=== PATIENT | male | born 1960 | race African-American/Black ===

== ENCOUNTER 2016-12-15 18:01 | Inpatient (IN) | payer BC, MEDICAID ==
--- NOTE | 2016-12-15 19:48 | ER Document Report ---
ED Medical Screen (RME) - General Chief Complaint: Leg Swelling Stated Complaint: LEG PAIN, SHORTNESS OF BREATH Time Seen by Provider: 12/15/16 19:38 Notes: Patient is a 56 year old male presenting to the ED for shortness of breath and lower extremity edema. Patient state he has some chronic lower edema but his current edema is way worse than his baseline. Patient also has shortness of breath which is exacerbated with movement, activity, and laying in suspine position. Patient is not on any medications. Patient's PCP is in [place] and he does not have one here locally. I have greeted and performed a rapid initial assessment of this patient. A comprehensive ED assessment and evaluation of the patient, analysis of test results and completion of the medical decision making process will be conducted by additional ED providers. TRAVEL OUTSIDE OF THE [place] IN LAST 30 DAYS: No - Related Data Allergies/Adverse Reactions: hydrochlorothiazide [Hydrochlorothiazide] Allergy (Verified 12/15/16 19:36) lisinopril [Lisinopril] Allergy (Verified 12/15/16 19:36) Past Medical History - Past Medical History Cardiac Medical History: Reports: Hx Hypertension Pulmonary Medical History: Reports: Hx Asthma, Hx COPD Renal/ Medical History: Reports: Hx Renal Insufficiency. Denies: Hx Peritoneal Dialysis Psychiatric Medical History: Denies: Hx Depression Physical Exam - Vital signs Vitals: Temp Pulse Resp BP Pulse Ox 98.4 F 84 20 210/108 H 98 12/15/16 18:32 12/15/16 18:32 12/15/16 18:32 12/15/16 18:32 12/15/16 18:32 - Notes Notes: GENERAL: Alert, interacts well. No acute distress. LUNGS: Decreased breath sounds bilaterally right greater than left, inspiratory and expiratory wheezes. HEART: Regular rate and rhythm. No murmurs, gallops, or rubs. EXTREMITIES: 3+ pitting edema bilaterally extending to the knee. Course - Vital Signs Vital signs: Temp Pulse Resp BP Pulse Ox 98.4 F 84 20 210/108 H 98 12/15/16 18:32 12/15/16 18:32 12/15/16 18:32 12/15/16 18:32 12/15/16 18:32 - Laboratory Result Diagrams: 12/15/16 19:50 12/15/16 19:50 Laboratory results interpreted by me: 12/15/16 19:50 RBC 2.11 L Hgb 5.7 L Hct 18.6 L MCH 26.8 L MCHC 30.5 L RDW 19.4 H Scribe Documentation - Scribe Written by Eloy:: Eloy Smith 12/15/16 19:45 acting as scribe for :: Petr
[2016-12-15 20:07] LABS: ABSOLUTE EOSINOPHILS # (AUTO) 0.1 10^3/uL (0.0-0.6); ABSOLUTE LYMPHOCYTES (AUTO) 1.1 10^3/uL (0.5-4.7); ABSOLUTE MONOCYTES (AUTO) 0.6 10^3/uL (0.1-1.4); ABSOLUTE NEUT (AUTO) 3.6 10^3/uL (1.7-8.2); BASOPHILS % (AUTO) 0.7 % (0-2); EOSINOPHILS % (AUTO) 1.5 % (0-6); HEMATOCRIT 18.6 % (37.9-51.0); HGB HCT DIFFERENCE -1.5; LYMPHOCYTES % (AUTO) 21.2 % (13-45); MEAN CORPUSCULAR HEMOGLOBIN 26.8 pg (27.0-33.4); MEAN CORPUSCULAR HGB CONC 30.5 g/dL (32.0-36.0); MEAN CORPUSCULAR VOLUME 88 fl (80-97); MONOCYTES % (AUTO) 10.3 % (3-13); RED BLOOD COUNT 2.11 10^6/uL (4.35-5.55); RED CELL DISTRIBUTION WIDTH 19.4 % (11.5-14.0); SEGMENTED NEUTROPHILS % (AUTO) 66.3 % (42-78); WHITE BLOOD COUNT 5.4 10^3/uL (4.0-10.5)
[2016-12-15 20:10] LABS: HEMOGLOBIN 5.7 g/dL (13.5-17.0)
[2016-12-15 20:11] LABS: PROTHROMBIN TIME 14.7 SEC (11.4-15.4)
[2016-12-15 20:30] LABS: ALANINE AMINOTRANSFERASE 39 U/L (21-72); ALBUMIN 3.3 g/dL (3.5-5.0); ALKALINE PHOSPHATASE 119 U/L (38-126); ANION GAP 13 (5-19); ASPARTATE AMINO TRANSFERASE 18 U/L (17-59); BILIRUBIN,DIRECT 0.3 mg/dL (0.0-0.4); BILIRUBIN,TOTAL 0.3 mg/dL (0.2-1.3); CALCIUM 7.8 mg/dL (8.4-10.2); CARBON DIOXIDE 17 mmol/L (22-30); CHLORIDE 113 mmol/L (98-107); GLUCOSE 93 mg/dL (75-110); SODIUM 143.3 mmol/L (137-145); TOTAL PROTEIN 6.2 g/dL (6.3-8.2)
--- NOTE | 2016-12-15 20:30 | ER Document Report ---
ED Extremity Problem, Lower - General Chief Complaint: Leg Swelling Stated Complaint: LEG PAIN, SHORTNESS OF BREATH Time Seen by Provider: 12/15/16 19:38 TRAVEL OUTSIDE OF THE [place] IN LAST 30 DAYS: No - Related Data Allergies/Adverse Reactions: hydrochlorothiazide [Hydrochlorothiazide] Allergy (Verified 12/15/16 19:36) lisinopril [Lisinopril] Allergy (Verified 12/15/16 19:36) Past Medical History - Social History Family History: None Patient has suicidal ideation: No Patient has homicidal ideation: No - Past Medical History Cardiac Medical History: Reports: Hx Hypertension Pulmonary Medical History: Reports: Hx Asthma, Hx COPD Renal/ Medical History: Reports: Hx Renal Insufficiency. Denies: Hx Peritoneal Dialysis Psychiatric Medical History: Denies: Hx Depression Physical Exam - Vital signs Vitals: Temp Pulse Resp BP Pulse Ox 98.4 F 84 20 210/108 H 98 12/15/16 18:32 12/15/16 18:32 12/15/16 18:32 12/15/16 18:32 12/15/16 18:32 Course - Vital Signs Vital signs: Temp Pulse Resp BP Pulse Ox 98.4 F 84 20 210/108 H 98 12/15/16 18:32 12/15/16 18:32 12/15/16 18:32 12/15/16 18:32 12/15/16 18:32 - Laboratory Result Diagrams: 12/15/16 19:50 12/15/16 19:50 Laboratory results interpreted by me: 12/15/16 19:50 RBC 2.11 L Hgb 5.7 L Hct 18.6 L MCH 26.8 L MCHC 30.5 L RDW 19.4 H
--- NOTE | 2016-12-15 20:31 | ER Document Report ---
ED General - General Chief Complaint: Leg Swelling Stated Complaint: LEG PAIN, SHORTNESS OF BREATH Time Seen by Provider: 12/15/16 19:38 Mode of Arrival: Ambulatory Information source: Patient Notes: 56-year-old CRF HTN male who lives in [place] came into the emergency room tonight because of swelling to both of his legs that started Wednesday. pcp doctor is in [place] He states he has never had a blood transfusion or hemodialysis and his hemoglobin here is 5.7. Prior hemoglobin in our system show 7 - 8. Denies vomiting blood, hematuria, or anal bleeding. 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 TRAVEL OUTSIDE OF THE [place] IN LAST 30 DAYS: No - Related Data Allergies/Adverse Reactions: hydrochlorothiazide [Hydrochlorothiazide] Allergy (Verified 12/15/16 19:36) lisinopril [Lisinopril] Allergy (Verified 12/16/16 15:58) Angioneurotic Edema Home Medications: Current Home Medications No Home Medications 12/16/16 [History] Past Medical History - General Information source: Patient - Social History Smoking Status: Unknown if Ever Smoked Frequency of alcohol use: None Drug Abuse: None Lives with: Alone Family History: None Patient has suicidal ideation: No Patient has homicidal ideation: No - Past Medical History Cardiac Medical History: Reports: Hx Hypertension Pulmonary Medical History: Reports: Hx Asthma, Hx COPD Renal/ Medical History: Reports: Hx End Stage Renal Disease, Hx Renal Insufficiency. Denies: Hx Peritoneal Dialysis Psychiatric Medical History: Denies: Hx Depression Review of Systems - Review of Systems Constitutional: No symptoms reported EENT: No symptoms reported Cardiovascular: No symptoms reported Respiratory: No symptoms reported Gastrointestinal: No symptoms reported Genitourinary: No symptoms reported Male Genitourinary: No symptoms reported Musculoskeletal: See HPI Skin: No symptoms reported Hematologic/Lymphatic: No symptoms reported Neurological/Psychological: No symptoms reported Physical Exam - Vital signs Vitals: Temp Pulse Resp BP Pulse Ox 98.4 F 84 20 210/108 H 98 12/15/16 18:32 12/15/16 18:32 12/15/16 18:32 12/15/16 18:32 12/15/16 18:32 Interpretation: Normal - General General appearance: Appears well, Alert In distress: None - HEENT Head: Normocephalic, Atraumatic Eyes: Normal Conjunctiva: Normal Pupils: PERRL - Respiratory Respiratory status: No respiratory distress Chest status: Nontender Breath sounds: Wheezing - bilaterally Chest palpation: Normal - Cardiovascular Rhythm: Regular Heart sounds: Normal auscultation Murmur: No - Abdominal Inspection: Normal Distension: No distension Bowel sounds: Normal Tenderness: Nontender Organomegaly: No organomegaly - Genitourinary Scrotum: Normal - no edema - Back Back: Normal, Nontender. No: CVA tenderness - Extremities General upper extremity: Normal inspection, Nontender, Normal color, Normal ROM , Normal temperature General lower extremity: Nontender, Edema - bilateral pitting below the knees, Normal color, Normal ROM, Normal temperature, Normal weight bearing. No: Jair' s sign - Neurological Neuro grossly intact: Yes Cognition: Normal Orientation: AAOx4 [place] Coma Scale Eye Opening: Spontaneous [place] Coma Scale Verbal: Oriented [place] Coma Scale Motor: Obeys Commands [place] Coma Scale Total: 15 Speech: Normal Motor strength normal: LUE, RUE, LLE, RLE Sensory: Normal - Psychological Associated symptoms: Normal mood, Flat affect - Skin Skin Temperature: Warm Skin Moisture: Dry Skin Color: Normal Course - Re-evaluation Re-evalutation: 12/15/16 21:34 creatinine 15, potassium 6.6. bun 115, called dr. urbina , she will put in for dialysis in the morning and was OK with the orders except she wanted kaexolate 60gms given po and to Call dr. turk for Tialysis catheter put in. Orders per dr. banegas OK. No EKG changes. 12/15/16 21:40 dr. turk will put tialysis catheter in the pt. 12/15/16 21:45 dr. lowe admit to ICU 12/15/16 23:14 pt wanted more time before trialysis catheter is inseted so dr. turk left. I had spent 20 minutes. I have spent another 15 minutes reading the consent and the pt signed them. 12/15/16 23:25 was called again and the patient has signed the consent forms. Dilaudid 1 mg has been ordered per Dr. Bee's request. The patient is being transferred to room 606 in ICU 12/15/16 23:31 spoke to his brother who states he is of right mind to make his own decisions, works every day as a cook. I have asked his brother to call him and he said he would call him on his cell phone. 12/17/16 02:01 12/17/16 02:05 - Vital Signs Vital signs: Temp Pulse Resp BP Pulse Ox 97.6 F 75 15 190/109 H 97 12/17/16 00:00 12/16/16 19:00 12/16/16 22:06 12/16/16 22:06 12/16/16 22:06 - Laboratory Result Diagrams: 12/16/16 14:30 12/16/16 05:45 Laboratory results interpreted by me: 12/15/16 12/15/16 12/15/16 19:50 19:50 19:50 RBC 2.11 L Hgb 5.7 L Hct 18.6 L MCH 26.8 L MCHC 30.5 L RDW 19.4 H Potassium 6.6 H* Chloride 113 H Carbon Dioxide 17 L BUN 119 H Creatinine 15.25 H Est GFR ( Amer) 4 L Est GFR (Non-Af Amer) 3 L Calcium 7.8 L NT-Pro-B Natriuret Pep 93720 H Total Protein 6.2 L Albumin 3.3 L Urine Protein Urine Glucose (UA) Urine Blood Crossmatch 12/15/16 12/15/16 12/15/16 21:00 21:00 21:30 RBC 2.03 L Hgb 5.5 L Hct 17.7 L MCH MCHC 31.0 L RDW 19.1 H Potassium Chloride Carbon Dioxide BUN Creatinine Est GFR ( Amer) Est GFR (Non-Af Amer) Calcium NT-Pro-B Natriuret Pep Total Protein Albumin Urine Protein 100 H Urine Glucose (UA) 50 H Urine Blood SMALL H Crossmatch See Detail Discharge - Discharge Clinical Impression: Acute on chronic renal failure, Hypertension, Peripheral edema, hyperkalemia, COPD Disposition: ADMITTED INPATIENT Admitting Provider: Hospitalist Unit Admitted: ICU
[2016-12-15 20:37] LABS: BLOOD UREA NITROGEN 119 mg/dL (7-20)
--- NOTE | 2016-12-15 20:40 | RADIOLOGY REPORT (SQ) ---
EXAM DESCRIPTION: CHEST PA/LAT COMPLETED DATE/TIME: 12/15/2016 8:30 pm REASON FOR STUDY: Dyspnea COMPARISON: 11/19/2015 EXAM PARAMETERS: NUMBER OF VIEWS: two views TECHNIQUE: Digital Frontal and Lateral radiographic views of the chest acquired. RADIATION DOSE: NA LIMITATIONS: none FINDINGS: LUNGS AND PLEURA: Lung huff remain slightly hyperexpanded. No consolidation or effusion s. MEDIASTINUM AND HILAR STRUCTURES: No masses or contour abnormalities. HEART AND VASCULAR STRUCTURES: Heart is at the evidence of normal on today's study. No failure. BONES: No acute findings. HARDWARE: None in the chest. OTHER: No other significant finding. IMPRESSION: 1. Mild cardiac enlargement since prior study. No failure. Stable COPD. TECHNICAL DOCUMENTATION: JOB ID: [id number] [employer]- All Rights Reserved
[2016-12-15 20:51] LABS: CREATININE RESULT 15.25 mg/dL (0.52-1.25)
[2016-12-15 20:52] LABS: POTASSIUM 6.6 mmol/L (3.6-5.0)
[2016-12-15 21:21] LABS: HEMATOCRIT 17.7 % (37.9-51.0); HGB HCT DIFFERENCE -1.2; MEAN CORPUSCULAR HEMOGLOBIN 27.1 pg (27.0-33.4); MEAN CORPUSCULAR VOLUME 87 fl (80-97); RED BLOOD COUNT 2.03 10^6/uL (4.35-5.55); RED CELL DISTRIBUTION WIDTH 19.1 % (11.5-14.0); WHITE BLOOD COUNT 5.3 10^3/uL (4.0-10.5)
[2016-12-15 21:22] LABS: HEMOGLOBIN 5.5 g/dL (13.5-17.0)
[2016-12-15] MEDS ORDERED: INSULIN REG, HUMAN 100 UNIT/ML 3 ML VIAL (PYX) IV ONE (21:25)
[2016-12-15] MEDS ORDERED: DEXTROSE 50%-WATER 25 GM/50 ML DISP.SYRIN IV ONE (21:26)
[2016-12-15] MEDS ORDERED: ALBUTEROL SULFATE 0.083% NEB 2.5 MG/3 ML AMPUL NEB ONE (21:26)
[2016-12-15] MEDS ORDERED: CALCIUM GLUCONATE 1000 MG/10 ML INJ IV ONE (21:27)
[2016-12-15] MEDS ORDERED: NORMAL SALINE 250 ML IV PRN ×2 (21:27)
[2016-12-15] MEDS ORDERED: FUROSEMIDE INJ/PF 40 MG/4 ML SDV IV ONE ×2 (21:37→21:47)
[2016-12-15] MEDS ORDERED: ACETAMINOPHEN 325 MG TABLET PO PRN (21:48)
[2016-12-15] MEDS ORDERED: SODIUM BICARBONATE 650 MG TABLET PO SCH (22:00)
[2016-12-15] MEDS ORDERED: SODIUM POLYSTYRENE SULFONATE 15 GM/60 ML PO ONE (22:30)
[2016-12-15] MEDS: CLONIDINE HCL 0.2 MG TABLET PO SCH (22:37)
[2016-12-15] MEDS: HEPARIN SOD (PORCINE) 5,000 UNIT/ML 1 ML SYRINGE SUBCUT SCH (22:39)
[2016-12-15] MEDS: HYDRALAZINE HCL INJ/PF 20 MG/1 ML SDV IV PRN (22:42)
[2016-12-15 22:56] LABS: APPEARANCE,URINE CLEAR; BILIRUBIN,URINE NEGATIVE (NEGATIVE); GLUCOSE, URINE 50 mg/dL (NEGATIVE); KETONES,URINE NEGATIVE (NEGATIVE); LEUKOCYTE ESTERASE,URINE NEGATIVE (NEGATIVE); NITRITE,URINE NEGATIVE (NEGATIVE); PROTEIN,URINE 100 mg/dL (NEGATIVE); URINE SPECIFIC GRAVITY 1.008; UROBILINOGEN,URINE NEGATIVE mg/dL (<2.0)
[2016-12-15 23:09] LABS: FERRITIN 7.44 ng/mL (17.9-464.0)
[2016-12-15 23:15] LABS: URINE BARBITURATES SCREEN NEGATIVE; URINE METHADONE SCREEN NEGATIVE; URINE OPIATES LOW NEGATIVE; URINE PHENCYCLIDINE SCREEN NEGATIVE
[2016-12-15] MEDS ORDERED: HYDROMORPHONE HCL INJ/PF 2 MG/ML AMPULE IV ONE (23:25)
[2016-12-15 23:53] LABS: ADD HIVPANEL? NO; HIV (1 AND 2) ANTIBODY NEGATIVE (NEGATIVE)
[2016-12-15] MEDS ORDERED: HYDROMORPHONE HCL INJ/PF 2 MG/ML AMPULE ONE (23:54)
[2016-12-15] MEDS ORDERED: MAGNESIUM SULFATE 100 ML IV ONE (23:59)
[2016-12-16] MEDS ORDERED: LORAZEPAM INJ 2 MG/1 ML VIAL ONE (00:06)
[2016-12-16] MEDS ORDERED: LIDOCAINE 1% INJ-PF (10 MG/ML) 30 ML SDV ONE (00:18)
[2016-12-16] MEDS ORDERED: MAGNESIUM SULFATE/D5W 1 GM/100 ML RTUPB IV ONE (00:32)
[2016-12-16] MEDS ORDERED: DIAZEPAM INJ 10 MG/2 ML DISP.SYRIN IV PRN (00:58)
[2016-12-16] MEDS ORDERED: NITROGLYCERIN/D5W 50 MG/250 ML RTUINJ IV ONE ×2 (00:58→10:01)
[2016-12-16] MEDS ORDERED: LORAZEPAM INJ 2 MG/1 ML VIAL IV ONE (01:00)
[2016-12-16] MEDS: MAGNESIUM SULFATE/D5W 1 GM/100 ML RTUPB IV SCH ×3 (01:41→03:53)
[2016-12-16] MEDS ORDERED: DEXTROSE 5%-1/2 NORMAL SALINE 1,000 ML IV ONE (02:11)
[2016-12-16 02:14] LABS: ANION GAP 13 (5-19); BLOOD UREA NITROGEN 118 mg/dL (7-20); CALCIUM 7.9 mg/dL (8.4-10.2); CARBON DIOXIDE 16 mmol/L (22-30); CHLORIDE 115 mmol/L (98-107); GLUCOSE 67 mg/dL (75-110); SODIUM 143.6 mmol/L (137-145)
--- NOTE | 2016-12-16 02:19 | OPERATIVE REPORT E ---
Operative Report NAME: YUDITH DRAKE : 1960 AGE: 56Y DATE OF SURGERY: 12/15/2016 ROOM: 606 SURGEON: AMBER GOMEZ M.D. INDICATION FOR PROCEDURE: This 56-year-old male presented to the emergency room because of shortness of breath. Patient has history of chronic venous insufficiency and has been noncompliant. Patient's creatinine is 15; a year ago, it was 8. The patient has chronic renal failure and potassium was 6.6. Because of the renal failure and impending congestive heart failure from fluid overload, the patient is in need of dialysis first thing in the morning with a *------* hyperkalemia. Trialysis catheter has been requested for placement into the internal jugular vein. PROCEDURE: After consent was obtained, the patient's right neck was prepped and draped in the usual sterile manner. A time-out was achieved and then the right internal jugular vein was accessed percutaneously. Once there was a flash of venous blood in the syringe, the syringe was removed and a guidewire was advanced through the needle into the superior vena cava, which was confirmed by small amount of ectopy that was relieved when the guidewire was pulled back. The vein dilators were then placed over the guidewire and then using the Seldinger technique, the Trialysis catheter was advanced over the guidewire and the guidewire was removed. There was good flow through all lumen and each was flushed with saline. The catheter was secured in usual manner using 3-0 nylon and chest x-ray has been requested. Patient tolerated the procedure well. There were good breath sounds in the right hemithorax and patient will be dialyzed with this catheter first thing in the morning. DICTATING PHYSICIAN: AMBER GOMEZ M.D. [id number] PHY#: [id number] ID: [id number] JOB#: [id number] ACCT: [id number] cc:AMBER GOMEZ M.D. >
--- NOTE | 2016-12-16 02:23 | RADIOLOGY REPORT (SQ) ---
EXAM DESCRIPTION: CHEST SINGLE VIEW COMPLETED DATE/TIME: 12/16/2016 1:39 am REASON FOR STUDY: Trialysis catheter placement COMPARISON: 12/15/2016. EXAM PARAMETERS: NUMBER OF VIEWS: One view. TECHNIQUE: Single frontal radiographic view of the chest acquired. RADIATION DOSE: NA LIMITATIONS: Rotation. FINDINGS: LUNGS AND PLEURA: Mild mixed interstitial and airspace opacity. MEDIASTINUM AND HILAR STRUCTURES: No masses. Contour normal. HEART AND VASCULAR STRUCTURES: Heart normal in size. Normal vasculature. BONES: No acute findings. HARDWARE: Right internal jugular Trialysis catheter tip near the cavoatrial junction, partially obscu red. OTHER: No other significant finding. IMPRESSION: Adequate appearing right IJ line. Otherwise, stable. TECHNICAL DOCUMENTATION: JOB ID: [id number]
[2016-12-16 02:27] LABS: CREATININE RESULT 15.06 mg/dL (0.52-1.25)
[2016-12-16] MEDS ORDERED: CALCIUM GLUCONATE 1000 MG/10 ML INJ IV ONE (03:00)
[2016-12-16] MEDS ORDERED: NORMAL SALINE 250 ML IV PRN ×2 (04:30)
[2016-12-16] MEDS: DIAZEPAM 2 MG TABLET PO PRN ×2 (04:37→13:47)
[2016-12-16] MEDS ORDERED: CALCIUM GLUCONATE 1,000 MG in DEXTROSE 5%-WATER 50 ML IV ONE (04:45)
[2016-12-16] MEDS: CLONIDINE HCL 0.2 MG TABLET PO SCH ×3 (05:28→21:44)
[2016-12-16] MEDS: HEPARIN SOD (PORCINE) 5,000 UNIT/ML 1 ML SYRINGE SUBCUT SCH ×3 (05:29→21:45)
--- NOTE | 2016-12-16 06:09 | PDOC H&P ---
History of Present Illness Admission Date/PCP: 12/15/16 21:48 Patient complains of: Shortness of breath History of Present Illness: YUDITH DRAKE JR is a 56 year old male with history of hypertension, stage IV chronic kidney disease, anemia and cocaine abuse. He been in his usual state of health until approximately 24 hours prior to presentation developing shortness of breath and lower extremity edema which aeration and emergency room. In the emergency room he was found to have hypertensive emergency at 240/ 115, creatinine of 15, hemoglobin of 5.5, potassium of 6.6 without peak T waves , volume overload, and cocaine positive toxicology. He admits medication and lifestyle noncompliance, started on IV Lasix, calcium gluconate and insulin. He is referred to the hospitalist for admission. Surgery is consulted for trialysis catheter placement. Past Medical History Cardiac Medical History: Reports: Hypertension Pulmonary Medical History: Reports: Asthma, Chronic Obstructive Pulmonary Disease (COPD) Renal/ Medical History: Reports: Chronic Kidney Disease Psychiatric Medical History: Reports: Substance Abuse Denies: Depression Social History Information Source: Patient, Emergency Med Personnel, [facility] Records Lives with: Alone Smoking Status: Former Smoker Frequency of Alcohol Use: None Hx Recreational Drug Use: Yes Drugs: Cocaine Hx Prescription Drug Abuse: Yes - Advance Directive Resuscitation Status: Full Code Family History Family History: Hypertension Parental Family History Reviewed: Yes Children Family History Reviewed: Yes Sibling(s) Family History Reviewed.: Yes Medication/Allergy Home Medications: Albuterol Sulfate [Ventolin Hfa] 1 - 2 puff IH Q4 PRN 03/19/15 Fluticasone/Salmeterol [Advair 250-50 Diskus 14 Dose/Diskus] 1 inh IH Q12H 03/19 Tiotropium [place] [Spiriva Handihaler 18 mcg/dose (30 Dose)] 1 cap IH DAILY 02/23 Amlodipine Besylate [Norvasc 10 mg Tablet] 10 mg PO DAILY #30 tablet 03/21/15 Clonidine HCl [Catapres 0.2 mg Tablet] 0.2 mg PO Q8 #90 tablet 03/21/15 Ferrous Sulfate [Feosol 325 mg Tablet] 325 mg PO BIDPCBS #60 tablet 03/21/15 Furosemide [Lasix 80 mg Tablet] 80 mg PO DAILY #30 tablet 03/21/15 Sodium Bicarbonate [Sodium Bicarbonate 650 mg Tablet] 650 mg PO Q12 #60 tablet 03/21/15 Allergies/Adverse Reactions: hydrochlorothiazide [Hydrochlorothiazide] Allergy (Verified 12/15/16 19:36) lisinopril [Lisinopril] Allergy (Verified 12/15/16 19:36) Review of Systems Constitutional: ABSENT: chills, fever(s), headache(s), weight gain, weight loss Eyes: ABSENT: visual disturbances Ears: ABSENT: hearing changes Cardiovascular: ABSENT: chest pain, dyspnea on exertion, edema, orthropnea, palpitations Respiratory: ABSENT: cough, hemoptysis Gastrointestinal: ABSENT: abdominal pain, constipation, diarrhea, hematemesis, hematochezia, nausea, vomiting Genitourinary: ABSENT: dysuria, hematuria Musculoskeletal: ABSENT: joint swelling Integumentary: ABSENT: rash, wounds Neurological: ABSENT: abnormal gait, abnormal speech, confusion, dizziness, focal weakness, syncope Psychiatric: ABSENT: anxiety, depression, homidical ideation, suicidal ideation Endocrine: ABSENT: cold intolerance, heat intolerance, polydipsia, polyuria Hematologic/Lymphatic: ABSENT: easy bleeding, easy bruising Physical Exam Vital Signs: Temp Pulse Resp BP Pulse Ox 96.0 F L 84 13 190/114 H 98 12/16/16 04:00 12/16/16 02:58 12/16/16 04:25 12/16/16 04:25 12/16/16 04:25 Intake & Output 12/14/16 12/15/16 12/16/16 11:59 11:59 11:59 Intake Total 720 Output Total 600 Balance 120 Weight 90.7 kg General appearance: PRESENT: cooperative, mild distress, well-developed, well- nourished Head exam: PRESENT: atraumatic, normocephalic Eye exam: PRESENT: conjunctiva pink, EOMI, PERRLA. ABSENT: scleral icterus Ear exam: PRESENT: normal external ear exam Mouth exam: PRESENT: moist, tongue midline Neck exam: ABSENT: carotid bruit, JVD, lymphadenopathy, thyromegaly Respiratory exam: PRESENT: accessory muscle use, prolonged expiratory phas, retraction, symmetrical, tachypnea, wheezes. ABSENT: rhonchi, stridor Cardiovascular exam: PRESENT: gallop, RRR, +S1, +S2, systolic murmur, tachycardia. ABSENT: diastolic murmur Pulses: PRESENT: normal dorsalis pedis pul Vascular exam: PRESENT: normal capillary refill GI/Abdominal exam: PRESENT: normal bowel sounds, soft. ABSENT: distended, guarding, mass, organolmegaly, rebound, tenderness Rectal exam: PRESENT: deferred Extremities exam: PRESENT: full ROM, +1 edema. ABSENT: clubbing, joint swelling , tenderness Neurological exam: PRESENT: alert, awake, oriented to person, oriented to place , oriented to time, oriented to situation, CN II-XII grossly intact. ABSENT: motor sensory deficit Psychiatric exam: PRESENT: anxious Skin exam: PRESENT: dry, intact, warm. ABSENT: cyanosis, rash Results Laboratory Results: 12/16/16 01:45 12/15/16 12/15/16 12/15/16 21:53 21:53 21:53 Retic Count (auto) 2.64 Absolute Retic 0.054 Sodium Potassium Chloride Carbon Dioxide Anion Gap BUN Creatinine Est GFR ( Amer) Est GFR (Non-Af Amer) Glucose Calcium Magnesium 1.1 L* Iron 20.8 L TIBC 336 % Saturation 6 Ferritin 7.44 L Vitamin B12 535.0 Folate 11.00 12/16/16 01:45 Retic Count (auto) Absolute Retic Sodium 143.6 Potassium 6.0 H* Chloride 115 H Carbon Dioxide 16 L Anion Gap 13 BUN 118 H Creatinine 15.06 H Est GFR ( Amer) 4 L Est GFR (Non-Af Amer) 3 L Glucose 67 L Calcium 7.9 L Magnesium Iron TIBC % Saturation Ferritin Vitamin B12 Folate Impressions: Chest X-Ray 12/16/16 00:28 IMPRESSION: Adequate appearing right IJ line. Otherwise, stable. Assessment & Plan - Diagnosis (1) Acute on chronic renal failure Is this a current diagnosis for this admission?: YesPlan: Non-oliguric secondary to chronic uncontrolled hypertension, noncompliance and cocaine abuse. Trialysis catheter placed for hemodialysis, IV Lasix initiated, nephrology consultation pending avoiding nephrotoxic meds and doses. (2) Hypertensive emergency Is this a current diagnosis for this admission?: YesPlan: IV nitroglycerin, clonidine, Norvasc, hydralazine and Valium initiated (3) Cocaine abuse Is this a current diagnosis for this admission?: YesPlan: IV Valium initiated and supportive care consider outpatient rehab referral (4) Hyperkalemia Is this a current diagnosis for this admission?: YesPlan: IV calcium gluconate insulin, albuterol ordered, Kayexalate follow up chemistry and EKG (5) Anemia Is this a current diagnosis for this admission?: YesPlan: Likely multifactorial secondary to iron deficiency and chronic kidney disease 4 units of packed red blood cells ordered, anemia studies pending - Time Time Spent: 50 to 70 Minutes
[2016-12-16 06:14] LABS: ALANINE AMINOTRANSFERASE 40 U/L (21-72); ALBUMIN 2.9 g/dL (3.5-5.0); ALKALINE PHOSPHATASE 105 U/L (38-126); ANION GAP 16 (5-19); ASPARTATE AMINO TRANSFERASE 17 U/L (17-59); BILIRUBIN,DIRECT 0.3 mg/dL (0.0-0.4); BILIRUBIN,TOTAL 0.5 mg/dL (0.2-1.3); BLOOD UREA NITROGEN 118 mg/dL (7-20); CALCIUM 8.1 mg/dL (8.4-10.2); CARBON DIOXIDE 16 mmol/L (22-30); CHLORIDE 112 mmol/L (98-107); CREATINE KINASE 823 U/L (55-170); GLUCOSE 111 mg/dL (75-110); SODIUM 143.7 mmol/L (137-145); TOTAL PROTEIN 5.6 g/dL (6.3-8.2)
[2016-12-16 06:24] LABS: CREATININE RESULT 14.66 mg/dL (0.52-1.25)
[2016-12-16 06:26] LABS: CREATINE KINASE MB 10.6 ng/mL (<4.55)
[2016-12-16 06:34] LABS: TROPONIN I 0.341 ng/mL
[2016-12-16] MEDS: HYDRALAZINE HCL INJ/PF 20 MG/1 ML SDV IV PRN (06:58)
[2016-12-16] MEDS ORDERED: ASPIRIN 81 MG TABLET, CHEWABLE PO ONE ×2 (08:15→09:58)
--- NOTE | 2016-12-16 09:11 | EKG REPORT ---
SEVERITY:- ABNORMAL ECG - SINUS RHYTHM LEFT VENTRICULAR HYPERTROPHY : Confirmed by: Verito Strong MD 16-Dec-2016 09:10:13
--- NOTE | 2016-12-16 09:11 | EKG REPORT ---
SEVERITY:- ABNORMAL ECG - SINUS RHYTHM PROBABLE LEFT VENTRICULAR HYPERTROPHY : Confirmed by: Verito Strong MD 16-Dec-2016 09:10:09
[2016-12-16] MEDS ORDERED: AMLODIPINE BESYLATE 10 MG TABLET PO SCH (10:00)
[2016-12-16 10:05] LABS: CREATINE KINASE MB 10.9 ng/mL (<4.55); TROPONIN I 0.305 ng/mL
[2016-12-16] MEDS: FERROUS SULFATE 325 MG TABLET PO SCH ×2 (10:07→17:08)
[2016-12-16] MEDS: DOCUSATE SODIUM 100 MG CAPSULE PO SCH ×2 (10:08→17:08)
[2016-12-16] MEDS: NITROGLYCERIN/D5W 250 ML IV PRN ×2 (10:09→18:16)
[2016-12-16] MEDS ORDERED: HEPARIN SOD (PORCINE) 1,000 UNIT/ML 10 ML VIAL IV PRN (10:14)
--- NOTE | 2016-12-16 10:25 | PDOC PROGRESS REPORT ---
Subjective Progress Note for:: 12/16/16 Physical Exam Vital Signs: Temp Pulse Resp BP Pulse Ox 97.4 F 77 12 172/102 H 98 12/16/16 08:00 12/16/16 08:00 12/16/16 08:00 12/16/16 08:00 12/16/16 08:00 Intake & Output 12/15/16 12/16/16 12/17/16 06:59 06:59 06:59 Intake Total 1401 300 Output Total 1000 450 Balance 401 -150 Weight 90.7 kg Exam: GENERAL: lethargic, on dialysis, acutely ill-appearing HEENT: Conjunctiva clear, nonicteric, moist mucous membranes, + JVD, midline trachea, right-sided dialysis catheter RESPIRATORY: rales laterally to mid lung CARDIAC: Regular rate and rhythm; +s4, +sm lsb ABDOMEN: Soft, distended, nontender, positive bowel sounds, no rebound, no guarding EXTREMETIES: No cyanosis, clubbing; 4+ pitting edema NEUROLOGIC: Lethargic, unable to assess SKIN: No rash, wounds Results Laboratory Results: 12/16/16 05:45 12/15/16 12/15/16 12/15/16 21:53 21:53 21:53 Retic Count (auto) 2.64 Absolute Retic 0.054 Sodium Potassium Chloride Carbon Dioxide Anion Gap BUN Creatinine Est GFR ( Amer) Est GFR (Non-Af Amer) Glucose Calcium Magnesium 1.1 L* Iron 20.8 L TIBC 336 % Saturation 6 Ferritin 7.44 L Total Bilirubin AST ALT Alkaline Phosphatase Total Protein Albumin Vitamin B12 535.0 Folate 11.00 12/16/16 12/16/16 12/16/16 01:45 05:45 08:40 Retic Count (auto) Absolute Retic Sodium 143.6 143.7 Potassium 6.0 H* 6.0 H* Chloride 115 H 112 H Carbon Dioxide 16 L 16 L Anion Gap 13 16 BUN 118 H 118 H Creatinine 15.06 H 14.66 H Est GFR ( Amer) 4 L 4 L Est GFR (Non-Af Amer) 3 L 3 L Glucose 67 L 111 H Calcium 7.9 L 8.1 L Magnesium 1.9 Iron TIBC % Saturation Ferritin Total Bilirubin 0.5 AST 17 ALT 40 Alkaline Phosphatase 105 Total Protein 5.6 L Albumin 2.9 L Vitamin B12 Folate 12/16/16 12/16/16 12/16/16 05:45 05:45 08:40 Creatine Kinase 823 H 809 H CK-MB (CK-2) 10.60 H Troponin I 0.341 12/16/16 08:40 Creatine Kinase CK-MB (CK-2) 10.90 H Troponin I 0.305 Impressions: Chest X-Ray 12/16/16 00:28 IMPRESSION: Adequate appearing right IJ line. Otherwise, stable. Assessment & Plan - Diagnosis (1) Acute on chronic renal failure Qualifiers: Chronic kidney disease stage: stage 5, not on chronic dialysis Is this a current diagnosis for this admission?: YesPlan: Patient with stage IV CKD who approximately 2 years ago was instructed that he likely would need dialysis, but refused at that time. Patient was lost to follow-up. Patient represented last night with acute congestive heart failure and concurrent worsening renal failure with a creatinine of 15 and hyperkalemia and metabolic acidosis. Patient is currently receiving emergent hemodialysis and we appreciate nephrology's input into this case. Due to patient's current uremia, unable to assess if patient would want dialysis normally. Unable to reach family at this time. Continue with current plan. (2) Hypertensive emergency Is this a current diagnosis for this admission?: YesPlan: Patient currently on nitroglycerin drip. Blood pressure of 240/115 noted in the emergency department. Goal blood pressure today of systolic of 180. (3) Metabolic acidosis Is this a current diagnosis for this admission?: Yes (4) Acute congestive heart failure Qualifiers: Congestive heart failure type: unspecified congestive heart failure type Qualified Code(s): I50.9 - Heart failure, unspecified Is this a current diagnosis for this admission?: YesPlan: We will obtain echo. No beta-blockers secondary to cocaine use. No LIBERTY secondary to angioedema. Patient will likely be placed on ARB prior to discharge. (5) Elevated troponin Is this a current diagnosis for this admission?: YesPlan: Will likely secondary to hypertensive emergency, cocaine abuse, and symptomatic anemia. Continue to follow troponin. Repeat serial EKG. Cannot rule out coronary vasospasm. Continue nitroglycerin drip, aspirin. No beta blockers at this time secondary to cocaine abuse. (6) Acute metabolic encephalopathy Is this a current diagnosis for this admission?: YesPlan: Secondary to uremia will continue to follow after dialysis (7) Iron deficiency anemia Qualifiers: Iron deficiency anemia type: unspecified iron deficiency Qualified Code(s): D50.9 - Iron deficiency anemia, unspecified Is this a current diagnosis for this admission?: YesPlan: Patient is occult blood negative. This is a multifactorial anemia due to iron deficiency and anemia of chronic disease. Will give patient 4 units of packed red blood cells with a goal hemoglobin of 8 and no more than 11. (8) Anemia in chronic kidney disease Qualifiers: Chronic kidney disease stage: stage 5, not on chronic dialysis Qualified Code(s): N18.5 - Chronic kidney disease, stage 5; D63.1 - Anemia in chronic kidney disease Is this a current diagnosis for this admission?: Yes (9) Cocaine abuse Is this a current diagnosis for this admission?: Yes (10) Hyperkalemia Is this a current diagnosis for this admission?: YesPlan: Continue telemetry monitoring - Time Critical Time spent with patient: 35 or more minutes Medications reviewed and adjusted accordingly: Yes
[2016-12-16 10:38] LABS: ABSOLUTE LYMPHOCYTES (AUTO) 0.9 10^3/uL (0.5-4.7); ABSOLUTE MONOCYTES (AUTO) 0.6 10^3/uL (0.1-1.4); ABSOLUTE NEUT (AUTO) 4.7 10^3/uL (1.7-8.2); BASOPHILS % (AUTO) 0.3 % (0-2); EOSINOPHILS % (AUTO) 0.3 % (0-6); HEMATOCRIT 23.1 % (37.9-51.0); HGB HCT DIFFERENCE -0.6; LYMPHOCYTES % (AUTO) 14.8 % (13-45); MEAN CORPUSCULAR HEMOGLOBIN 28.1 pg (27.0-33.4); MEAN CORPUSCULAR HGB CONC 32.5 g/dL (32.0-36.0); MEAN CORPUSCULAR VOLUME 87 fl (80-97); MONOCYTES % (AUTO) 9.7 % (3-13); RED BLOOD COUNT 2.68 10^6/uL (4.35-5.55); RED CELL DISTRIBUTION WIDTH 18.1 % (11.5-14.0); SEGMENTED NEUTROPHILS % (AUTO) 74.9 % (42-78); WHITE BLOOD COUNT 6.2 10^3/uL (4.0-10.5)
[2016-12-16 10:42] LABS: HEMOGLOBIN 7.5 g/dL (13.5-17.0)
[2016-12-16] MEDS: TIOTROPIUM BROMIDE DPI 5 CAP/KIT (18 MCG/CAP) IH SCH (10:44)
[2016-12-16] MEDS: FLUTICASONE/SALMETEROL DISKUS 250-50 MCG/DOSE IH SCH ×2 (10:44→21:46)
[2016-12-16 15:35] LABS: HEMATOCRIT 26.4 % (37.9-51.0); HEMOGLOBIN 8.6 g/dL (13.5-17.0); HGB HCT DIFFERENCE -0.6; MEAN CORPUSCULAR HEMOGLOBIN 27.8 pg (27.0-33.4); MEAN CORPUSCULAR HGB CONC 32.7 g/dL (32.0-36.0); MEAN CORPUSCULAR VOLUME 85 fl (80-97); RED BLOOD COUNT 3.11 10^6/uL (4.35-5.55); RED CELL DISTRIBUTION WIDTH 17.6 % (11.5-14.0); WHITE BLOOD COUNT 5.6 10^3/uL (4.0-10.5)
[2016-12-16 15:50] LABS: CREATINE KINASE MB 9.04 ng/mL (<4.55)
[2016-12-16 16:00] LABS: TROPONIN I 0.191 ng/mL
--- NOTE | 2016-12-16 16:22 | PDOC CONSULTATION ---
Consultation Consult Date: 12/16/16 Attending physician:: SOMMER CARTER Consult reason:: I was asked by the emergency room provider, Cecilia Gutierrez last night, and the hospitalist service care of Dr. Carter today to see the patient for emergent need for initiation of renal replacement therapy due to uremia and hyperkalemia. History of Present Illness Admission Date/PCP: 12/15/16 21:48 History of Present Illness: Patient is a 56-year-old -[place] gentleman with history of chronic kidney disease stage V, hypertension, COPD and noncompliance who presented himself in the emergency room last night because of worsening lower extremity edema. Patient related that left leg swelling started about 4 days ago Wednesday. He denies shortness of breath to me when I asked him, however initial notes from the emergency room and admitting physician states that he was short of breath and he also told one of the ICU nurses today that he was actually short of breath. He denies any chest pain. He admits feeling tired sometimes, but denies any nausea nor vomiting. He admits that he has good appetite. Today when I was interviewing him he seems to be very sleepy telling me that he did not sleep the whole night since he was in the emergency room. His affect seems to be also bland and he seems to be not interested in communicating to anyone this morning. Patient is not a very good historian as he does not appear to give too much information. Last night he presented with a BUN of 119, creatinine of 15.25 with a GFR of 4, potassium of 6.6 and bicarbonate of 17. Previous records from March 21, 2015 revealed that at that time he had a BUN of 70, and creatinine of 9.11. Patient was hospitalized in March 2015 for the same reason of hyperkalemia and worsening kidney function. At that time the patient was clinically nonuremic. I had seen the patient in consultation at that time. I discuss about chronic kidney disease and its progression to the point of requiring renal replacement therapy at that time. I also discussed the benefits and risk of not going to dialysis. After a long discussion with the patient at the time he refused hemodialysis to be initiated. Patient was supposed to follow-up with her community living instructor but he did not follow-up with any provider after discharge. He said the last time he saw his primary care provider at [place], [place] was more than a year ago. He also admits that he has not been taking his medication since discharge. This morning I saw him during initiation of hemodialysis. Blood pressure seems a little bit better than when he came in. He is currently still on nitro drip. Dialysis catheter was placed in his right internal jugular by Dr. Hanna the surgeon continuity coordinator. I discussed the risk and benefits of doing hemodialysis treatment. Patient did not express any objection and we proceeded with hemodialysis treatment for the first time. Past Medical History Cardiac Medical History: Reports: Hypertension-primary Pulmonary Medical History: Reports: Chronic Obstructive Pulmonary Disease (COPD) Renal/ Medical History: Reports: Chronic Kidney Disease Stage V, Hyperkalemia Musculoskeltal Medical History: Reports: Gout Psychiatric Medical History: Reports: Substance Abuse - Cocaine from history from the emergency room Past Surgical History Past Surgical History: Reports: None Social History Information Source: Patient Lives with: Alone Smoking Status: Former Smoker Frequency of Alcohol Use: None Hx Recreational Drug Use: Yes Drugs: Cocaine - Per emergency room notes however the patient denies it today Hx Prescription Drug Abuse: Yes - Advance Directive Resuscitation Status: Full Code Family History Family History: Hypertension Parental Family History Reviewed: Yes Children Family History Reviewed: Yes Sibling(s) Family History Reviewed.: Yes Medication/Allergy Home Medications: Albuterol Sulfate [Ventolin Hfa] 1 - 2 puff IH Q4 PRN 03/19/15 Fluticasone/Salmeterol [Advair 250-50 Diskus 14 Dose/Diskus] 1 inh IH Q12H 03/19 Tiotropium [place] [Spiriva Handihaler 18 mcg/dose (30 Dose)] 1 cap IH DAILY 02/23 Amlodipine Besylate [Norvasc 10 mg Tablet] 10 mg PO DAILY #30 tablet 03/21/15 Clonidine HCl [Catapres 0.2 mg Tablet] 0.2 mg PO Q8 #90 tablet 03/21/15 Ferrous Sulfate [Feosol 325 mg Tablet] 325 mg PO BIDPCBS #60 tablet 03/21/15 Furosemide [Lasix 80 mg Tablet] 80 mg PO DAILY #30 tablet 03/21/15 Sodium Bicarbonate [Sodium Bicarbonate 650 mg Tablet] 650 mg PO Q12 #60 tablet 03/21/15 Allergies/Adverse Reactions: hydrochlorothiazide [Hydrochlorothiazide] Allergy (Verified 12/15/16 19:36) lisinopril [Lisinopril] Allergy (Verified 12/16/16 15:58) Angioneurotic Edema Review of Systems All systems: reviewed and no additional remarkable complaints except as stated Review of Systems: Constitutional: ABSENT: chills, fever(s), headache(s), weight gain, weight loss ; admits to fatigue Eyes: ABSENT: visual disturbances Ears: ABSENT: hearing changes Cardiovascular: ABSENT: chest pain, dyspnea on exertion, orthropnea, palpitations; initially denies shortness of breath but actually told one of the nurses that he was short of breath earlier, admits edema for 4 day Respiratory: ABSENT: cough, dyspnea, hemoptysis Gastrointestinal: ABSENT: abdominal pain, constipation, diarrhea, hematemesis, hematochezia, nausea, vomiting Genitourinary: ABSENT: dysuria, hematuria Musculoskeletal: ABSENT: joint swelling Integumentary: ABSENT: rash, wounds Neurological: [ABSENT: abnormal gait, abnormal speech, confusion, dizziness, focal weakness, numbness, syncope Psychiatric: ABSENT: anxiety, depression Endocrine:[ ABSENT: cold intolerance, heat intolerance, polydipsia, polyuria Hematologic/Lymphatic: ABSENT: easy bleeding, easy bruising, lymphadenopathy Physical Exam Vital Signs: Temp Pulse Resp BP Pulse Ox 97.7 F 76 12 170/107 H 97 12/16/16 11:46 12/16/16 14:38 12/16/16 14:38 12/16/16 14:38 12/16/16 14:38 Intake & Output 12/15/16 12/16/16 12/17/16 06:59 06:59 06:59 Intake Total 1401 600 Output Total 1000 4050 Balance 401 -3450 Weight 90.7 kg Vitals during dialysis this morning: Blood pressure 171/102, heart rate 72, blood flow rate of 250 mL/min, dialysate flow rate of 500 mL/min, patient currently on room air. Exam: General appearance: no acute distress, cooperative, well-developed, well- nourished, sleepy Head exam: PRESENT: atraumatic, normocephalic Eye exam: PRESENT: Conjunctiva pale, EOMI, PERRLA. ABSENT: conjunctival injection, scleral icterus Mouth exam: PRESENT: moist, neck supple, tongue midline Neck exam: PRESENT: full ROM. ABSENT: carotid bruit, JVD, lymphadenopathy, thyromegaly Respiratory exam: PRESENT: clear to auscultation bilaterally. ABSENT: rales, rhonchi, stridor, wheezes Cardiovascular exam: PRESENT: RRR, +S1, +S2. ABSENT: systolic murmur Pulses: PRESENT: normal radial pulses, normal dorsalis pedis pulses GI/Abdominal exam: PRESENT: normal bowel sounds, soft. ABSENT: guarding, mass, tenderness Rectal exam: deferred Extremities exam: PRESENT: full ROM. Grade 2/6 bilateral lower extremity pitting edema ABSENT: calf tenderness Musculoskeletal: PRESENT: full ROM. ABSENT: deformity Neurological exam: PRESENT: alert, Awake, Oriented to person, Oriented to place , Oriented to time, reflexes normal, CN II-XII grossly intact. ABSENT: motor sensory deficit Psychiatric exam: PRESENT: Slightly bland affect and seems not interested in communicating so well, normal mood. Answers questions by few phrases only ABSENT: homicidal ideation, suicidal ideation Skin exam: PRESENT: intact, dry, warm. ABSENT: rash Results Laboratory Results: 12/16/16 08:40 12/16/16 05:45 12/15/16 12/15/16 12/15/16 21:53 21:53 21:53 WBC RBC Hgb Hct MCV MCH MCHC RDW Plt Count Seg Neutrophils % Lymphocytes % Monocytes % Eosinophils % Basophils % Absolute Neutrophils Absolute Lymphocytes Absolute Monocytes Absolute Eosinophils Absolute Basophils Retic Count (auto) 2.64 Absolute Retic 0.054 Sodium Potassium Chloride Carbon Dioxide Anion Gap BUN Creatinine Est GFR ( Amer) Est GFR (Non-Af Amer) Glucose Calcium Magnesium 1.1 L* Iron 20.8 L TIBC 336 % Saturation 6 Ferritin 7.44 L Total Bilirubin AST ALT Alkaline Phosphatase Total Protein Albumin Vitamin B12 535.0 Folate 11.00 12/16/16 12/16/16 12/16/16 01:45 05:45 08:40 WBC RBC Hgb Hct MCV MCH MCHC RDW Plt Count Seg Neutrophils % Lymphocytes % Monocytes % Eosinophils % Basophils % Absolute Neutrophils Absolute Lymphocytes Absolute Monocytes Absolute Eosinophils Absolute Basophils Retic Count (auto) Absolute Retic Sodium 143.6 143.7 Potassium 6.0 H* 6.0 H* Chloride 115 H 112 H Carbon Dioxide 16 L 16 L Anion Gap 13 16 BUN 118 H 118 H Creatinine 15.06 H 14.66 H Est GFR ( Amer) 4 L 4 L Est GFR (Non-Af Amer) 3 L 3 L Glucose 67 L 111 H Calcium 7.9 L 8.1 L Magnesium 1.9 Iron TIBC % Saturation Ferritin Total Bilirubin 0.5 AST 17 ALT 40 Alkaline Phosphatase 105 Total Protein 5.6 L Albumin 2.9 L Vitamin B12 Folate 12/16/16 08:40 WBC 6.2 RBC 2.68 L Hgb 7.5 L Hct 23.1 L MCV 87 MCH 28.1 MCHC 32.5 RDW 18.1 H Plt Count 164 Seg Neutrophils % 74.9 Lymphocytes % 14.8 Monocytes % 9.7 Eosinophils % 0.3 Basophils % 0.3 Absolute Neutrophils 4.7 Absolute Lymphocytes 0.9 Absolute Monocytes 0.6 Absolute Eosinophils 0.0 Absolute Basophils 0.0 Retic Count (auto) Absolute Retic Sodium Potassium Chloride Carbon Dioxide Anion Gap BUN Creatinine Est GFR ( Amer) Est GFR (Non-Af Amer) Glucose Calcium Magnesium Iron TIBC % Saturation Ferritin Total Bilirubin AST ALT Alkaline Phosphatase Total Protein Albumin Vitamin B12 Folate 12/16/16 12/16/16 12/16/16 05:45 05:45 08:40 Creatine Kinase 823 H 809 H CK-MB (CK-2) 10.60 H Troponin I 0.341 12/16/16 08:40 Creatine Kinase CK-MB (CK-2) 10.90 H Troponin I 0.305 Impressions: Chest X-Ray 12/16/16 00:28 IMPRESSION: Adequate appearing right IJ line. Otherwise, stable. Assessment & Plan - Diagnosis (1) Acute uremia Is this a current diagnosis for this admission?: YesPlan: Patient has some encephalopathy, lower extremity edema, fatigue, and abnormal labs including hyperkalemia and severe anemia which requires emergency initiation of renal replacement therapy. After discussion of risks and benefits with patient, he agreed to proceed with hemodialysis treatment this morning. We did dialysis today for 2.5 hours, using the patient's trialysis, with one potassium bath during the first hour and then to potassium bath, blood flow rate of 150 mL per minute, dialysate flow rate of 100 mL per minute, ultrafiltration 3 L, no heparin and no Procrit during dialysis today since she is getting 4 units total of packed RBC blood transfusion. (2) End stage renal disease due to hypertension Is this a current diagnosis for this admission?: YesPlan: Patient will need chronic hemodialysis treatment moving forward. After the patient mental status improve, hopefully by tomorrow, I will discuss with him about planning for chronic hemodialysis treatment. Hopefully if he agrees with chronic hemodialysis treatment, we will need more permanent vascular access in the form of a PermCath for now. In preparation for chronic outpatient dialysis treatment, hepatitis panel is pending and we will do a PPD. He will also as maintenance planner to arrange outpatient hemodialysis treatment in [facility]. (3) Non-nephrotic range proteinuria Is this a current diagnosis for this admission?: Yes (5) Acute metabolic encephalopathy Is this a current diagnosis for this admission?: YesPlan: Due to the uremia and electrolyte abnormalities. (6) Hyperkalemia Is this a current diagnosis for this admission?: YesPlan: Patient was given initially with Kayexalate, IV Lasix, calcium gluconate, insulin with D50 50 yesterday. Today we did dialysis to resolve this. (7) Anemia in chronic kidney disease Qualifiers: Chronic kidney disease stage: stage 5, not on chronic dialysis Qualified Code(s): N18.5 - Chronic kidney disease, stage 5; D63.1 - Anemia in chronic kidney disease Is this a current diagnosis for this admission?: YesPlan: No evidence of any source of any bleeding. This is most likely secondary to anemia of chronic kidney disease which has been untreated for several years. Patient was transfused a total of 4 units of packed RBC. Ultrafiltration on today's dialysis should also improve patient's hemoglobin. Patient would need to be initiated on Procrit after today. (8) Iron deficiency anemia Qualifiers: Iron deficiency anemia type: unspecified iron deficiency Qualified Code(s): D50.9 - Iron deficiency anemia, unspecified Is this a current diagnosis for this admission?: YesPlan: Patient will be initiated on maintenance IV iron during dialysis treatment. (9) Secondary hyperparathyroidism (of renal origin) Is this a current diagnosis for this admission?: YesPlan: We will wait for the repeat PTH currently pending. Likely needs to start with treatment during dialysis. (10) Hypertensive emergency Is this a current diagnosis for this admission?: YesPlan: Patient is noncompliant with medications and has not been taking anything for unknown period of time. He is currently on nitro drip and the hospitalist service is managing this. I recommended the patient's blood pressure below word very slowly. Today systolic blood pressure of anywhere between 170-190s would be acceptable. In the next few days this can be lowered down slowly. (11) Metabolic acidosis Is this a current diagnosis for this admission?: YesPlan: This is improved with hemodialysis. (12) Elevated troponin Is this a current diagnosis for this admission?: Yes (13) Non-compliant behavior Is this a current diagnosis for this admission?: Yes (14) Cocaine abuse Is this a current diagnosis for this admission?: Yes - Notes Notes: Discussed with the emergency room provider Cecilia Gutierrez last night, Dr. Carter from the hospitalist service and the patient. - Time Time Spent: Greater than 70 Minutes
[2016-12-16] MEDS ORDERED: TUBERCULIN,PURIF.PROT.DERIV. 5 TU/0.1 ML TEST 1 ML VIAL ID ONE (17:00)
[2016-12-16 20:56] LABS: CREATINE KINASE MB 7.4 ng/mL (<4.55)
[2016-12-16 21:03] LABS: TROPONIN I 0.153 ng/mL
--- NOTE | 2016-12-17 05:40 | Physician Advisory Note ---
Physician Advisor ProgressNote .: Pursuant to the plan for [facility], I have reviewed the medical record for this patient. Physician Advisor Statement: Great documentation of HTN-ariel emerg. Please also consider documentin. "Acute __ type CHF" [systolic? ...] 2. "Acute metabolic acidosis due to ARF" 3. "Anemia of nutritional Fe defic" Thanks! CK
[2016-12-17] MEDS: HEPARIN SOD (PORCINE) 5,000 UNIT/ML 1 ML SYRINGE SUBCUT SCH ×3 (06:06→21:50)
[2016-12-17] MEDS: CLONIDINE HCL 0.2 MG TABLET PO SCH (06:08)
[2016-12-17] MEDS: DIAZEPAM 2 MG TABLET PO PRN (06:08)
[2016-12-17 07:17] LABS: ABSOLUTE EOSINOPHILS # (AUTO) 0.1 10^3/uL (0.0-0.6); ABSOLUTE LYMPHOCYTES (AUTO) 1.4 10^3/uL (0.5-4.7); ABSOLUTE MONOCYTES (AUTO) 0.7 10^3/uL (0.1-1.4); ABSOLUTE NEUT (AUTO) 3.6 10^3/uL (1.7-8.2); BASOPHILS % (AUTO) 0.5 % (0-2); EOSINOPHILS % (AUTO) 1.7 % (0-6); HEMATOCRIT 25.3 % (37.9-51.0); HEMOGLOBIN 8.5 g/dL (13.5-17.0); HGB HCT DIFFERENCE 0.2; LYMPHOCYTES % (AUTO) 23.9 % (13-45); MEAN CORPUSCULAR HEMOGLOBIN 28.3 pg (27.0-33.4); MEAN CORPUSCULAR HGB CONC 33.5 g/dL (32.0-36.0); MEAN CORPUSCULAR VOLUME 84 fl (80-97); RED CELL DISTRIBUTION WIDTH 17.8 % (11.5-14.0); SEGMENTED NEUTROPHILS % (AUTO) 61.9 % (42-78); WHITE BLOOD COUNT 5.9 10^3/uL (4.0-10.5)
[2016-12-17 07:27] LABS: ANION GAP 12 (5-19); BLOOD UREA NITROGEN 86 mg/dL (7-20); CALCIUM 7.9 mg/dL (8.4-10.2); CARBON DIOXIDE 22 mmol/L (22-30); CHLORIDE 105 mmol/L (98-107); CREATININE RESULT 10.65 mg/dL (0.52-1.25); GLUCOSE 81 mg/dL (75-110); PHOSPHORUS 7.4 mg/dL (2.5-4.5); POTASSIUM 5.2 mmol/L (3.6-5.0); SODIUM 139.4 mmol/L (137-145)
[2016-12-17] MEDS ORDERED: HYDRALAZINE HCL 50 MG TABLET PO ONE (07:30)
[2016-12-17] MEDS: ACETAMINOPHEN 325 MG TABLET PO PRN ×2 (07:52→19:57)
[2016-12-17] MEDS: AMLODIPINE BESYLATE 10 MG TABLET PO SCH (09:09)
[2016-12-17] MEDS: DOCUSATE SODIUM 100 MG CAPSULE PO SCH ×2 (09:09→17:03)
[2016-12-17] MEDS: ASPIRIN 325 MG TABLET PO SCH (09:10)
[2016-12-17] MEDS: FERROUS SULFATE 325 MG TABLET PO SCH ×2 (09:10→17:03)
[2016-12-17] MEDS: TIOTROPIUM BROMIDE DPI 5 CAP/KIT (18 MCG/CAP) IH SCH (09:10)
[2016-12-17] MEDS: FLUTICASONE/SALMETEROL DISKUS 250-50 MCG/DOSE IH SCH ×2 (09:10→21:50)
[2016-12-17] MEDS: HYDRALAZINE HCL 50 MG TABLET PO SCH ×2 (13:20→21:50)
[2016-12-17] MEDS: CLONIDINE HCL 0.1 MG TABLET PO SCH ×2 (13:20→21:50)
[2016-12-17] MEDS ORDERED: HYDRALAZINE HCL 50 MG TABLET PO SCH (14:00)
--- NOTE | 2016-12-17 17:42 | PDOC PROGRESS REPORT ---
Subjective Progress Note for:: 12/17/16 Subjective:: Resting comfortably when I see him. He denies any complaints at this time. Patient denies chest pain, nausea, vomiting, fever, chills. Physical Exam Vital Signs: Temp Pulse Resp BP Pulse Ox 98.3 F 75 14 186/105 H 98 12/17/16 04:00 12/16/16 19:00 12/17/16 06:00 12/17/16 05:51 12/17/16 06:00 Intake & Output 12/16/16 12/17/16 12/18/16 06:59 06:59 06:59 Intake Total 1401 3041 Output Total 1000 5325 Balance 401 -2284 Weight 90.7 kg 89.8 kg Exam: GENERAL: awake, alert, oriented x3; nad HEENT: Conjunctiva clear, nonicteric, moist mucous membranes, + JVD, midline trachea, right-sided dialysis catheter RESPIRATORY: rales bilateral bases CARDIAC: Regular rate and rhythm; +s4, +sm lsb ABDOMEN: Soft, nondistended, nontender, positive bowel sounds, no rebound, no guarding EXTREMETIES: No cyanosis, clubbing; 2+ pitting edema NEUROLOGIC: A+Ox3, CN grossly intact without deficits SKIN: No rash, wounds Results Laboratory Results: 12/17/16 06:00 12/16/16 12/16/16 12/16/16 08:40 08:40 14:30 WBC 6.2 5.6 RBC 2.68 L 3.11 L Hgb 7.5 L 8.6 L Hct 23.1 L 26.4 L MCV 87 85 MCH 28.1 27.8 MCHC 32.5 32.7 RDW 18.1 H 17.6 H Plt Count 164 159 Seg Neutrophils % 74.9 Lymphocytes % 14.8 Monocytes % 9.7 Eosinophils % 0.3 Basophils % 0.3 Absolute Neutrophils 4.7 Absolute Lymphocytes 0.9 Absolute Monocytes 0.6 Absolute Eosinophils 0.0 Absolute Basophils 0.0 Magnesium 1.9 12/17/16 06:00 WBC 5.9 RBC 3.00 L Hgb 8.5 L Hct 25.3 L MCV 84 MCH 28.3 MCHC 33.5 RDW 17.8 H Plt Count 156 Seg Neutrophils % 61.9 Lymphocytes % 23.9 Monocytes % 12.0 Eosinophils % 1.7 Basophils % 0.5 Absolute Neutrophils 3.6 Absolute Lymphocytes 1.4 Absolute Monocytes 0.7 Absolute Eosinophils 0.1 Absolute Basophils 0.0 Magnesium 12/16/16 12/16/16 12/16/16 05:45 05:45 08:40 Creatine Kinase 823 H 809 H CK-MB (CK-2) 10.60 H Troponin I 0.341 12/16/16 12/16/16 12/16/16 08:40 14:30 14:30 Creatine Kinase 704 H CK-MB (CK-2) 10.90 H 9.04 H Troponin I 0.305 0.191 12/16/16 12/16/16 20:10 20:10 Creatine Kinase 609 H CK-MB (CK-2) 7.40 H Troponin I 0.153 Impressions: Chest X-Ray 12/16/16 00:28 IMPRESSION: Adequate appearing right IJ line. Otherwise, stable. Assessment & Plan - Diagnosis (1) Acute on chronic renal failure Qualifiers: Chronic kidney disease stage: stage 5, not on chronic dialysis Is this a current diagnosis for this admission?: YesPlan: nonoliguric Patient with stage IV CKD who approximately 2 years ago was instructed that he likely would need dialysis, but refused at that time. Patient was lost to follow-up. Patient presented with acute congestive heart failure and concurrent worsening renal failure with a creatinine of 15 and hyperkalemia and metabolic acidosis. Patient has received emergent hemodialysis and we appreciate nephrology's input into this case. (2) Hypertensive emergency Is this a current diagnosis for this admission?: YesPlan: Patient off nitroglycerin drip. Blood pressure of 240/115 itially noted in the emergency department. Time, due to compliance concerns, will decrease clonidine and place patient on hydralazine 50 mg tid and Norvasc. (3) Metabolic acidosis Is this a current diagnosis for this admission?: YesPlan: Secondary to patient's underlying renal failure (4) Acute congestive heart failure Qualifiers: Congestive heart failure type: unspecified congestive heart failure type Qualified Code(s): I50.9 - Heart failure, unspecified Is this a current diagnosis for this admission?: YesPlan: still volume overloaded Pending echo. No beta-blockers secondary to cocaine use. No LIBERTY secondary to angioedema. Patient will likely be placed on ARB prior to discharge. (5) Elevated troponin Is this a current diagnosis for this admission?: YesPlan: Will likely secondary to hypertensive emergency, cocaine abuse, and symptomatic anemia. Cannot rule out coronary vasospasm. Continue aspirin. PRN nitroglycerin. No beta blockers at this time secondary to cocaine abuse. (6) Acute metabolic encephalopathy Is this a current diagnosis for this admission?: YesPlan: Secondary to uremia and cocaine intoxication. Improving. will continue to follow after each dialysis (7) Iron deficiency anemia Qualifiers: Iron deficiency anemia type: unspecified iron deficiency Qualified Code(s): D50.9 - Iron deficiency anemia, unspecified Is this a current diagnosis for this admission?: YesPlan: Patient is occult blood negative. This is a multifactorial anemia due to iron deficiency and anemia of chronic disease. Patient received 4 units of packed red blood cells on 12/16/16. Goal hemoglobin of 8 and no more than 11. (8) Anemia in chronic kidney disease Qualifiers: Chronic kidney disease stage: stage 5, not on chronic dialysis Qualified Code(s): N18.5 - Chronic kidney disease, stage 5; D63.1 - Anemia in chronic kidney disease Is this a current diagnosis for this admission?: YesPlan: Procrit by nephology after iron repletion (9) Cocaine abuse Is this a current diagnosis for this admission?: YesPlan: valium prn and consider zyprexa (10) Hyperkalemia Is this a current diagnosis for this admission?: YesPlan: Continue telemetry monitoring Improved - Time Time Spent with patient: 25-34 minutes Medications reviewed and adjusted accordingly: Yes Anticipated discharge: Home with Homehealth Within: within 48 hours
--- NOTE | 2016-12-17 18:56 | PDOC PROGRESS REPORT ---
Subjective Progress Note for:: 12/17/16 Subjective:: Patient is clinically looking better. He admits that he feels somewhat better although he does not really say much. His blood pressure is also improved. Overall he seems to be improved compared to yesterday. His 2 sons are at bedside when I entered the room today. Today I discussed with him our treatment plan considering that the patient is now at end-stage renal disease. I discussed with him that moving forward he would need to be in some kind of chronic renal replacement therapy. Discussed with him in- center hemodialysis, home hemodialysis and peritoneal dialysis. He is very interested in a home therapy options. I told him that we can she do home therapy once he is better overall. I plan to continue outpatient in center hemodialysis through a PermCath after discharge and after that he can choose what modality he wanted to do and arrange access placement for that modality. I explained to him that home renal replacement therapy options need some kind of training so he really we will need some time. He agreed to do so PermCath placement for continuation of in center hemodialysis and decide later of what modality for home renal replacement therapy he would want to do. He tells me that he lives with his friend so I asked him to make sure that his friend is willing to train with him if he chooses home hemodialysis and it is also better if his friend will train with him as well even if he chooses peritoneal dialysis. I also mention kidney transplant option but I specifically told him that he will only be considered for that if he is compliant with his medication and treatment, if his blood pressure is well controlled, and if he is drug-free. So at this time he will not be an candidate for that. Patient agreed to proceed with PermCath placement and he will be arranged for outpatient hemodialysis at [facility]. He son is at bedside seems to be very eager and enthusiastic and very concerned about their father. All questions answered. Physical Exam Vital Signs: Temp Pulse Resp BP Pulse Ox 97.7 F 85 16 183/94 H 98 12/17/16 16:00 12/17/16 16:00 12/17/16 17:00 12/17/16 16:51 12/17/16 17:00 Intake & Output 12/16/16 12/17/16 12/18/16 06:59 06:59 06:59 Intake Total 1401 3041 510 Output Total 1000 5325 1270 Balance 401 -3934 -760 Weight 90.7 kg 89.8 kg Exam: General appearance: PRESENT: no acute distress, cooperative, well-developed, well-nourished Head exam: PRESENT: atraumatic, normocephalic Eye exam: PRESENT: conjunctiva pale, PERRLA. ABSENT: scleral icterus Neck exam: ABSENT: JVD Respiratory exam: PRESENT: Diminished breath sounds. ABSENT: crackles, rales, rhonchi, unlabored, wheezes Cardiovascular exam: PRESENT: Regular rate rhythm -+S1, +S2. ABSENT: diastolic murmur, systolic murmur GI/Abdominal exam: PRESENT: normal bowel sounds, soft. ABSENT: guarding, mass, tenderness Extremities exam: Improved grade 1 bilateral lower extremity pitting edema Neurological exam: PRESENT: alert, awake, oriented to person, place and time. Skin exam: PRESENT: dry, warm, Results Laboratory Results: 12/17/16 06:00 12/17/16 06:00 12/17/16 12/17/16 06:00 06:00 WBC 5.9 RBC 3.00 L Hgb 8.5 L Hct 25.3 L MCV 84 MCH 28.3 MCHC 33.5 RDW 17.8 H Plt Count 156 Seg Neutrophils % 61.9 Lymphocytes % 23.9 Monocytes % 12.0 Eosinophils % 1.7 Basophils % 0.5 Absolute Neutrophils 3.6 Absolute Lymphocytes 1.4 Absolute Monocytes 0.7 Absolute Eosinophils 0.1 Absolute Basophils 0.0 Sodium 139.4 Potassium 5.2 H Chloride 105 Carbon Dioxide 22 Anion Gap 12 BUN 86 H Creatinine 10.65 H Est GFR ( Amer) 6 L Est GFR (Non-Af Amer) 5 L Glucose 81 Calcium 7.9 L Phosphorus 7.4 H 12/16/16 12/16/16 12/16/16 05:45 05:45 08:40 Creatine Kinase 823 H 809 H CK-MB (CK-2) 10.60 H Troponin I 0.341 12/16/16 12/16/16 12/16/16 08:40 14:30 14:30 Creatine Kinase 704 H CK-MB (CK-2) 10.90 H 9.04 H Troponin I 0.305 0.191 12/16/16 12/16/16 20:10 20:10 Creatine Kinase 609 H CK-MB (CK-2) 7.40 H Troponin I 0.153 Impressions: Chest X-Ray 12/16/16 00:28 IMPRESSION: Adequate appearing right IJ line. Otherwise, stable. Assessment & Plan - Diagnosis (1) Acute uremia Is this a current diagnosis for this admission?: YesPlan: Improved with acute hemodialysis treatment yesterday. Needs to continue hemodialysis treatment moving forward. (2) End stage renal disease due to hypertension Is this a current diagnosis for this admission?: YesPlan: As mentioned above different modalities for chronic renal replacement therapy since been explained and discussed with patient today. He is interested with home therapies to switch from after he is stable. For now he will continue in Center outpatient hemodialysis 3 times a week via PermCath upon discharge. We will ask for vascular surgery consult to put a PermCath. The maintenance planner is currently arranging outpatient hemodialysis at [facility]. Patient also applied for Medicaid. Once patient is a stable and everything is arranged and he can be discharged home. Next hemodialysis here in the hospital will be planned for tomorrow. Orders are written. Start Nephrocaps daily. (3) Non-nephrotic range proteinuria Is this a current diagnosis for this admission?: Yes (4) Hyperphosphatemia Is this a current diagnosis for this admission?: YesPlan: Start PhosLo 667 mg 2 capsules with meals. (5) Acute metabolic encephalopathy Is this a current diagnosis for this admission?: YesPlan: Improved mentation compared to yesterday. However the patient seems to be still a little bit withdrawn and has this disinterest look but this could just be his personality. (6) Hyperkalemia Is this a current diagnosis for this admission?: YesPlan: Improved. Patient needs to be on low potassium renal diet. (7) Anemia in chronic kidney disease Qualifiers: Chronic kidney disease stage: stage 5, not on chronic dialysis Qualified Code(s): N18.5 - Chronic kidney disease, stage 5; D63.1 - Anemia in chronic kidney disease Is this a current diagnosis for this admission?: YesPlan: Patient had 4 units packed RBC transfusion yesterday. He will continue to receive Procrit during dialysis treatment. (8) Iron deficiency anemia Qualifiers: Iron deficiency anemia type: unspecified iron deficiency Qualified Code(s): D50.9 - Iron deficiency anemia, unspecified Is this a current diagnosis for this admission?: YesPlan: Discontinue oral iron. We will give the patient IV Venofer during dialysis treatment. (9) Secondary hyperparathyroidism (of renal origin) Is this a current diagnosis for this admission?: YesPlan: PTH is very elevated at 2299. We will start IV Zemplar during dialysis treatment. (10) Hypertensive emergency Is this a current diagnosis for this admission?: YesPlan: Improving. Management per primary service. (11) Metabolic acidosis Is this a current diagnosis for this admission?: YesPlan: Resolved with dialysis. (12) Elevated troponin Is this a current diagnosis for this admission?: YesPlan: Improving. (13) Non-compliant behavior Is this a current diagnosis for this admission?: Yes (14) Cocaine abuse Is this a current diagnosis for this admission?: Yes - Time Time with patient: Greater than 35 minutes
--- NOTE | 2016-12-17 19:35 | XCELERA REPORT ---
[address] [address] Transthoracic Echocardiogram Report Name: YUDITH DRAKE JR Age: 56 yrs Gender: Male : 1960 Patient Status: Inpatient Patient Location: ICU\S\606\S\A Study Date: 12/17/2016 08:12 AM Height: 74 in Weight: 197 lb BSA: 2.2 m2 Procedure: A complete two-dimensional transthoracic echocardiogram was performed (2D, M-mode, spectral and color flow Doppler). The study was technically adequate with some images being suboptimal in quality. Reason For Study: chf Ordering Physician: SOMMER CARTER Performed By: Ruth Noel Interpretation Summary The left ventricular ejection fraction is normal. Doppler measurements suggest pseudonormalized left ventricular relaxation, which is associated with grade II/IV or mild to moderate diastolic dysfunction There is moderate concentric left ventricular hypertrophy. The left ventricle is grossly normal size. No regional wall motion abnormalities noted. The right ventricle is mildly dilated. The right ventricular systolic function is normal. The right atrium is mildly dilated. The left atrium is mildly dilated. There is a trace to mild amount of mitral regurgitation There is no mitral valve stenosis. There is a trace amount of aortic regurgitation There is no aortic valve stenosis There is a mild amount of tricuspid regurgitation There is mild to moderate pulmonary hypertension by echo Right ventricular systolic pressure is estimated to be elevated at 40- 50mmHg. The aortic root is not well visualized but is probably normal size. The inferior vena cava appeared normal and decreased > 50% with respiration (RAP 5-10 mmHg) There is no pericardial effusion. MMode/2D Measurements \T\ Calculations RVDd: 3.8 cm LVIDd: 5.4 cm FS: 38.5 % Ao root diam: 3.0 cm IVSd: 1.7 cm LVIDs: 3.3 cm EDV(Teich): 141.8 ml LVPWd: 1.6 cm ESV(Teich): 45.0 ml Ao root area: 7.2 cm2 EF(Teich): 68.3 % LA dimension: 4.3 cm Doppler Measurements \T\ Calculations MV E max natalie: MV P1/2t max natalie: Ao V2 max: LV V1 max P.9 cm/sec 85.4 cm/sec 174.6 cm/sec 8.7 mmHg MV A max natalie: MV P1/2t: 71.4 msec Ao max PG: LV V1 max: 100.7 cm/sec 12.2 mmHg 147.6 cm/sec MV E/A: 0.85 MVA(P1/2t): 3.1 cm2 MV dec slope: 350.5 cm/sec2 MV dec time: 0.24 sec PA V2 max: TR max natalie: 110.6 cm/sec 313.6 cm/sec PA max P.9 mmHgTR max P.4 mmHg Left Ventricle The left ventricle is grossly normal size. There is moderate concentric left ventricular hypertrophy. The left ventricular ejection fraction is normal. Doppler measurements suggest pseudonormalized left ventricular relaxation, which is associated with grade II/IV or mild to moderate diastolic dysfunction. No regional wall motion abnormalities noted. Right Ventricle The right ventricle is mildly dilated. There is normal right ventricular wall thickness. The right ventricular systolic function is normal. Atria The right atrium is mildly dilated. The left atrium is mildly dilated. A patent foramen ovale is present. Mitral Valve The mitral valve is grossly normal. There is no mitral valve stenosis. There is a trace to mild amount of mitral regurgitation. Aortic Valve The aortic valve is grossly normal. There is no aortic valve stenosis. There is a trace amount of aortic regurgitation. Tricuspid Valve The tricuspid valve is not well visualized, but is grossly normal. There is no tricuspid stenosis. There is a mild amount of tricuspid regurgitation. There is mild to moderate pulmonary hypertension by echo. Right ventricular systolic pressure is estimated to be elevated at 40-50mmHg. Pulmonic Valve The pulmonic valve is not well visualized. Great Vessels The aortic root is not well visualized but is probably normal size. The inferior vena cava appeared normal and decreased > 50% with respiration (RAP 5-10 mmHg). Effusions There is no pericardial effusion. : SOMMER CARTER > Jacques Godoy
[2016-12-18 04:58] LABS: ABSOLUTE EOSINOPHILS # (AUTO) 0.1 10^3/uL (0.0-0.6); ABSOLUTE LYMPHOCYTES (AUTO) 1.4 10^3/uL (0.5-4.7); ABSOLUTE MONOCYTES (AUTO) 0.7 10^3/uL (0.1-1.4); ABSOLUTE NEUT (AUTO) 3.6 10^3/uL (1.7-8.2); BASOPHILS % (AUTO) 0.5 % (0-2); EOSINOPHILS % (AUTO) 1.8 % (0-6); HEMATOCRIT 26.8 % (37.9-51.0); HEMOGLOBIN 8.9 g/dL (13.5-17.0); HGB HCT DIFFERENCE -0.1; LYMPHOCYTES % (AUTO) 24.3 % (13-45); MEAN CORPUSCULAR HEMOGLOBIN 28.1 pg (27.0-33.4); MEAN CORPUSCULAR HGB CONC 33.1 g/dL (32.0-36.0); MEAN CORPUSCULAR VOLUME 85 fl (80-97); MONOCYTES % (AUTO) 12.3 % (3-13); RED BLOOD COUNT 3.15 10^6/uL (4.35-5.55); RED CELL DISTRIBUTION WIDTH 17.8 % (11.5-14.0); SEGMENTED NEUTROPHILS % (AUTO) 61.1 % (42-78); WHITE BLOOD COUNT 5.9 10^3/uL (4.0-10.5)
[2016-12-18 05:25] LABS: ANION GAP 13 (5-19); BLOOD UREA NITROGEN 90 mg/dL (7-20); CALCIUM 7.8 mg/dL (8.4-10.2); CARBON DIOXIDE 19 mmol/L (22-30); CHLORIDE 106 mmol/L (98-107); CREATININE RESULT 11.18 mg/dL (0.52-1.25); GLUCOSE 75 mg/dL (75-110); PHOSPHORUS 8.1 mg/dL (2.5-4.5); POTASSIUM 5.7 mmol/L (3.6-5.0); SODIUM 137.7 mmol/L (137-145)
[2016-12-18] MEDS: CLONIDINE HCL 0.1 MG TABLET PO SCH ×3 (06:08→21:51)
[2016-12-18] MEDS: HYDRALAZINE HCL 50 MG TABLET PO SCH ×3 (06:12→21:51)
[2016-12-18] MEDS: HEPARIN SOD (PORCINE) 5,000 UNIT/ML 1 ML SYRINGE SUBCUT SCH ×3 (06:13→21:51)
[2016-12-18] MEDS ORDERED: HEPARIN SOD (PORCINE) 1,000 UNIT/ML 10 ML VIAL IV PRN (07:19)
[2016-12-18] MEDS ORDERED: EPOETIN ALFA INJ 20000 UNIT/1 ML VIAL (RENAL) IV PRN (07:20)
[2016-12-18] MEDS ORDERED: PARICALCITOL INJ/PF 5 MCG/1 ML SDV IV PRN (07:21)
[2016-12-18] MEDS ORDERED: IRON SUCROSE COMPLEX INJ/PF 100 MG/5 ML SDV IV PRN (07:22)
[2016-12-18] MEDS: ASPIRIN 325 MG TABLET PO SCH (11:53)
[2016-12-18] MEDS: AMLODIPINE BESYLATE 10 MG TABLET PO SCH (11:53)
[2016-12-18] MEDS: DOCUSATE SODIUM 100 MG CAPSULE PO SCH ×2 (11:54→17:29)
[2016-12-18] MEDS: CALCIUM ACETATE 667 MG CAPSULE PO SCH ×3 (11:54→17:28)
[2016-12-18] MEDS: DIAZEPAM 2 MG TABLET PO PRN ×2 (11:57→19:53)
[2016-12-18] MEDS: ACETAMINOPHEN 325 MG TABLET PO PRN (11:57)
[2016-12-18] MEDS ORDERED: NITROGLYCERIN 0.4 MG/TAB 25 TAB/BOTTLE SL PRN (13:41)
--- NOTE | 2016-12-18 13:52 | PDOC PROGRESS REPORT ---
Subjective Progress Note for:: 12/18/16 Subjective:: Eating lunch when I see him. He denies any complaints at this time. Patient denies chest pain, nausea, vomiting, fever, chills, diarrhea, constipation, new onset weakness. He reports his breathing is improving. Swelling is improving but still present Physical Exam Vital Signs: Temp Pulse Resp BP Pulse Ox 98.8 F 77 20 167/86 H 99 12/18/16 03:09 12/18/16 03:09 12/18/16 03:09 12/18/16 03:09 12/18/16 03:09 Intake & Output 12/17/16 12/18/16 12/19/16 06:59 06:59 06:59 Intake Total 3041 938 Output Total 5325 1445 Balance -2284 -507 Weight 89.8 kg 88.6 kg Exam: GENERAL: awake, alert, oriented x3; nad HEENT: Conjunctiva clear, nonicteric, moist mucous membranes, + JVD, midline trachea, right-sided dialysis catheter RESPIRATORY: rales bilateral bases CARDIAC: Regular rate and rhythm; +s4, +sm lsb ABDOMEN: Soft, nondistended, nontender, positive bowel sounds, no rebound, no guarding EXTREMETIES: No cyanosis, clubbing; 2+ pitting edema NEUROLOGIC: A+Ox3, CN grossly intact except right eye exotropia (chronic) SKIN: No rash, wounds Results Laboratory Results: 12/18/16 03:46 12/18/16 03:46 12/17/16 12/17/16 12/18/16 06:00 06:00 03:46 WBC 5.9 5.9 RBC 3.00 L 3.15 L Hgb 8.5 L 8.9 L Hct 25.3 L 26.8 L MCV 84 85 MCH 28.3 28.1 MCHC 33.5 33.1 RDW 17.8 H 17.8 H Plt Count 156 161 Seg Neutrophils % 61.9 61.1 Lymphocytes % 23.9 24.3 Monocytes % 12.0 12.3 Eosinophils % 1.7 1.8 Basophils % 0.5 0.5 Absolute Neutrophils 3.6 3.6 Absolute Lymphocytes 1.4 1.4 Absolute Monocytes 0.7 0.7 Absolute Eosinophils 0.1 0.1 Absolute Basophils 0.0 0.0 Sodium 139.4 Potassium 5.2 H Chloride 105 Carbon Dioxide 22 Anion Gap 12 BUN 86 H Creatinine 10.65 H Est GFR ( Amer) 6 L Est GFR (Non-Af Amer) 5 L Glucose 81 Calcium 7.9 L Phosphorus 7.4 H 12/18/16 03:46 WBC RBC Hgb Hct MCV MCH MCHC RDW Plt Count Seg Neutrophils % Lymphocytes % Monocytes % Eosinophils % Basophils % Absolute Neutrophils Absolute Lymphocytes Absolute Monocytes Absolute Eosinophils Absolute Basophils Sodium 137.7 Potassium 5.7 H Chloride 106 Carbon Dioxide 19 L Anion Gap 13 BUN 90 H Creatinine 11.18 H Est GFR ( Amer) 6 L Est GFR (Non-Af Amer) 5 L Glucose 75 Calcium 7.8 L Phosphorus 8.1 H 12/16/16 12/16/16 12/16/16 05:45 05:45 08:40 Creatine Kinase 823 H 809 H CK-MB (CK-2) 10.60 H Troponin I 0.341 12/16/16 12/16/16 12/16/16 08:40 14:30 14:30 Creatine Kinase 704 H CK-MB (CK-2) 10.90 H 9.04 H Troponin I 0.305 0.191 12/16/16 12/16/16 20:10 20:10 Creatine Kinase 609 H CK-MB (CK-2) 7.40 H Troponin I 0.153 Impressions: Chest X-Ray 12/16/16 00:28 IMPRESSION: Adequate appearing right IJ line. Otherwise, stable. Assessment & Plan - Diagnosis (1) Acute on chronic renal failure Qualifiers: Chronic kidney disease stage: stage 4 (severe) Is this a current diagnosis for this admission?: YesPlan: Nonoliguric Patient with stage IV CKD who approximately 2 years ago was instructed that he likely would need dialysis, but refused at that time. Patient was lost to follow-up. Patient presented with acute congestive heart failure and concurrent worsening renal failure with a creatinine of 15 and hyperkalemia and metabolic acidosis. Patient has received emergent hemodialysis and we appreciate nephrology's input into this case. We will need dialysis center placement in consultation for permanent catheter. (2) Hypertensive emergency Is this a current diagnosis for this admission?: YesPlan: Blood pressure of 240/115 initially noted in the emergency department on . Time, due to compliance concerns, will decrease clonidine and increase hydralazine 100 mg tid. Continue Norvasc and would like to add ARB if approved by nephro for his diastolic dysfunction. (3) Metabolic acidosis Is this a current diagnosis for this admission?: YesPlan: Secondary to patient's underlying renal failure (4) Acute congestive heart failure Qualifiers: Congestive heart failure type: unspecified congestive heart failure type Qualified Code(s): I50.9 - Heart failure, unspecified Is this a current diagnosis for this admission?: YesPlan: volume overloaded Echo Done on 12/17/16 reveals normal EF and grade 2 diastolic dysfunction, moderate concentric LVH, moderate pulmonary hypertension. No beta-blockers secondary to cocaine use. No LIBERTY secondary to angioedema. Patient will likely be placed on ARB prior to discharge. (5) Elevated troponin Is this a current diagnosis for this admission?: YesPlan: Will likely secondary to hypertensive emergency, cocaine abuse, and symptomatic anemia. Cannot rule out coronary vasospasm. Continue aspirin. PRN nitroglycerin. No beta blockers at this time secondary to cocaine abuse. (6) Acute metabolic encephalopathy Is this a current diagnosis for this admission?: YesPlan: Secondary to uremia and cocaine intoxication. Improved (7) Iron deficiency anemia Qualifiers: Iron deficiency anemia type: unspecified iron deficiency Qualified Code(s): D50.9 - Iron deficiency anemia, unspecified Is this a current diagnosis for this admission?: YesPlan: Patient is occult blood negative. This is a multifactorial anemia due to iron deficiency and anemia of chronic disease. Patient received 4 units of packed red blood cells on 12/16/16. Goal hemoglobin of 8 and no more than 11. (8) Anemia in chronic kidney disease Qualifiers: Chronic kidney disease stage: stage 5, not on chronic dialysis Qualified Code(s): N18.5 - Chronic kidney disease, stage 5; D63.1 - Anemia in chronic kidney disease Is this a current diagnosis for this admission?: YesPlan: Procrit by nephology after iron repletion (9) Cocaine abuse Is this a current diagnosis for this admission?: YesPlan: valium prn and consider zyprexa (10) Hyperkalemia Is this a current diagnosis for this admission?: YesPlan: Continue telemetry monitoring Currently 5.7. - Time Time Spent with patient: 25-34 minutes Medications reviewed and adjusted accordingly: Yes
[2016-12-18] MEDS: FLUTICASONE/SALMETEROL DISKUS 250-50 MCG/DOSE IH SCH ×2 (16:30→21:52)
[2016-12-18] MEDS: TIOTROPIUM BROMIDE DPI 5 CAP/KIT (18 MCG/CAP) IH SCH (16:30)
--- NOTE | 2016-12-18 16:55 | PDOC PROGRESS REPORT ---
Subjective Progress Note for:: 12/18/16 Subjective:: I saw the patient during dialysis this morning at around 8:25 AM. He is lying in bed comfortably during dialysis and has been pretty stable. He denies any shortness of breathing no any other complaints. I informed him that he will have a PermCath placed by Dr. Arizmendi on Wednesday. After that if [facility] has accepted him at that time and he probably can be discharged on a Wednesday. Physical Exam Vital Signs: Temp Pulse Resp BP Pulse Ox 97.9 F 84 18 163/91 H 95 12/18/16 15:23 12/18/16 15:23 12/18/16 15:23 12/18/16 15:23 12/18/16 15:23 Intake & Output 12/17/16 12/18/16 12/19/16 06:59 06:59 06:59 Intake Total 3041 938 469 Output Total 5325 1445 3440 Balance -2289 -507 -5581 Weight 89.8 kg 88.6 kg Vital signs during dialysis when I saw him this morning: Blood pressure 154/91, heart rate of 70, blood flow rate 300 mL/min, dialysate flow rate 500 mL/min. Exam: General appearance: PRESENT: no acute distress, cooperative, well-developed, well-nourished Head exam: PRESENT: atraumatic, normocephalic Eye exam: PRESENT: conjunctiva pale, PERRLA. ABSENT: scleral icterus Neck exam: ABSENT: JVD Respiratory exam: PRESENT: Diminished breath sounds. ABSENT: crackles, rales, rhonchi, unlabored, wheezes Cardiovascular exam: PRESENT: Regular rate rhythm -+S1, +S2. ABSENT: diastolic murmur, systolic murmur GI/Abdominal exam: PRESENT: normal bowel sounds, soft. ABSENT: guarding, mass, tenderness Extremities exam: Improved and decreased grade 1 bilateral lower extremity pitting edema Neurological exam: PRESENT: alert, awake, oriented to person, place and time. Skin exam: PRESENT: dry, warm, Results Laboratory Results: 12/18/16 03:46 12/18/16 03:46 12/18/16 12/18/16 03:46 03:46 WBC 5.9 RBC 3.15 L Hgb 8.9 L Hct 26.8 L MCV 85 MCH 28.1 MCHC 33.1 RDW 17.8 H Plt Count 161 Seg Neutrophils % 61.1 Lymphocytes % 24.3 Monocytes % 12.3 Eosinophils % 1.8 Basophils % 0.5 Absolute Neutrophils 3.6 Absolute Lymphocytes 1.4 Absolute Monocytes 0.7 Absolute Eosinophils 0.1 Absolute Basophils 0.0 Sodium 137.7 Potassium 5.7 H Chloride 106 Carbon Dioxide 19 L Anion Gap 13 BUN 90 H Creatinine 11.18 H Est GFR ( Amer) 6 L Est GFR (Non-Af Amer) 5 L Glucose 75 Calcium 7.8 L Phosphorus 8.1 H 12/16/16 12/16/16 12/16/16 05:45 05:45 08:40 Creatine Kinase 823 H 809 H CK-MB (CK-2) 10.60 H Troponin I 0.341 12/16/16 12/16/16 12/16/16 08:40 14:30 14:30 Creatine Kinase 704 H CK-MB (CK-2) 10.90 H 9.04 H Troponin I 0.305 0.191 12/16/16 12/16/16 20:10 20:10 Creatine Kinase 609 H CK-MB (CK-2) 7.40 H Troponin I 0.153 Impressions: Chest X-Ray 12/16/16 00:28 IMPRESSION: Adequate appearing right IJ line. Otherwise, stable. Assessment & Plan - Diagnosis (1) Acute uremia Is this a current diagnosis for this admission?: YesPlan: Improved with acute hemodialysis treatment. Needs to continue hemodialysis treatment moving forward. (2) End stage renal disease due to hypertension Is this a current diagnosis for this admission?: YesPlan: Different modalities for chronic renal replacement therapy since been explained and discussed with patient . He is interested with home therapies to switch from after he is stable. For now he will continue in Center outpatient hemodialysis 3 times a week via PermCath upon discharge. We will ask for vascular surgery consult to put a PermCath. The capacity planner is currently arranging outpatient hemodialysis at [facility]. Patient also applied for Medicaid. Once patient is a stable and everything is arranged and he can be discharged home. Next hemodialysis here in the hospital will be planned for Wednesday. PermCath will be placed with Dr. Arizmendi on Wednesday. (3) Non-nephrotic range proteinuria Is this a current diagnosis for this admission?: Yes (4) Hyperphosphatemia Is this a current diagnosis for this admission?: YesPlan: Start PhosLo 667 mg 2 capsules with meals. (5) Acute metabolic encephalopathy Is this a current diagnosis for this admission?: YesPlan: Patient is probably in his baseline mental status. However the patient seems to be still a little bit withdrawn and has this disinterest look but this could just be his personality. (6) Hyperkalemia Is this a current diagnosis for this admission?: YesPlan: Improved. Patient needs to be on low potassium renal diet. (7) Anemia in chronic kidney disease Qualifiers: Chronic kidney disease stage: stage 5, not on chronic dialysis Qualified Code(s): N18.5 - Chronic kidney disease, stage 5; D63.1 - Anemia in chronic kidney disease Is this a current diagnosis for this admission?: YesPlan: Patient had 4 units packed RBC transfusion yesterday. He will continue to receive Procrit during dialysis treatment. (8) Iron deficiency anemia Qualifiers: Iron deficiency anemia type: unspecified iron deficiency Qualified Code(s): D50.9 - Iron deficiency anemia, unspecified Is this a current diagnosis for this admission?: YesPlan: Discontinue oral iron. We will give the patient IV Venofer during dialysis treatment. (9) Secondary hyperparathyroidism (of renal origin) Is this a current diagnosis for this admission?: YesPlan: PTH is very elevated at 2299. We will start IV Zemplar during dialysis treatment. (10) Hypertensive emergency Is this a current diagnosis for this admission?: YesPlan: Improving. Management per primary service. (11) Metabolic acidosis Is this a current diagnosis for this admission?: YesPlan: Resolved with dialysis. (12) Elevated troponin Is this a current diagnosis for this admission?: YesPlan: Improving. (13) Non-compliant behavior Is this a current diagnosis for this admission?: Yes (14) Cocaine abuse Is this a current diagnosis for this admission?: Yes - Time Time with patient: 15-25 minutes
[2016-12-18] MEDS: IPRATROPIUM/ALBUTEROL 0.5-2.5 MG/3 ML AMPUL NEB PRN (20:13)
[2016-12-19 04:18] LABS: ABSOLUTE EOSINOPHILS # (AUTO) 0.1 10^3/uL (0.0-0.6); ABSOLUTE LYMPHOCYTES (AUTO) 1.5 10^3/uL (0.5-4.7); ABSOLUTE MONOCYTES (AUTO) 0.8 10^3/uL (0.1-1.4); ABSOLUTE NEUT (AUTO) 3.7 10^3/uL (1.7-8.2); BASOPHILS % (AUTO) 0.7 % (0-2); EOSINOPHILS % (AUTO) 1.3 % (0-6); HEMATOCRIT 27.1 % (37.9-51.0); HEMOGLOBIN 8.8 g/dL (13.5-17.0); HGB HCT DIFFERENCE -0.7; LYMPHOCYTES % (AUTO) 24.6 % (13-45); MEAN CORPUSCULAR HEMOGLOBIN 27.9 pg (27.0-33.4); MEAN CORPUSCULAR HGB CONC 32.4 g/dL (32.0-36.0); MEAN CORPUSCULAR VOLUME 86 fl (80-97); MONOCYTES % (AUTO) 13.5 % (3-13); RED BLOOD COUNT 3.15 10^6/uL (4.35-5.55); RED CELL DISTRIBUTION WIDTH 18.1 % (11.5-14.0); SEGMENTED NEUTROPHILS % (AUTO) 59.9 % (42-78); WHITE BLOOD COUNT 6.2 10^3/uL (4.0-10.5)
[2016-12-19 04:32] LABS: ANION GAP 9 (5-19); BLOOD UREA NITROGEN 65 mg/dL (7-20); CALCIUM 8.3 mg/dL (8.4-10.2); CARBON DIOXIDE 23 mmol/L (22-30); CHLORIDE 103 mmol/L (98-107); CREATININE RESULT 8.78 mg/dL (0.52-1.25); GLUCOSE 93 mg/dL (75-110); SODIUM 135.2 mmol/L (137-145)
[2016-12-19 04:36] LABS: POTASSIUM 5.3 mmol/L (3.6-5.0)
[2016-12-19] MEDS: CLONIDINE HCL 0.1 MG TABLET PO SCH ×3 (07:14→22:08)
[2016-12-19] MEDS: HYDRALAZINE HCL 50 MG TABLET PO SCH ×3 (07:14→22:07)
[2016-12-19] MEDS: HEPARIN SOD (PORCINE) 5,000 UNIT/ML 1 ML SYRINGE SUBCUT SCH ×3 (07:15→22:07)
[2016-12-19] MEDS: IPRATROPIUM/ALBUTEROL 0.5-2.5 MG/3 ML AMPUL NEB PRN (07:43)
[2016-12-19] MEDS: CALCIUM ACETATE 667 MG CAPSULE PO SCH ×3 (08:24→17:01)
[2016-12-19] MEDS: FLUTICASONE/SALMETEROL DISKUS 250-50 MCG/DOSE IH SCH ×2 (08:25→22:09)
[2016-12-19] MEDS: ASPIRIN 325 MG TABLET PO SCH (08:25)
[2016-12-19] MEDS: DOCUSATE SODIUM 100 MG CAPSULE PO SCH ×2 (08:25→17:01)
[2016-12-19] MEDS: AMLODIPINE BESYLATE 10 MG TABLET PO SCH (08:25)
[2016-12-19] MEDS: TIOTROPIUM BROMIDE DPI 5 CAP/KIT (18 MCG/CAP) IH SCH (08:25)
--- NOTE | 2016-12-19 15:39 | PDOC PROGRESS REPORT ---
Subjective Progress Note for:: 12/19/16 Subjective:: He denies any complaints at this time. Patient denies chest pain, nausea, vomiting, fever, chills, diarrhea, constipation, new onset weakness. He reports his breathing is improving. Physical Exam Vital Signs: Temp Pulse Resp BP Pulse Ox 98.6 F 79 18 152/62 H 99 12/19/16 03:17 12/19/16 03:17 12/19/16 03:17 12/19/16 03:17 12/19/16 03:17 Intake & Output 12/18/16 12/19/16 12/20/16 06:59 06:59 06:59 Intake Total 938 1653 Output Total 1445 3440 Balance -507 -1787 Weight 88.6 kg 88.2 kg Exam: GENERAL: awake, alert, oriented x3; nad HEENT: Conjunctiva clear, nonicteric, moist mucous membranes, + JVD, midline trachea, right-sided dialysis catheter RESPIRATORY: rales bilateral bases CARDIAC: Regular rate and rhythm; +sm lsb ABDOMEN: Soft, nondistended, nontender, positive bowel sounds, no rebound, no guarding EXTREMETIES: No cyanosis, clubbing; 2+ pitting edema NEUROLOGIC: A+Ox3, CN grossly intact except right eye exotropia (chronic) SKIN: No rash, wounds Results Laboratory Results: 12/19/16 03:51 12/19/16 03:51 12/19/16 12/19/16 03:51 03:51 WBC 6.2 RBC 3.15 L Hgb 8.8 L Hct 27.1 L MCV 86 MCH 27.9 MCHC 32.4 RDW 18.1 H Plt Count 149 L Seg Neutrophils % 59.9 Lymphocytes % 24.6 Monocytes % 13.5 H Eosinophils % 1.3 Basophils % 0.7 Absolute Neutrophils 3.7 Absolute Lymphocytes 1.5 Absolute Monocytes 0.8 Absolute Eosinophils 0.1 Absolute Basophils 0.0 Sodium 135.2 L Potassium 5.3 H Chloride 103 Carbon Dioxide 23 Anion Gap 9 BUN 65 H Creatinine 8.78 H Est GFR ( Amer) 8 L Est GFR (Non-Af Amer) 6 L Glucose 93 Calcium 8.3 L 12/16/16 12/16/16 12/16/16 05:45 05:45 08:40 Creatine Kinase 823 H 809 H CK-MB (CK-2) 10.60 H Troponin I 0.341 12/16/16 12/16/16 12/16/16 08:40 14:30 14:30 Creatine Kinase 704 H CK-MB (CK-2) 10.90 H 9.04 H Troponin I 0.305 0.191 12/16/16 12/16/16 20:10 20:10 Creatine Kinase 609 H CK-MB (CK-2) 7.40 H Troponin I 0.153 Impressions: Chest X-Ray 12/16/16 00:28 IMPRESSION: Adequate appearing right IJ line. Otherwise, stable. Assessment & Plan - Diagnosis (1) Acute on chronic renal failure Qualifiers: Chronic kidney disease stage: stage 4 (severe) Is this a current diagnosis for this admission?: YesPlan: Nonoliguric Patient with stage IV CKD who approximately 2 years ago was instructed that he likely would need dialysis, but refused at that time. Patient was lost to follow-up. Patient presented with acute congestive heart failure and concurrent worsening renal failure with a creatinine of 15 and hyperkalemia and metabolic acidosis. Patient has received emergent hemodialysis and we appreciate nephrology's input into this case. Permanent dialysis catheter placed on Wednesday by Dr. Arizmendi and has been accepted to [facility]. (2) Hypertensive emergency Is this a current diagnosis for this admission?: YesPlan: Blood pressure of 240/115 initially noted in the emergency department on . Improved on norvasc, hydralazine, and clonidine. Would like to add ARB if approved by nephro for his diastolic dysfunction. (3) Metabolic acidosis Is this a current diagnosis for this admission?: YesPlan: Secondary to patient's underlying renal failure (4) Acute congestive heart failure Qualifiers: Congestive heart failure type: unspecified congestive heart failure type Qualified Code(s): I50.9 - Heart failure, unspecified Is this a current diagnosis for this admission?: YesPlan: volume overloaded Echo Done on 12/17/16 reveals normal EF and grade 2 diastolic dysfunction, moderate concentric LVH, moderate pulmonary hypertension. No beta-blockers secondary to cocaine use. No LIBERTY secondary to angioedema. Patient will be placed on ARB prior to discharge. (5) Elevated troponin Is this a current diagnosis for this admission?: YesPlan: Will likely secondary to hypertensive emergency, cocaine abuse, and symptomatic anemia. Cannot rule out coronary vasospasm. Continue aspirin. PRN nitroglycerin. No beta blockers at this time secondary to cocaine abuse. (6) Acute metabolic encephalopathy Is this a current diagnosis for this admission?: YesPlan: Secondary to uremia and cocaine intoxication. Improved (7) Iron deficiency anemia Qualifiers: Iron deficiency anemia type: unspecified iron deficiency Qualified Code(s): D50.9 - Iron deficiency anemia, unspecified Is this a current diagnosis for this admission?: Yes (8) Anemia in chronic kidney disease Qualifiers: Chronic kidney disease stage: stage 5, not on chronic dialysis Qualified Code(s): N18.5 - Chronic kidney disease, stage 5; D63.1 - Anemia in chronic kidney disease Is this a current diagnosis for this admission?: Yes (9) Cocaine abuse Is this a current diagnosis for this admission?: Yes (10) Hyperkalemia Is this a current diagnosis for this admission?: Yes - Plan Summary Plan Summary: Currently pending permacath placement and ongoing dialysis. Currently continuing to titrate patient's blood pressure medications, with intermittent as needed dosing of IV hydralazine.
[2016-12-19] MEDS: ACETAMINOPHEN 325 MG TABLET PO PRN (17:03)
[2016-12-20] MEDS: CLONIDINE HCL 0.1 MG TABLET PO SCH ×3 (06:19→22:00)
[2016-12-20] MEDS: HEPARIN SOD (PORCINE) 5,000 UNIT/ML 1 ML SYRINGE SUBCUT SCH ×3 (06:20→21:57)
[2016-12-20] MEDS: HYDRALAZINE HCL 50 MG TABLET PO SCH ×3 (06:20→22:00)
[2016-12-20] MEDS: TIOTROPIUM BROMIDE DPI 5 CAP/KIT (18 MCG/CAP) IH SCH (10:11)
[2016-12-20] MEDS: FLUTICASONE/SALMETEROL DISKUS 250-50 MCG/DOSE IH SCH ×2 (10:11→22:00)
[2016-12-20] MEDS: CALCIUM ACETATE 667 MG CAPSULE PO SCH ×3 (10:11→17:17)
[2016-12-20] MEDS: ASPIRIN 325 MG TABLET PO SCH (10:11)
[2016-12-20] MEDS: DOCUSATE SODIUM 100 MG CAPSULE PO SCH ×2 (10:12→17:17)
[2016-12-20] MEDS: AMLODIPINE BESYLATE 10 MG TABLET PO SCH (10:12)
--- NOTE | 2016-12-20 11:18 | PDOC PROGRESS REPORT ---
Subjective Progress Note for:: 12/20/16 Subjective:: Patient does complain of some dyspnea on exertion, but denies PND. Admits to some orthopnea that is overall improving. Patient denies chest pain, nausea, vomiting, fever, chills, diarrhea, constipation, new onset weakness. Physical Exam Vital Signs: Temp Pulse Resp BP Pulse Ox 98.4 F 72 17 149/66 H 98 12/20/16 03:16 12/20/16 03:16 12/20/16 03:16 12/20/16 03:16 12/20/16 03:16 Intake & Output 12/19/16 12/20/16 12/21/16 06:59 06:59 06:59 Intake Total 1653 1449 Output Total 3440 Balance -1787 1449 Weight 88.2 kg 88 kg Exam: GENERAL: awake, alert, oriented x3; nad HEENT: Conjunctiva clear, nonicteric, moist mucous membranes, + JVD, midline trachea, right-sided dialysis catheter RESPIRATORY: rales bilateral bases CARDIAC: Regular rate and rhythm; +sm lsb ABDOMEN: Soft, nondistended, nontender, positive bowel sounds, no rebound, no guarding EXTREMETIES: No cyanosis, clubbing; 1+ pitting edema NEUROLOGIC: A+Ox3, CN grossly intact except right eye exotropia (chronic) SKIN: No rash, wounds Results Laboratory Results: 12/19/16 03:51 12/19/16 03:51 12/16/16 12/16/16 12/16/16 05:45 05:45 08:40 Creatine Kinase 823 H 809 H CK-MB (CK-2) 10.60 H Troponin I 0.341 12/16/16 12/16/16 12/16/16 08:40 14:30 14:30 Creatine Kinase 704 H CK-MB (CK-2) 10.90 H 9.04 H Troponin I 0.305 0.191 12/16/16 12/16/16 20:10 20:10 Creatine Kinase 609 H CK-MB (CK-2) 7.40 H Troponin I 0.153 Impressions: Chest X-Ray 12/16/16 00:28 IMPRESSION: Adequate appearing right IJ line. Otherwise, stable. Assessment & Plan - Diagnosis (1) Acute on chronic renal failure Qualifiers: Chronic kidney disease stage: stage 4 (severe) Is this a current diagnosis for this admission?: YesPlan: Nonoliguric Patient with stage IV CKD who approximately 2 years ago was instructed that he likely would need dialysis, but refused at that time. Patient was lost to follow-up. Patient presented with acute congestive heart failure and concurrent worsening renal failure with a creatinine of 15 and hyperkalemia and metabolic acidosis. Patient has received emergent hemodialysis and we appreciate nephrology's input into this case. Permanent dialysis catheter will be placed on Wednesday by Dr. Arizmendi and has been accepted to [facility]. (2) Hypertensive emergency Is this a current diagnosis for this admission?: YesPlan: Blood pressure of 240/115 initially noted in the emergency department on . Improved on norvasc, hydralazine, and clonidine. Would like to add ARB if approved by nephro for his diastolic dysfunction. Would also like to continue to wean clonidine in favor of Cozaar due to compliance concerns. (3) Metabolic acidosis Is this a current diagnosis for this admission?: YesPlan: Secondary to patient's underlying renal failure (4) Acute congestive heart failure Qualifiers: Congestive heart failure type: diastolic Qualified Code(s): I50.31 - Acute diastolic (congestive) heart failure Is this a current diagnosis for this admission?: YesPlan: Remains volume overloaded. Echo Done on 12/17/16 reveals normal EF and grade 2 diastolic dysfunction, moderate concentric LVH, moderate pulmonary hypertension. No beta-blockers secondary to cocaine use. No LIBERTY secondary to angioedema. Patient will be placed on ARB prior to discharge. (5) Elevated troponin Is this a current diagnosis for this admission?: YesPlan: Will likely secondary to hypertensive emergency, cocaine abuse, and symptomatic anemia. Cannot rule out coronary vasospasm or CAD. Continue aspirin. PRN nitroglycerin. No beta blockers at this time secondary to cocaine abuse. (6) Acute metabolic encephalopathy Is this a current diagnosis for this admission?: YesPlan: Secondary to uremia and cocaine intoxication. Improved back to baseline (7) Iron deficiency anemia Qualifiers: Iron deficiency anemia type: unspecified iron deficiency Qualified Code(s): D50.9 - Iron deficiency anemia, unspecified Is this a current diagnosis for this admission?: YesPlan: Patient is occult blood negative. This is a multifactorial anemia due to iron deficiency and anemia of chronic disease. Patient received 4 units of packed red blood cells on 12/16/16. Goal hemoglobin of 8 and no more than 11. Patient will need a screening colonoscopy as an outpatient. (8) Anemia in chronic kidney disease Qualifiers: Chronic kidney disease stage: stage 5, not on chronic dialysis Qualified Code(s): N18.5 - Chronic kidney disease, stage 5; D63.1 - Anemia in chronic kidney disease Is this a current diagnosis for this admission?: YesPlan: Procrit by nephology after iron repletion (9) Cocaine abuse Is this a current diagnosis for this admission?: YesPlan: Patient has been advised to stop using cocaine. On valium prn (10) Hyperkalemia Is this a current diagnosis for this admission?: YesPlan: Continue telemetry monitoring Currently 5.3. Patient to have HD tomorrow. - Time Time Spent with patient: 25-34 minutes Medications reviewed and adjusted accordingly: Yes Anticipated discharge: Home Within: within 24 hours, within 48 hours - Inpatient Certification Based on my medical assessment, after consideration of the patient's comorbidities, presenting symptoms, or acuity I expect that the services needed warrant INPATIENT care.: Yes I certify that my determination is in accordance with my understanding of Medicare's requirements for reasonable and necessary INPATIENT services [42 CFR 412.3e].: Yes Medical Necessity: Need for Surgery Post Hospital Care: D/C [facility] Documentation
[2016-12-20] MEDS: IPRATROPIUM/ALBUTEROL 0.5-2.5 MG/3 ML AMPUL NEB PRN (11:37)
--- NOTE | 2016-12-20 14:47 | PDOC PROGRESS REPORT ---
Physical Exam Vital Signs: Temp Pulse Resp BP Pulse Ox 98.9 F 80 18 154/72 H 95 12/20/16 11:32 12/20/16 11:37 12/20/16 11:37 12/20/16 11:32 12/20/16 11:32 Intake & Output 12/19/16 12/20/16 12/21/16 06:59 06:59 06:59 Intake Total 1653 1449 473 Output Total 3440 Balance -1787 1449 473 Weight 88.2 kg 88 kg Additional comments: Constitutional: Well-developed well-nourished -[place]ron[place] gentleman. No apparent acute distress. Eyes: Mucous membranes pink and moist, pupils equal and reactive to light. Conjunctiva normal. Cornea normal. ENT: Hearing grossly normal. External pinna normal to inspection. Teeth intact. Tongue normal to inspection. Chest: Normal to inspection. Right-sided temporary hemodialysis catheter noted. Removed. Respiratory: Normal respiratory effort. Psychiatric: Judgment, memory, insight seem normal. Mood is pleasant and appropriate. Extremities: Upper extremities show normal range of movement. Pulses present noted to the radial arteries. Capillary refill normal. No cyanosis noted. No muscle wasting noted. Results Laboratory Results: 12/19/16 03:51 12/19/16 03:51 12/16/16 12/16/16 12/16/16 05:45 05:45 08:40 Creatine Kinase 823 H 809 H CK-MB (CK-2) 10.60 H Troponin I 0.341 12/16/16 12/16/16 12/16/16 08:40 14:30 14:30 Creatine Kinase 704 H CK-MB (CK-2) 10.90 H 9.04 H Troponin I 0.305 0.191 12/16/16 12/16/16 20:10 20:10 Creatine Kinase 609 H CK-MB (CK-2) 7.40 H Troponin I 0.153 Impressions: Chest X-Ray 12/16/16 00:28 IMPRESSION: Adequate appearing right IJ line. Otherwise, stable. Assessment & Plan - Diagnosis (1) End stage renal disease due to hypertension Is this a current diagnosis for this admission?: Yes (2) Hypertensive emergency Is this a current diagnosis for this admission?: Yes - Plan Summary Plan Summary: In this patient will need hemodialysis for end-stage renal disease, a right- sided temporary catheter has been placed. This cath was removed today so as to leave the options open. The plan will be considered permacatheter tomorrow. Eventually the patient may need a fistula. Above was discussed with the patient. He is somewhat apprehensive but is accepting of the need, the risks benefits and expected outcome.
[2016-12-20] MEDS: FOLIC ACID/VITAMIN B COMP W-C CAPSULE PO SCH (17:17)
[2016-12-21] MEDS: IPRATROPIUM/ALBUTEROL 0.5-2.5 MG/3 ML AMPUL NEB PRN ×2 (04:01→12:46)
[2016-12-21 04:58] LABS: ABSOLUTE EOSINOPHILS # (AUTO) 0.1 10^3/uL (0.0-0.6); ABSOLUTE LYMPHOCYTES (AUTO) 1.6 10^3/uL (0.5-4.7); ABSOLUTE MONOCYTES (AUTO) 0.9 10^3/uL (0.1-1.4); ABSOLUTE NEUT (AUTO) 3.9 10^3/uL (1.7-8.2); BASOPHILS % (AUTO) 0.4 % (0-2); EOSINOPHILS % (AUTO) 2.1 % (0-6); HEMATOCRIT 27.4 % (37.9-51.0); HEMOGLOBIN 8.6 g/dL (13.5-17.0); HGB HCT DIFFERENCE -1.6; MEAN CORPUSCULAR HEMOGLOBIN 27.7 pg (27.0-33.4); MEAN CORPUSCULAR HGB CONC 31.4 g/dL (32.0-36.0); MEAN CORPUSCULAR VOLUME 88 fl (80-97); MONOCYTES % (AUTO) 14.2 % (3-13); RED BLOOD COUNT 3.11 10^6/uL (4.35-5.55); RED CELL DISTRIBUTION WIDTH 18.5 % (11.5-14.0); SEGMENTED NEUTROPHILS % (AUTO) 59.3 % (42-78); WHITE BLOOD COUNT 6.5 10^3/uL (4.0-10.5)
[2016-12-21] MEDS ORDERED: IRON SUCROSE COMPLEX INJ/PF 100 MG/5 ML SDV IV PRN (05:00)
[2016-12-21] MEDS ORDERED: DIAZEPAM 5 MG TABLET PO PRN (05:00)
[2016-12-21] MEDS ORDERED: CEFAZOLIN 1 GM/D5W RTU 1 GM/50 ML RTUPB IV PRN ×2 (05:00)
[2016-12-21] MEDS ORDERED: PARICALCITOL INJ/PF 5 MCG/1 ML SDV IV PRN (05:00)
[2016-12-21] MEDS ORDERED: EPOETIN ALFA INJ 20000 UNIT/1 ML VIAL (RENAL) IV PRN (05:00)
[2016-12-21 05:15] LABS: ANION GAP 14 (5-19); BLOOD UREA NITROGEN 88 mg/dL (7-20); CALCIUM 8.4 mg/dL (8.4-10.2); CARBON DIOXIDE 18 mmol/L (22-30); CHLORIDE 106 mmol/L (98-107); CREATININE RESULT 10.41 mg/dL (0.52-1.25); GLUCOSE 76 mg/dL (75-110); SODIUM 137.8 mmol/L (137-145)
[2016-12-21 05:23] LABS: POTASSIUM 6.1 mmol/L (3.6-5.0)
[2016-12-21] MEDS: HEPARIN SOD (PORCINE) 5,000 UNIT/ML 1 ML SYRINGE SUBCUT SCH ×3 (05:37→21:10)
[2016-12-21] MEDS: CLONIDINE HCL 0.1 MG TABLET PO SCH (06:47)
[2016-12-21] MEDS: HYDRALAZINE HCL 50 MG TABLET PO SCH ×3 (06:47→21:10)
[2016-12-21] MEDS ORDERED: BACITRACIN INJ 50,000 UNIT VIAL IR PRN (08:03)
[2016-12-21] MEDS ORDERED: LIDOCAINE 0.5% INJ-PF (5 MG/ML) 50 ML SDV ONE (08:21)
[2016-12-21] MEDS: CALCIUM ACETATE 667 MG CAPSULE PO SCH ×3 (08:32→17:15)
[2016-12-21] MEDS ORDERED: INSULIN REG, HUMAN 100 UNIT/ML 3 ML VIAL (PYX) ONE (09:09)
[2016-12-21] MEDS ORDERED: DEXTROSE 50%-WATER 25 GM/50 ML DISP.SYRIN IV ONE (09:10)
[2016-12-21] MEDS ORDERED: CALCIUM GLUCONATE 1000 MG/10 ML INJ IV ONE (09:10)
[2016-12-21] MEDS ORDERED: SODIUM BICARBONATE 8.4% INJ 50 MEQ/50 ML DISP.SYRIN ONE (09:10)
[2016-12-21] MEDS: OXYCODONE-ACETAMINOPHEN 5-325 MG TABLET PO PRN ×2 (09:51→23:53)
[2016-12-21] MEDS: AMLODIPINE BESYLATE 10 MG TABLET PO SCH (09:51)
[2016-12-21] MEDS: TIOTROPIUM BROMIDE DPI 5 CAP/KIT (18 MCG/CAP) IH SCH (09:54)
[2016-12-21] MEDS: FLUTICASONE/SALMETEROL DISKUS 250-50 MCG/DOSE IH SCH ×2 (09:55→21:16)
[2016-12-21] MEDS: DOCUSATE SODIUM 100 MG CAPSULE PO SCH ×2 (10:02→17:38)
[2016-12-21] MEDS: ASPIRIN 325 MG TABLET PO SCH (10:02)
[2016-12-21] MEDS ORDERED: MIDAZOLAM 2 MG/2 ML INJ ONE (10:33)
[2016-12-21] MEDS ORDERED: FENTANYL CITRATE INJ/PF 100 MCG/2 ML AMPUL ONE (10:33)
[2016-12-21] MEDS ORDERED: CEFAZOLIN INJ 1 GM VIAL ONE (10:50)
[2016-12-21] MEDS: ACETAMINOPHEN 325 MG TABLET PO PRN ×2 (13:02→21:11)
--- NOTE | 2016-12-21 13:03 | Operative Report ---
Operative Report DATE OF SURGERY: 12/21/16 PREOPERATIVE DIAGNOSIS: 1. End-stage renal disease on hemodialysis. 2. Hypertension POSTOPERATIVE DIAGNOSIS: 1. End-stage renal disease on hemodialysis. Post insertion of the catheter. 2. Hypertension OPERATION: 1. Ultrasound evaluation of the left internal jugular vein. 2. Insertion of PermCath catheter via real-time axis in the left internal jugular vein. 3. Angiogram and interpretation. SURGEON: ISABELLA ROJAS BRIDGE TEACHER: None ANESTHESIA: Moderate Sedation TISSUE REMOVED OR ALTERED: Not applicable. COMPLICATIONS: None ESTIMATED BLOOD LOSS: 5 mL. INTRAOPERATIVE FINDINGS: Of a satisfactory edema large left internal jugular vein easily 2 cm in diameter. Satisfactory support permacatheter. Permacatheter down in the mid right atrium. Flow through the heart is unusually slow suggestive of myocardial dysfunction. Easy egress of blood and ingress of heparinized solution through both ports. Procedure well-tolerated. PROCEDURE: After obtaining informed consent, the patient was taken to the Repair Service Clerk and positioned supine. The left neck and chest were prepared with chlorhexidine and draped out with sterile linen. After the " universal timeout", in which it was verified that the patient continued to receive antibiotic, the procedure commenced. A steriley sheathed ultrasound probe was used to evaluate the left internal jugular vein. Local anesthesia was infiltrated adjacent to the probe. Access into the left internal jugular vein was obtained using a micropuncture needle, followed by micropuncture wire and then a micropuncture catheter. This was followed by introduction of a 0.035 guidewire the tip of which was placed down into the inferior vena cava . The port sites was marked , locally anesthetized and incision made. Dissection now proceeded to the deep subcutaneous subcutaneous tissues so that a pocket for the port was made. Meticulous hemostasis was secured and the catheter was tunneled between the 2 incisions. Proximally, the catheter was now positioned using a peel-away sheath. Distally the catheter was tailored to an appropriate length and then mated to the port using the contained fixating device. The port was now placed in the pocket and the catheter optimally positioned. The port was accessed with a Connelly needle and an angiogram done under digital subtraction. The findings as dictated. With adequate and satisfactory positioning, both lumens of the chamber were irrigated with heparinized solution. The wounds were now closed using interrupted 3-0 PDS to the subcutaneous tissues and a continuous subcuticular suture of 4-0 Monocryl to the skin. These are reinforced with Steri-Strips over benzoin and then dressings applied. Time: 0.7 minute. Dose: 0.919 Gy Contrast: 10 mls. Isovue 300. Copies of the dictated operative report for Dr. Isabella Arizmendi MD.
--- NOTE | 2016-12-21 13:06 | RADIOLOGY REPORT (SQ) ---
EXAM DESCRIPTION: CHEST SINGLE VIEW COMPLETED DATE/TIME: 12/21/2016 12:21 pm REASON FOR STUDY: s/p perm catheter placement COMPARISON: 12/16/2016 EXAM PARAMETERS: NUMBER OF VIEWS: One view. TECHNIQUE: Single frontal radiographic view of the chest acquired. RADIATION DOSE: NA LIMITATIONS: None. FINDINGS: LUNGS AND PLEURA: No opacities, masses or pneumothorax. No pleural effusion. Small nodula r density is identified in left lung base most consistent with a nipple shadow. This was not present on the previous study. MEDIASTINUM AND HILAR STRUCTURES: Again there is some prominence of the superior mediastinum presumab ly related to tortuous brachiocephalic vessels. HEART AND VASCULAR STRUCTURES: The configuration of the heart and mediastinal structures is unchanged . BONES: No acute findings. HARDWARE: Central line is identified with its tip at the level of the junction of right atrium and soliz perior vena cava. OTHER: No other significant finding. IMPRESSION: Left-sided central line with its tip at the approximate junction of SVC and right atrium .. No pneumothorax is seen. Other findings as noted above TECHNICAL DOCUMENTATION: JOB ID: [id number]
[2016-12-21] MEDS ORDERED: HEPARIN SOD (PORCINE) 1,000 UNIT/ML 10 ML VIAL IV PRN (14:15)
--- NOTE | 2016-12-21 14:46 | RADIOLOGY REPORT (SQ) ---
EXAM DESCRIPTION: TUNNELED CENTRAL LINE; GUIDANCE ULTRASOUND; GUIDANCE FLUOROSCOPIC COMPLETED DATE/TIME: 12/21/2016 1:09 pm REASON FOR STUDY: NEED FOR VASCULAR ACCESS COMPARISON: None. FLUOROSCOPY TIME: 0.7 minutes. 2 images saved to PACS. TECHNIQUE: Intra-operative images acquired during surgical procedure to evaluate progress. NUMBER OF IMAGES: 2 images. LIMITATIONS: None. FINDINGS: Images of the chest acquired during procedure. IMPRESSION: IMAGE(S) OBTAINED DURING PROCEDURE. COMMENT: Quality ID [id number]: Final reports for procedures using fluoroscopy that document radiation exp osure indices, or exposure time and number of fluorographic images (if radiation exposure indices are not available) Please consult full operative report of the attending physician for description of the procedure. TECHNICAL DOCUMENTATION: JOB ID: [id number] [employer]- All Rights Reserved
--- NOTE | 2016-12-21 14:46 | RADIOLOGY REPORT (SQ) ---
EXAM DESCRIPTION: TUNNELED CENTRAL LINE; GUIDANCE ULTRASOUND; GUIDANCE FLUOROSCOPIC COMPLETED DATE/TIME: 12/21/2016 1:09 pm REASON FOR STUDY: NEED FOR VASCULAR ACCESS COMPARISON: None. FLUOROSCOPY TIME: 0.7 minutes. 2 images saved to PACS. TECHNIQUE: Intra-operative images acquired during surgical procedure to evaluate progress. NUMBER OF IMAGES: 2 images. LIMITATIONS: None. FINDINGS: Images of the chest acquired during procedure. IMPRESSION: IMAGE(S) OBTAINED DURING PROCEDURE. COMMENT: Quality ID [id number]: Final reports for procedures using fluoroscopy that document radiation exp osure indices, or exposure time and number of fluorographic images (if radiation exposure indices are not available) Please consult full operative report of the attending physician for description of the procedure. TECHNICAL DOCUMENTATION: JOB ID: [id number] [employer]- All Rights Reserved
--- NOTE | 2016-12-21 14:46 | RADIOLOGY REPORT (SQ) ---
EXAM DESCRIPTION: TUNNELED CENTRAL LINE; GUIDANCE ULTRASOUND; GUIDANCE FLUOROSCOPIC COMPLETED DATE/TIME: 12/21/2016 1:09 pm REASON FOR STUDY: NEED FOR VASCULAR ACCESS COMPARISON: None. FLUOROSCOPY TIME: 0.7 minutes. 2 images saved to PACS. TECHNIQUE: Intra-operative images acquired during surgical procedure to evaluate progress. NUMBER OF IMAGES: 2 images. LIMITATIONS: None. FINDINGS: Images of the chest acquired during procedure. IMPRESSION: IMAGE(S) OBTAINED DURING PROCEDURE. COMMENT: Quality ID 145: Final reports for procedures using fluoroscopy that document radiation exp osure indices, or exposure time and number of fluorographic images (if radiation exposure indices are not available) Please consult full operative report of the attending physician for description of the procedure. TECHNICAL DOCUMENTATION: JOB ID: [id number] [employer]- All Rights Reserved
[2016-12-21] MEDS ORDERED: OXYCODONE-ACETAMINOPHEN 5-325 MG TABLET PO PRN (16:37)
[2016-12-21] MEDS ORDERED: OXYCODONE-ACETAMINOPHEN 5-325 MG TABLET PO ONE (17:00)
[2016-12-21] MEDS: FOLIC ACID/VITAMIN B COMP W-C CAPSULE PO SCH (17:15)
--- NOTE | 2016-12-21 19:49 | PDOC PROGRESS REPORT ---
Subjective Progress Note for:: 12/21/16 Subjective:: Patient on dialysis at around 1:30 PM earlier. Patient is doing much better. His mental status has improved and seems to be at baseline, communicating very well, and answering questions more appropriately. His blood pressure was improved to an acceptable level considering his initial presenting blood pressure. Patient underwent PermCath placement this morning care of Dr. Arizmendi and that was uneventful. Patient was n.p.o. and was a little bit upset that he did not have any food before dialysis so that probably made his blood pressure a little bit high during dialysis earlier. Nevertheless the patient is tolerating dialysis very well and he does not really have any complaints. His breathing is much better in his edema is almost resolved. Physical Exam Vital Signs: Temp Pulse Resp BP Pulse Ox 97.5 F 91 16 173/82 H 96 12/21/16 11:53 12/21/16 17:53 12/21/16 17:53 12/21/16 11:53 12/21/16 12:46 Intake & Output 12/20/16 12/21/16 12/22/16 06:59 06:59 06:59 Intake Total 1449 1273 18 Output Total 4100 Balance 1449 1273 -4082 Weight 88 kg 86.4 kg Vitals signs during dialysis when I saw him: Blood pressure 206/77, heart rate of 74, blood flow rate of 300 mL/min to his newly placed PermCath and dialysate flow rate of 500 mL/min. Exam: General appearance: PRESENT: no acute distress, cooperative, well-developed, well-nourished Head exam: PRESENT: atraumatic, normocephalic Eye exam: PRESENT: conjunctiva pale, PERRLA. ABSENT: scleral icterus Neck exam: ABSENT: JVD Respiratory exam: PRESENT: Diminished breath sounds. He has mild rhonchi ABSENT : crackles, rales, unlabored, wheezes Cardiovascular exam: PRESENT: Regular rate rhythm -+S1, +S2. ABSENT: diastolic murmur, systolic murmur GI/Abdominal exam: PRESENT: normal bowel sounds, soft. ABSENT: guarding, mass, tenderness Extremities exam: ABSENT: No edema Neurological exam: PRESENT: alert, awake, oriented to person, place and time. Skin exam: PRESENT: dry, warm, Results Laboratory Results: 12/21/16 03:33 12/21/16 03:33 12/21/16 12/21/16 03:33 03:33 WBC 6.5 RBC 3.11 L Hgb 8.6 L Hct 27.4 L MCV 88 MCH 27.7 MCHC 31.4 L RDW 18.5 H Plt Count 158 Seg Neutrophils % 59.3 Lymphocytes % 24.0 Monocytes % 14.2 H Eosinophils % 2.1 Basophils % 0.4 Absolute Neutrophils 3.9 Absolute Lymphocytes 1.6 Absolute Monocytes 0.9 Absolute Eosinophils 0.1 Absolute Basophils 0.0 Sodium 137.8 Potassium 6.1 H* Chloride 106 Carbon Dioxide 18 L Anion Gap 14 BUN 88 H Creatinine 10.41 H Est GFR ( Amer) 6 L Est GFR (Non-Af Amer) 5 L Glucose 76 Calcium 8.4 12/16/16 12/16/16 12/16/16 05:45 05:45 08:40 Creatine Kinase 823 H 809 H CK-MB (CK-2) 10.60 H Troponin I 0.341 12/16/16 12/16/16 12/16/16 08:40 14:30 14:30 Creatine Kinase 704 H CK-MB (CK-2) 10.90 H 9.04 H Troponin I 0.305 0.191 12/16/16 12/16/16 20:10 20:10 Creatine Kinase 609 H CK-MB (CK-2) 7.40 H Troponin I 0.153 Impressions: Central Venous Line 12/21/16 00:00 IMPRESSION: IMAGE(S) OBTAINED DURING PROCEDURE. Guidance Fluoroscopy 12/21/16 00:00 IMPRESSION: IMAGE(S) OBTAINED DURING PROCEDURE. Guidance Ultrasound 12/21/16 00:00 IMPRESSION: IMAGE(S) OBTAINED DURING PROCEDURE. Chest X-Ray 12/21/16 12:30 IMPRESSION: Left-sided central line with its tip at the approximate junction of SVC and right atrium.. No pneumothorax is seen. Other findings as noted above Assessment & Plan - Diagnosis (1) Acute uremia Is this a current diagnosis for this admission?: YesPlan: Improved and now resolved with acute hemodialysis treatment. Needs to continue hemodialysis treatment moving forward. (2) End stage renal disease due to hypertension Is this a current diagnosis for this admission?: YesPlan: Different modalities for chronic renal replacement therapy since been explained and discussed with patient . He is interested with home therapies to switch from after he is stable. For now he will continue in-Center outpatient hemodialysis 3 times a week via PermCath upon discharge. We did dialysis today for 3 hours, using the patient's PermCath, with one potassium bath for the first hour and then successively two potassium bath, blood flow rate of 300 mL per minute, dialysate flow rate of 500 mL per minute, ultrafiltration 4 L, no heparin due to thrombocytopenia and Procrit with 20,000 units during dialysis intravenously. Patient tolerated dialysis well. Patient is already accepted at [facility] as a chronic dialysis patient. From nephrology standpoint I think he can be discharged home tomorrow if everything else is okay. He will need to be at [facility] on Wednesday at 1 PM to do paperwork and subsequently he will have his next dialysis treatment there at 2:15 PM. I discussed with the patient and explained what he needed to do if discharged tomorrow. Patient understood and tells me that he will be there. Further plan of switching to home dialysis therapy will be done at [facility]. Patient to continue all current medications that we started here in the hospital including his antihypertensives, PhosLo, and Nephrocaps. We will continue the same medications were giving here during dialysis treatment. I will follow the patient at [facility]. Patient verbalized understanding of the plan and agreed. (3) Non-nephrotic range proteinuria Is this a current diagnosis for this admission?: Yes (4) Hyperphosphatemia Is this a current diagnosis for this admission?: YesPlan: Start PhosLo 667 mg 2 capsules with meals. (5) Acute metabolic encephalopathy Is this a current diagnosis for this admission?: YesPlan: Resolved. Patient is probably in his baseline mental status. (6) Hyperkalemia Is this a current diagnosis for this admission?: YesPlan: Improved. Patient needs to be on low potassium renal diet. Emphasized this to the patient. Our dietitian at [facility] will further discuss renal diet when he gets there. (7) Anemia in chronic kidney disease Qualifiers: Chronic kidney disease stage: stage 5, not on chronic dialysis Qualified Code(s): N18.5 - Chronic kidney disease, stage 5; D63.1 - Anemia in chronic kidney disease Is this a current diagnosis for this admission?: YesPlan: Patient had 4 units packed RBC transfusion on admission. He will continue to receive Procrit during dialysis treatment. (8) Iron deficiency anemia Qualifiers: Iron deficiency anemia type: unspecified iron deficiency Qualified Code(s): D50.9 - Iron deficiency anemia, unspecified Is this a current diagnosis for this admission?: YesPlan: Discontinue oral iron. We will give the patient IV Venofer during dialysis treatment. (9) Secondary hyperparathyroidism (of renal origin) Is this a current diagnosis for this admission?: YesPlan: PTH is very elevated at 2299. We will start IV Zemplar during dialysis treatment. (10) Hypertensive emergency Is this a current diagnosis for this admission?: YesPlan: Improving. Management per primary service. (11) Metabolic acidosis Is this a current diagnosis for this admission?: YesPlan: Resolved with dialysis. (12) Elevated troponin Is this a current diagnosis for this admission?: YesPlan: Improving. (13) Non-compliant behavior Is this a current diagnosis for this admission?: Yes (14) Cocaine abuse Is this a current diagnosis for this admission?: Yes - Notes Notes: From [facility] patient can be safely discharged home tomorrow. Dialysis will be at [facility] on Wednesday as is stated above and discussed with patient. - Time Time with patient: 15-25 minutes
--- NOTE | 2016-12-21 19:52 | PDOC PROGRESS REPORT ---
Subjective Progress Note for:: 12/21/16 Subjective:: Patient does complain at the insertion site of his PermCath. Patient denies chest pain, nausea, vomiting, fever, chills, diarrhea, constipation, new onset weakness. Physical Exam Vital Signs: Temp Pulse Resp BP Pulse Ox 97.5 F 91 16 173/82 H 96 12/21/16 11:53 12/21/16 17:53 12/21/16 17:53 12/21/16 11:53 12/21/16 12:46 Intake & Output 12/20/16 12/21/16 12/22/16 06:59 06:59 06:59 Intake Total 1449 1273 18 Output Total 4100 Balance 1449 1273 -4082 Weight 88 kg 86.4 kg Exam: ENERAL: awake, alert, oriented x3; nad HEENT: Conjunctiva clear, nonicteric, moist mucous membranes,no JVD, midline trachea, left-sided dialysis catheter RESPIRATORY: Auscultation bilaterally CARDIAC: Regular rate and rhythm; +sm lsb ABDOMEN: Soft, nondistended, nontender, positive bowel sounds, no rebound, no guarding EXTREMETIES: No cyanosis, clubbing; trace edema NEUROLOGIC: A+Ox3, CN grossly intact except right eye exotropia (chronic) SKIN: No rash, wounds Results Laboratory Results: 12/21/16 03:33 12/21/16 03:33 12/21/16 12/21/16 03:33 03:33 WBC 6.5 RBC 3.11 L Hgb 8.6 L Hct 27.4 L MCV 88 MCH 27.7 MCHC 31.4 L RDW 18.5 H Plt Count 158 Seg Neutrophils % 59.3 Lymphocytes % 24.0 Monocytes % 14.2 H Eosinophils % 2.1 Basophils % 0.4 Absolute Neutrophils 3.9 Absolute Lymphocytes 1.6 Absolute Monocytes 0.9 Absolute Eosinophils 0.1 Absolute Basophils 0.0 Sodium 137.8 Potassium 6.1 H* Chloride 106 Carbon Dioxide 18 L Anion Gap 14 BUN 88 H Creatinine 10.41 H Est GFR ( Amer) 6 L Est GFR (Non-Af Amer) 5 L Glucose 76 Calcium 8.4 12/16/16 12/16/16 12/16/16 05:45 05:45 08:40 Creatine Kinase 823 H 809 H CK-MB (CK-2) 10.60 H Troponin I 0.341 12/16/16 12/16/16 12/16/16 08:40 14:30 14:30 Creatine Kinase 704 H CK-MB (CK-2) 10.90 H 9.04 H Troponin I 0.305 0.191 12/16/16 12/16/16 20:10 20:10 Creatine Kinase 609 H CK-MB (CK-2) 7.40 H Troponin I 0.153 Impressions: Central Venous Line 12/21/16 00:00 IMPRESSION: IMAGE(S) OBTAINED DURING PROCEDURE. Guidance Fluoroscopy 12/21/16 00:00 IMPRESSION: IMAGE(S) OBTAINED DURING PROCEDURE. Guidance Ultrasound 12/21/16 00:00 IMPRESSION: IMAGE(S) OBTAINED DURING PROCEDURE. Chest X-Ray 12/21/16 12:30 IMPRESSION: Left-sided central line with its tip at the approximate junction of SVC and right atrium.. No pneumothorax is seen. Other findings as noted above Assessment & Plan - Diagnosis (1) Acute on chronic renal failure Qualifiers: Chronic kidney disease stage: stage 4 (severe) Is this a current diagnosis for this admission?: YesPlan: Nonoliguric Patient with stage IV CKD who approximately 2 years ago was instructed that he likely would need dialysis, but refused at that time. Patient was lost to follow-up. Patient presented with acute congestive heart failure and concurrent worsening renal failure with a creatinine of 15 and hyperkalemia and metabolic acidosis. Patient has received emergent hemodialysis and we appreciate nephrology's input into this case. Permanent dialysis catheter placed on 12/21/[address] Arizmendi and has been accepted to [facility]. (2) Hypertensive emergency Is this a current diagnosis for this admission?: YesPlan: Blood pressure of 240/115 initially noted in the emergency department on . Improved on norvasc, hydralazine, cozaar, and clonidine. Would like to add ARB if approved by nephro for his diastolic dysfunction. Would also like to continue to wean clonidine in favor of Cozaar due to compliance concerns. Decrease clonidine to twice daily. (3) Metabolic acidosis Is this a current diagnosis for this admission?: YesPlan: Secondary to patient's underlying renal failure (4) Acute congestive heart failure Qualifiers: Congestive heart failure type: diastolic Qualified Code(s): I50.31 - Acute diastolic (congestive) heart failure Is this a current diagnosis for this admission?: YesPlan: Remains volume overloaded. Echo Done on 12/17/16 reveals normal EF and grade 2 diastolic dysfunction, moderate concentric LVH, moderate pulmonary hypertension. No beta-blockers secondary to cocaine use. No LIBERTY secondary to angioedema. Patient is on Cozaar. (5) Elevated troponin Is this a current diagnosis for this admission?: YesPlan: Will likely secondary to hypertensive emergency, cocaine abuse, and symptomatic anemia. Cannot rule out coronary vasospasm or CAD. Continue aspirin. PRN nitroglycerin. No beta blockers at this time secondary to cocaine abuse. (6) Acute metabolic encephalopathy Is this a current diagnosis for this admission?: YesPlan: Secondary to uremia and cocaine intoxication. Improved back to baseline (7) Iron deficiency anemia Qualifiers: Iron deficiency anemia type: unspecified iron deficiency Qualified Code(s): D50.9 - Iron deficiency anemia, unspecified Is this a current diagnosis for this admission?: Yes (8) Anemia in chronic kidney disease Qualifiers: Chronic kidney disease stage: stage 5, not on chronic dialysis Qualified Code(s): N18.5 - Chronic kidney disease, stage 5; D63.1 - Anemia in chronic kidney disease Is this a current diagnosis for this admission?: Yes (9) Cocaine abuse Is this a current diagnosis for this admission?: Yes (10) Hyperkalemia Is this a current diagnosis for this admission?: Yes - Time Time Spent with patient: 25-34 minutes Medications reviewed and adjusted accordingly: Yes Anticipated discharge: Home Within: within 24 hours, within 48 hours
[2016-12-21] MEDS: LOSARTAN POTASSIUM 25 MG TABLET PO SCH (21:11)
[2016-12-21] MEDS ORDERED: CLONIDINE HCL 0.1 MG TABLET PO SCH (22:00)
[2016-12-22 05:33] LABS: ABSOLUTE EOSINOPHILS # (AUTO) 0.1 10^3/uL (0.0-0.6); ABSOLUTE LYMPHOCYTES (AUTO) 0.9 10^3/uL (0.5-4.7); ABSOLUTE MONOCYTES (AUTO) 1.1 10^3/uL (0.1-1.4); ABSOLUTE NEUT (AUTO) 5.7 10^3/uL (1.7-8.2); BASOPHILS % (AUTO) 0.4 % (0-2); EOSINOPHILS % (AUTO) 0.8 % (0-6); HEMATOCRIT 28.7 % (37.9-51.0); HEMOGLOBIN 9.2 g/dL (13.5-17.0); HGB HCT DIFFERENCE -1.1; LYMPHOCYTES % (AUTO) 11.6 % (13-45); MEAN CORPUSCULAR HEMOGLOBIN 28.3 pg (27.0-33.4); MEAN CORPUSCULAR HGB CONC 32.2 g/dL (32.0-36.0); MEAN CORPUSCULAR VOLUME 88 fl (80-97); MONOCYTES % (AUTO) 13.6 % (3-13); RED BLOOD COUNT 3.26 10^6/uL (4.35-5.55); SEGMENTED NEUTROPHILS % (AUTO) 73.6 % (42-78); WHITE BLOOD COUNT 7.7 10^3/uL (4.0-10.5)
[2016-12-22] MEDS: HEPARIN SOD (PORCINE) 5,000 UNIT/ML 1 ML SYRINGE SUBCUT SCH (05:42)
[2016-12-22] MEDS: HYDRALAZINE HCL 50 MG TABLET PO SCH (05:43)
[2016-12-22 05:47] LABS: ANION GAP 11 (5-19); BLOOD UREA NITROGEN 69 mg/dL (7-20); CALCIUM 8.6 mg/dL (8.4-10.2); CARBON DIOXIDE 24 mmol/L (22-30); CHLORIDE 102 mmol/L (98-107); CREATININE RESULT 9.61 mg/dL (0.52-1.25); GLUCOSE 82 mg/dL (75-110); MAGNESIUM 1.4 mg/dL (1.6-2.3); PHOSPHORUS 5.7 mg/dL (2.5-4.5); SODIUM 137.3 mmol/L (137-145)
[2016-12-22 06:15] LABS: POTASSIUM 5.4 mmol/L (3.6-5.0)
[2016-12-22] MEDS: CALCIUM ACETATE 667 MG CAPSULE PO SCH (08:02)
[2016-12-22] MEDS: TIOTROPIUM BROMIDE DPI 5 CAP/KIT (18 MCG/CAP) IH SCH (09:46)
[2016-12-22] MEDS: LOSARTAN POTASSIUM 25 MG TABLET PO SCH (09:47)
[2016-12-22] MEDS: AMLODIPINE BESYLATE 10 MG TABLET PO SCH (09:47)
[2016-12-22] MEDS: FLUTICASONE/SALMETEROL DISKUS 250-50 MCG/DOSE IH SCH (09:47)
[2016-12-22] MEDS: ASPIRIN 325 MG TABLET PO SCH (09:47)
[2016-12-22] MEDS ORDERED: CLONIDINE HCL 0.2 MG TABLET PO SCH (10:00)
[2016-12-22] MEDS: DOCUSATE SODIUM 100 MG CAPSULE PO SCH (10:05)
[2016-12-22 10:44] VITALS: BP 143/66
--- NOTE | 2016-12-22 16:46 | PDOC DISCHARGE SUMMARY ---
General - Admit/Disc Date/PCP Admission Date/Primary Care Provider: 12/15/16 21:48 Discharge Date: 12/22/16 - Discharge Diagnosis (1) Acute congestive heart failure Is this a current diagnosis for this admission?: Yes (2) Acute on chronic renal failure Is this a current diagnosis for this admission?: Yes (3) Cocaine abuse Is this a current diagnosis for this admission?: Yes (4) Hyperkalemia Is this a current diagnosis for this admission?: Yes (5) Hypertensive emergency Is this a current diagnosis for this admission?: Yes - Additional Information Resuscitation Status: Full Code Discharge Diet: Other (Comments) - dialysis Discharge Activity: Activity As Tolerated, Balance Activity w/Rest, Weigh Daily Home Medications: Amlodipine Besylate [Norvasc 10 mg Tablet] 10 mg PO DAILY #30 tablet 12/22/16 Aspirin [Aspirin 325 mg Tablet] 325 mg PO DAILY tablet 12/22/16 Calcium Acetate [Phoslo 667 mg Capsule] 1,334 mg PO MEALS #180 capsule 12/22/16 Clonidine HCl [Catapres 0.2 mg Tablet] 0.2 mg PO Q12 #60 tablet 12/22/16 Folic Acid/Vitamin B Comp W-C [Nephrocaps Multiple Vitamin Capsule] 1 cap PO ACSUPPER #30 capsule 12/22/16 Hydralazine HCl [Apresoline 50 mg Tablet] 100 mg PO Q8 #180 tablet 12/22/16 Losartan Potassium [Cozaar 25 mg Tablet] 25 mg PO Q12 #60 tablet 12/22/16 History of Present Illness Patient complains of: Shortness of breath History of Present Illness: YUDITH DRAKE JR is a 56 year old male with history of hypertension, stage IV chronic kidney disease, anemia and cocaine abuse. He been in his usual state of health until approximately 24 hours prior to presentation developing shortness of breath and lower extremity edema which aeration and emergency room. In the emergency room he was found to have hypertensive emergency at 240/ 115, creatinine of 15, hemoglobin of 5.5, potassium of 6.6 without peak T waves , volume overload, and cocaine positive toxicology. He admits medication and lifestyle noncompliance, started on IV Lasix, calcium gluconate and insulin. He is referred to the hospitalist for admission. Surgery is consulted for trialysis catheter placement. Hospital Course Hospital Course: Patient was admitted for hypertensive emergency with resulting shortness of breath. Patient was found to have chronic kidney disease that has progressed to stage V. Blood pressure was brought under control during this hospitalization. Patient incidentally tested positive for cocaine but denied using this. He states possibly his marijuana contain some of this. Nonetheless he was seen by Dr. Henson of nephrology and was started on hemodialysis. Left PermCath was placed. Patient is discharged home in stable condition. Outpatient hemodialysis is arranged at [facility] [place]. Physical Exam Vital Signs: Temp Pulse Resp BP Pulse Ox 98.7 F 86 19 143/66 H 97 12/22/16 10:40 12/22/16 10:40 12/22/16 10:40 12/22/16 10:40 12/22/16 10:40 Intake & Output 12/21/16 12/22/16 12/23/16 06:59 06:59 06:59 Intake Total 1273 498 Output Total 4100 Balance 1273 -3602 Weight 86.4 kg 83.3 kg GENERAL: No acute distress HEENT: Conjunctiva clear, nonicteric, moist mucous membranes, no JVD, midline trachea RESPIRATORY: Clear to auscultation bilaterally, no wheezes, no rhonchi CARDIAC: Regular rate and rhythm, no murmurs/gallops/rubs ABDOMEN: Soft, nondistended, nontender, positive bowel sounds, no rebound, no guarding EXTREMETIES: No edema, cyanosis, clubbing NEUROLOGIC: Alert, oriented to person/place/time, CN's grossly intact, no focal deficits SKIN: No rash, wounds PSYCH: Normal mood, normal affect Results Laboratory Results: 12/22/16 04:07 12/22/16 04:07 12/22/16 12/22/16 04:07 04:07 WBC 7.7 RBC 3.26 L Hgb 9.2 L Hct 28.7 L MCV 88 MCH 28.3 MCHC 32.2 RDW 18.0 H Plt Count 181 Seg Neutrophils % 73.6 Lymphocytes % 11.6 L Monocytes % 13.6 H Eosinophils % 0.8 Basophils % 0.4 Absolute Neutrophils 5.7 Absolute Lymphocytes 0.9 Absolute Monocytes 1.1 Absolute Eosinophils 0.1 Absolute Basophils 0.0 Sodium 137.3 Potassium 5.4 H Chloride 102 Carbon Dioxide 24 Anion Gap 11 BUN 69 H Creatinine 9.61 H Est GFR ( Amer) 7 L Est GFR (Non-Af Amer) 6 L Glucose 82 Calcium 8.6 Phosphorus 5.7 H Magnesium 1.4 L 12/16/16 12/16/16 12/16/16 05:45 05:45 08:40 Creatine Kinase 823 H 809 H CK-MB (CK-2) 10.60 H Troponin I 0.341 12/16/16 12/16/16 12/16/16 08:40 14:30 14:30 Creatine Kinase 704 H CK-MB (CK-2) 10.90 H 9.04 H Troponin I 0.305 0.191 12/16/16 12/16/16 20:10 20:10 Creatine Kinase 609 H CK-MB (CK-2) 7.40 H Troponin I 0.153 Impressions: Central Venous Line 12/21/16 00:00 IMPRESSION: IMAGE(S) OBTAINED DURING PROCEDURE. Guidance Fluoroscopy 12/21/16 00:00 IMPRESSION: IMAGE(S) OBTAINED DURING PROCEDURE. Guidance Ultrasound 12/21/16 00:00 IMPRESSION: IMAGE(S) OBTAINED DURING PROCEDURE. Chest X-Ray 12/21/16 12:30 IMPRESSION: Left-sided central line with its tip at the approximate junction of SVC and right atrium.. No pneumothorax is seen. Other findings as noted above Qualifiers PATEINT BEING DISCHARGED WITH ANY OF THE FOLLOWING DIAGNOSIS?: No Plan Time Spent: Less than 30 Minutes
== END 2016-12-22 12:44 | disposition home or self-care (01) | DRG 291 ==
LOC: ER 18:01 → EH 21:48 → UNDOADMIN 22:11 → EH 22:11 → ICU 23:44 → 3N 12-17 23:25
PROVIDERS: ADMIT Internal Medicine; ATTEND Internal Medicine
PROC: 06H033Z Insertion of Infusion Device into Inferior Vena Cava, Percutaneous Approach (ICD-10-PCS; principal; 2016-12-21)
PROC: B549ZZA Ultrasonography of Inferior Vena Cava, Guidance (ICD-10-PCS; 2016-12-21)
DX: I13.0 Hypertensive heart and chronic kidney disease with heart failure and stage 1 through stage 4 chronic kidney disease, or unspecified chronic kidney disease (principal); I50.31 Acute diastolic (congestive) heart failure; G93.41 Metabolic encephalopathy; N18.4 Chronic kidney disease, stage 4 (severe); I16.1 Hypertensive emergency; N17.9 Acute kidney failure, unspecified; N25.81 Secondary hyperparathyroidism of renal origin; E87.2 Acidosis; D50.9 Iron deficiency anemia, unspecified; F14.10 Cocaine abuse, uncomplicated; E87.5 Hyperkalemia; J44.9 Chronic obstructive pulmonary disease, unspecified; M10.9 Gout, unspecified; Z79.899 Other long term (current) drug therapy; Z87.891 Personal history of nicotine dependence; Z88.8 Allergy status to other drugs, medicaments and biological substances
CPT/HCPCS: 36415; 36430; 36558; 71010; 71020; 76937; 77001; 80048; 80053; 80074; 80307; 81001; 82272; 82306; 82550; 82553; 82607; 82728; 82746; 82962; 83540; 83550; 83735; 83880; 83970; 84100; 84484; 85025; 85027; 85045; 85610; 86701; 86850; 86900; 86901; 86920; 93005; 93010; 93306; 99285; C1752; J0360; J0610; J0690; J1170; J1644; J1756; J1815; J1940; J2060; J2250; J2501; J3010; J3475; J3490; J7620; P9016; Q4081; Q9967

== ENCOUNTER 2017-01-11 05:30 | Day surgery (SDC) | payer MEDICAID ==
[2017-01-07 09:44] LABS: HEMATOCRIT 30.3 % (37.9-51.0); HEMOGLOBIN 9.9 g/dL (13.5-17.0); HGB HCT DIFFERENCE -0.6; MEAN CORPUSCULAR HEMOGLOBIN 28.5 pg (27.0-33.4); MEAN CORPUSCULAR HGB CONC 32.6 g/dL (32.0-36.0); MEAN CORPUSCULAR VOLUME 88 fl (80-97); RED BLOOD COUNT 3.46 10^6/uL (4.35-5.55); RED CELL DISTRIBUTION WIDTH 17.7 % (11.5-14.0); WHITE BLOOD COUNT 6.6 10^3/uL (4.0-10.5)
[2017-01-07 10:24] LABS: ANION GAP 16 (5-19); BLOOD UREA NITROGEN 33 mg/dL (7-20); CALCIUM 9.2 mg/dL (8.4-10.2); CARBON DIOXIDE 25 mmol/L (22-30); CHLORIDE 98 mmol/L (98-107); CREATININE RESULT 7.72 mg/dL (0.52-1.25); GLUCOSE 108 mg/dL (75-110); POTASSIUM 4.7 mmol/L (3.6-5.0)
[~2017-01-11 05:30] MED LIST: NORMAL SALINE 500 ML IV PRN
[2017-01-11] MEDS ORDERED: BUPIVACAINE HCL 0.25 % INJ/PF (2.5 MG/1 ML) 30 ML VIAL ONE (06:45)
[2017-01-11] MEDS ORDERED: HEPARIN SOD (PORCINE) 1,000 UNIT/ML 10 ML VIAL ONE (06:45)
[2017-01-11] MEDS ORDERED: BACITRACIN INJ 50,000 UNIT VIAL ONE (06:45)
[2017-01-11] MEDS ORDERED: LIDOCAINE 1% INJ-PF (10 MG/ML) 30 ML SDV ONE (06:45)
[2017-01-11] MEDS ORDERED: LIDOCAINE 0.5% INJ-PF (5 MG/ML) 50 ML SDV ONE (06:45)
[2017-01-11] MEDS ORDERED: KETAMINE HCL INJ 500 MG/10 ML VIAL ONE (07:26)
[2017-01-11] MEDS ORDERED: IBUPROFEN INJ 800 MG/8 ML VIAL IV ONE (07:27)
[2017-01-11] MEDS ORDERED: DEXMEDETOMIDINE INJ 80 MCG/20 ML VIAL IV ONE (07:27)
[2017-01-11] MEDS ORDERED: MIDAZOLAM 2 MG/2 ML INJ ONE (07:27)
[2017-01-11] MEDS ORDERED: PROPOFOL INJ 200 MG/20 ML VIAL IV ONE (07:27)
[2017-01-11] MEDS ORDERED: MORPHINE SULFATE 10 MG/ML INJ ONE (07:28)
[2017-01-11] MEDS ORDERED: ALBUTEROL SULFATE 0.083% NEB 2.5 MG/3 ML AMPUL NEB ONE (07:31)
[2017-01-11] MEDS ORDERED: CEFAZOLIN INJ 1 GM VIAL ONE (08:23)
[2017-01-11] MEDS ORDERED: DIPHENHYDRAMINE HCL 50 MG/ML VIAL IV PRN (08:50)
[2017-01-11] MEDS ORDERED: FENTANYL CITRATE INJ/PF 100 MCG/2 ML AMPUL IV PRN ×3 (08:50)
[2017-01-11] MEDS ORDERED: PROMETHAZINE HCL INJ 25 MG/1 ML VIAL IV PRN ×2 (08:50)
[2017-01-11] MEDS ORDERED: MEPERIDINE HCL/PF INJ 25 MG/1 ML DISP.SYRIN IV PRN (08:50)
[2017-01-11] MEDS ORDERED: OXYCODONE-ACETAMINOPHEN 5-325 MG TABLET PO PRN ×2 (08:50)
[2017-01-11] MEDS ORDERED: MORPHINE SULFATE 10 MG/ML INJ IV PRN (08:50)
--- NOTE | 2017-01-11 09:35 | PDOC DISCHARGE SUMMARY ---
Discharge Summary (SDC) - Discharge Final Diagnosis: #1 end-stage renal disease on hemodialysis. 2. PermCath in place. 3. COPD. 4. Hypertension. Date of Surgery: 01/11/17 Discharge Date: 01/11/17 Condition: Fair Treatment or Instructions: Discharge home [after recovery per ASU criteria]. Diet , [renal],as tolerated, when fully awake advance as tolerated. Activities within moderation encouraged. Follow up in my office by appointment in about [1 week]. Call for appointment. Leave wounds [covered], [keep clean and dry, until office visit in 1 week]. Hold of on school/work [until evaluation in office]. May shower [in 48 hrs], [try to keep operated area as dry as possible Continue medications per medication reconciliation sheet and prescription for Percocet.]. Prescriptions: Oxycodone HCl/Acetaminophen [Percocet 5-325 mg Tablet] 1 tab PO ASDIR PRN #15 tab PRN Reason: Discharge Diet: Other (Comments) - Renal Respiratory Treatments at Home: Deep Breathing/Coughing Discharge Activity: Activity As Tolerated Report the Following to Your Physician Immediately: Shortness of Breath, Unusual Bleeding
--- NOTE | 2017-01-11 09:38 | Operative Report ---
Operative Report DATE OF SURGERY: 01/11/17 PREOPERATIVE DIAGNOSIS: #1 end-stage renal disease on hemodialysis. 2. PermCath in place. 3. COPD. 4. Hypertension. POSTOPERATIVE DIAGNOSIS: #1 end-stage renal disease on hemodialysis. 2. PermCath in place. 3. COPD. 4. Hypertension. OPERATION: Insertion of left radiocephalic fistula SURGEON: ISABELLA ROJAS CABLE TELEVISION TECHNICIAN: None ANESTHESIA: LMAC TISSUE REMOVED OR ALTERED: Not applicable. COMPLICATIONS: None ESTIMATED BLOOD LOSS: 5 mL per INTRAOPERATIVE FINDINGS: Satisfactory vein, accepting a 3.5 mm coronary dilator. Satisfactory artery with only mild atherosclerotic change good position good flow. Satisfactory fistula with excellent continuous bruit in the fistula, slurred waveform in the proximal radial artery and multiphasic waveform distally. PROCEDURE: Operative Report PROCEDURE: After reviewing the procedure with the patient, he was taken to the operating room. The patient was sedated and the left upper extremity] prepared with chlorhexidine and draped out with sterile linen. After the "" universal timeout", in which it was verified that the patient [received IV antibiotics] the procedure commenced. The sterilely sheathed ultrasound probe was used to evaluate the left venous and arterial systems, pertinent to the previously done vein mapping. Local anesthesia was infiltrated and a longitudinal incision made over the mid forearm , over the most distal reasonable looking radial artery. Dissection proceeded through the subcutaneous tissues down to the radial artery. This was dissected out proximally and distally for about 2 cm. . Rubber loops were placed on either end. The cephalic vein was now dissected out for a distance of about 6 cm. The patient was given 2500 units of heparin intravenously. The cephalic vein was transected and irrigated with heparinized solution. The distal branches were clipped Coronary dilators were accepted [up to 3.5 mm]. The artery was controlled proximally and distally with rubber loops. The vein was transposed into the arterial incision using a tendon passer. An arteriotomy approximately 1.2 cm in length was made, the artery was irrigated proximally and distally with heparinized solution. The transected vein was now spatulated , it was then anastomosed end to end to side into the Radial artery. This was done using a continuous suture of 6-0 Prolene. Controls of the fistula were now released and it was analyzed using a Doppler probe. Hemostasis was secured once optimal function was assured, the wound was irrigated with antibiotic containing solution and closed. Closure was done using interrupted 3-0 PDS for the subcutaneous tissues. The skin was closed, in either wound, using a continuous subcutaneous suture of 4-0 Monocryl which was reinforced with Steri- Strips over benzoin. I then left the operative field and returned with a stethoscope covered with a sterile Tegaderm dressing. This allowed external auscultation of the fistula. Auscultation was [satisfactory]. The procedure was concluded by applying a Kerlix dressing over the surgical site. DICTATING PHYSICIAN: ISABELLA ROBERTS M.D.
[2017-01-11 11:35] VITALS: BP 134/75
[2017-01-11] MEDS ORDERED: ONDANSETRON HCL INJ/PF 4 MG/2 ML SDV ONE (13:33)
[2017-01-11] MEDS ORDERED: GLYCOPYRROLATE INJ 0.4 MG/2 ML VIAL ONE (13:33)
[2017-01-11] MEDS ORDERED: METOCLOPRAMIDE HCL INJ/PF 10 MG/2 ML SDV ONE (13:33)
[2017-01-11] MEDS ORDERED: LIDOCAINE 2% INJ-PF (20 MG/ML) 10 ML AMPUL ONE (13:33)
== END 2017-01-11 11:35 | disposition home or self-care (01) ==
LOC: OROUT 05:30
PROVIDERS: ATTEND Surgery
PROC: 05SF0ZZ Reposition Left Cephalic Vein, Open Approach (ICD-10-PCS; principal; 2017-01-11 07:30)
DX: I13.2 Hypertensive heart and chronic kidney disease with heart failure and with stage 5 chronic kidney disease, or end stage renal disease (principal); I50.9 Heart failure, unspecified; N18.6 End stage renal disease; Z99.2 Dependence on renal dialysis; J44.9 Chronic obstructive pulmonary disease, unspecified; F17.210 Nicotine dependence, cigarettes, uncomplicated
CPT/HCPCS: 36415 ×2; 84132; 85027; 80048; 36818; J2250; J3490 ×6; J0690; J1644; J2765; J2270; J2405; J2704; J1741; 1844

== ENCOUNTER → 2017-05-18 | Day surgery (SDC) | payer MEDICARE, MEDICAID | LOC: CCL 10:45 | PROVIDERS: ATTEND Surgery | DX: T82.858A Stenosis of other vascular prosthetic devices, implants and grafts, initial encounter (principal) ==

== ENCOUNTER 2017-05-25 08:04 | Day surgery (SDC) | payer MEDICARE, MEDICAID ==
[2017-05-25 08:36] LABS: HEMATOCRIT 37.4 % (37.9-51.0); HEMOGLOBIN 12.9 g/dL (13.5-17.0); HGB HCT DIFFERENCE 1.3; MEAN CORPUSCULAR HEMOGLOBIN 31.7 pg (27.0-33.4); MEAN CORPUSCULAR HGB CONC 34.5 g/dL (32.0-36.0); MEAN CORPUSCULAR VOLUME 92 fl (80-97); RED BLOOD COUNT 4.08 10^6/uL (4.35-5.55); RED CELL DISTRIBUTION WIDTH 16.6 % (11.5-14.0); WHITE BLOOD COUNT 6.4 10^3/uL (4.0-10.5)
[2017-05-25 09:04] LABS: ANION GAP 16 (5-19); BLOOD UREA NITROGEN 37 mg/dL (7-20); CALCIUM 8.6 mg/dL (8.4-10.2); CARBON DIOXIDE 27 mmol/L (22-30); CHLORIDE 99 mmol/L (98-107); CREATININE RESULT 11.28 mg/dL (0.52-1.25); GLUCOSE 76 mg/dL (75-110); POTASSIUM 4.7 mmol/L (3.6-5.0); SODIUM 141.8 mmol/L (137-145)
[2017-05-25] MEDS ORDERED: LIDOCAINE 0.5% INJ-PF (5 MG/ML) 50 ML SDV ONE (09:32)
[2017-05-25] MEDS ORDERED: MIDAZOLAM 2 MG/2 ML INJ ONE ×2 (09:36→10:53)
[2017-05-25] MEDS ORDERED: FENTANYL CITRATE INJ/PF 100 MCG/2 ML AMPUL ONE ×2 (09:36→10:53)
[2017-05-25] MEDS ORDERED: HEPARIN SOD (PORCINE) 5,000 UNIT/ML 1 ML SYRINGE ONE (09:36)
--- NOTE | 2017-05-25 11:42 | PDOC DISCHARGE SUMMARY ---
Discharge Summary (SDC) - Discharge Final Diagnosis: #1 malfunctioning arteriovenous fistula. 2. End-stage renal disease on hemodialysis. 3. Hypertension. Date of Surgery: 05/25/17 Discharge Date: 05/25/17 Condition: Good Treatment or Instructions: Discharge home [after recovery per ASU criteria]. Diet , [renal],as tolerated, when fully awake advance as tolerated. Activities within moderation encouraged. Follow up in my office by appointment in about [1 week]. Call for appointment. Leave wounds [covered], [keep clean and dry, until hemodialysis]. Meds per med rec. Hold of on school/work [until evaluation in office]. May shower [in 48 hrs], [try to keep operated area as dry as possible]. Discharge Diet: Other (Comments) - Renal Respiratory Treatments at Home: Deep Breathing/Coughing Discharge Activity: Activity As Tolerated Report the Following to Your Physician Immediately: Shortness of Breath
--- NOTE | 2017-05-25 11:51 | Operative Report ---
Operative Report DATE OF SURGERY: 05/25/17 PREOPERATIVE DIAGNOSIS: #1 malfunctioning arteriovenous fistula. 2. End-stage renal disease on hemodialysis. 3. Hypertension. POSTOPERATIVE DIAGNOSIS: #1 malfunctioning arteriovenous fistula. 2. End- stage renal disease on hemodialysis. 3. Hypertension. OPERATION: 1. Needle access into fistula. Under ultrasound evaluation and guidance. 2. Angioplasty. 3. Angiogram and interpretation. SURGEON: ISABELLA ROJAS PIECE HAND: None ANESTHESIA: Moderate Sedation TISSUE REMOVED OR ALTERED: Not applicable. COMPLICATIONS: None ESTIMATED BLOOD LOSS: 2 mL. INTRAOPERATIVE FINDINGS: Of a well founded left forearm radiocephalic fistula. A suitable portion and mid fistula about 8 cm long available for easy access. Somewhat softer initially suggesting inflow issues. Angiogram demonstrated arnold flow through the fistula. On both angiogram and on ultrasound numerous branches are noted laterals. Also the superior drainage of the fistula is into the deep system just below the elbow. Connections to the basilic vein also. The cephalic vein in the arm is tiny and partially clotted. Access into the radial artery was challenging to accomplish partially because of the sharp angle. This was done and no anastomotic difficulties appear. Relative stenosis noted at about 3 cm from the anastomosis and this was markedly improved by dilatation with a 4 mm balloon. An additional challenges the patient requiring considerable medication. This may be because of a previous history of pain relief medication. Suture procedures may need to be done under local with sedation. After ligation of the medial collateral and dilatation of the proximal fistula there was marked improvement in its quality. This patient will be followed in the office closely as he may need additional interventions. PROCEDURE: PROCEDURE: After verifying the procedure and having obtained informed consent, the patient's left arm was prepared with Chlorhexidine and draped out with sterile linen. Local anesthesia infiltrated. Percutaneous access into the fistula , retrograde, obtained about 20 cm] from the arteriovenous anastomosis using a micro puncture needle this was done under ultrasound guidance with hard copy documentation preserved. Followed by micro puncture wire and then a micro puncture catheter. A 0.035 Vera wire was inserted, and over this, a 5 Tu[place]uan short introducer was placed, this was followed by a [4-mm ] angioplasty balloon . Angioplasty was serially done from the perianastomotic segment to about 8 cm away from the anastomosis. Inflating with a 3 mils syringe up to 2 minutes at a time.]. Completion angiogram demonstrated improvement.]. The instrumentation was now withdrawn over hand-held pressure. The major collateral, compression of which resulted in improved pulsation in the main fistula was selected for ligation. Local anesthesia infiltrated and an approximately 1 cm incision made. Dissection proceeded bluntly through the subcutaneous tissues down to the collateral. It was surrounded and doubly ligated with 3-0 PDS. The overlying skin was closed with interrupted 4-0 Monocryl. Steri-Strips applied. Dressings applied, procedure concluded. DICTATING PHYSICIAN: ISABELLA ROBERTS M.D. cc: ISABELLA ROBERTS M.D. ([id number]) >>
[2017-05-25 12:36] VITALS: BP 122/75
== END 2017-05-25 12:38 | disposition home or self-care (01) ==
LOC: CCL 08:04
PROVIDERS: ATTEND Surgery
PROC: 057D3DZ Dilation of Right Cephalic Vein with Intraluminal Device, Percutaneous Approach (ICD-10-PCS; principal; 2017-05-25)
DX: T82.858A Stenosis of other vascular prosthetic devices, implants and grafts, initial encounter (principal); Y83.2 Surgical operation with anastomosis, bypass or graft as the cause of abnormal reaction of the patient, or of later complication, without mention of misadventure at the time of the procedure; I13.2 Hypertensive heart and chronic kidney disease with heart failure and with stage 5 chronic kidney disease, or end stage renal disease; I50.9 Heart failure, unspecified; J44.9 Chronic obstructive pulmonary disease, unspecified; E78.00 Pure hypercholesterolemia, unspecified; N18.6 End stage renal disease; Z99.2 Dependence on renal dialysis
CPT/HCPCS: 36415; 85027; 80048; 36902; C1752; C1887; Q9967; C1769; J2250; J1644 ×2; J3010; J3490

== ENCOUNTER 2018-05-13 12:12 | Emergency (ER) | payer MEDICARE, MEDICAID ==
[2018-05-13] MEDS ORDERED: IPRATROPIUM/ALBUTEROL 0.5-2.5 MG/3 ML AMPUL NEB ONE (12:43)
[2018-05-13] MEDS ORDERED: ASPIRIN 81 MG TABLET, CHEWABLE PO ONE (12:43)
--- NOTE | 2018-05-13 12:48 | ER Document Report ---
ED Medical Screen (RME) - General Chief Complaint: Shortness Of Breath Stated Complaint: SHORTNESS OF BREATH Time Seen by Provider: 05/13/18 12:38 Mode of Arrival: Ambulatory Information source: Patient Notes: 57-year-old male with a history of COPD and renal failure on dialysis presents emergency department complaints of worsening shortness of breath. Patient states that began yesterday. He had a full dialysis session today and the shortness of breath has been worsening. His chest feels tight. Patient says that he ran out of his inhalers a week ago. He's not on home O2. No nebulizer at home. Denies fever, chills, rhinorrhea, cough. I have greeted and performed a rapid initial assessment of this patient. A comprehensive ED assessment and evaluation of the patient, analysis of test results and completion of the medical decision making process will be conducted by additional ED providers. PHYSICAL EXAMINATION: GENERAL: Well-appearing, well-nourished and in no acute distress. HEAD: Atraumatic, normocephalic. EYES: Pupils equal round extraocular movements intact, conjunctiva are normal. ENT: Nares patent NECK: Normal range of motion LUNGS: Diffuse wheezing. Musculoskeletal: Normal range of motion NEUROLOGICAL: Normal speech, normal gait. PSYCH: Normal mood, normal affect. SKIN: Warm, Dry, normal turgor, no rashes or lesions noted. TRAVEL OUTSIDE OF THE [place] IN LAST 30 DAYS: No - Related Data Allergies/Adverse Reactions: hydrochlorothiazide [Hydrochlorothiazide] Allergy (Verified 05/13/18 12:14) lisinopril [Lisinopril] Allergy (Verified 05/13/18 12:14) Angioneurotic Edema Past Medical History - Past Medical History Cardiac Medical History: Reports: Hx Hypertension Denies: Hx Coronary Artery Disease, Hx Heart Attack Pulmonary Medical History: Reports: Hx Asthma, Hx COPD, Hx Pneumonia Denies: Hx Bronchitis Neurological Medical History: Denies: Hx Cerebrovascular Accident, Hx Seizures Renal/ Medical History: Reports: Hx End Stage Renal Disease, Hx Renal Insufficiency. Denies: Hx Peritoneal Dialysis Musculoskeltal Medical History: Denies Hx Arthritis - HX OF GOUT, Reports Hx Gout Psychiatric Medical History: Denies: Hx Depression - Immunizations Hx Diphtheria, Pertussis, Tetanus Vaccination: Yes History of Influenza Vaccine for 04/2017 - 09/2017 Season: Yes Influenza Administration Date for 04/2017 - 09/2017 Season: 03/12/17 Physical Exam - Vital signs Vitals: Temp Pulse Resp BP Pulse Ox 98.7 F 65 16 200/81 H 97 05/13/18 12:18 05/13/18 12:18 05/13/18 12:18 05/13/18 12:18 05/13/18 12:18 Course - Vital Signs Vital signs: Temp Pulse Resp BP Pulse Ox 98.7 F 65 16 200/81 H 97 05/13/18 12:18 05/13/18 12:18 05/13/18 12:18 05/13/18 12:18 05/13/18 12:18
[2018-05-13] MEDS: METHYLPREDNISOLONE INJ 125 MG/2 ML SDV IV ONE ×2 (12:56→13:52)
--- NOTE | 2018-05-13 14:01 | RADIOLOGY REPORT (SQ) ---
EXAM DESCRIPTION: CHEST SINGLE VIEW COMPLETED DATE/TIME: 05/13/2018 1:40 pm REASON FOR STUDY: shortness of breath COMPARISON: 12/15/2016 EXAM PARAMETERS: NUMBER OF VIEWS: One view. TECHNIQUE: Single frontal radiographic view of the chest acquired. RADIATION DOSE: NA LIMITATIONS: None. FINDINGS: LUNGS AND PLEURA: No opacities, masses or pneumothorax. No pleural effusion. MEDIASTINUM AND HILAR STRUCTURES: Questionable widening of the upper mediastinum on the right. Likel y vascular. HEART AND VASCULAR STRUCTURES: Heart size is borderline. There is no pulmonary edema. BONES: No acute findings. HARDWARE: None in the chest. OTHER: No other significant finding. IMPRESSION: Borderline cardiomegaly without pulmonary edema. Questionable widening of the upper med iastinum. TECHNICAL DOCUMENTATION: JOB ID: [id number] [employer]- All Rights Reserved Reading location - IP/workstation name: [email or web address]
--- NOTE | 2018-05-13 14:12 | ER Document Report ---
ED Respiratory Problem - General Information source: Patient <ROSENDO ETIENNE - Last Filed: 05/13/18 14:15> - General Mode of Arrival: Ambulatory TRAVEL OUTSIDE OF THE [place] IN LAST 30 DAYS: No <DEJAH PINTO - Last Filed: 05/13/18 15:04> - General Chief Complaint: Shortness Of Breath Stated Complaint: SHORTNESS OF BREATH Time Seen by Provider: 05/13/18 12:38 Notes: This 57-year-old COPD with asthma on dialysis ran out of his albuterol inhaler in the past week, and his Incruse Ellipta. He does still have his Advair Diskus. He did receive 1 DuoNeb treatment before I saw him. He states his breathing is considerably better after the DuoNeb and he feels ready to go. I will give him a 60 mg dose of prednisone to go along with the Solu-Medrol he received. He will get a prescription for his Incruse Ellipta, and albuterol inhalers. (ROSENDO ETIENNE) - Related Data Allergies/Adverse Reactions: hydrochlorothiazide [Hydrochlorothiazide] Allergy (Verified 05/13/18 12:14) lisinopril [Lisinopril] Allergy (Verified 05/13/18 12:14) Angioneurotic Edema Past Medical History - General Information source: Patient - Social History Smoking Status: Former Smoker Cigarette use (# per day): No Frequency of alcohol use: None Drug Abuse: None Lives with: Family Family History: None Patient has suicidal ideation: No Patient has homicidal ideation: No - Past Medical History Cardiac Medical History: Reports: Hx Hypertension Pulmonary Medical History: Reports: Hx Asthma, Hx COPD, Hx Pneumonia Renal/ Medical History: Reports: Hx End Stage Renal Disease, Hx Renal Insufficiency Musculoskeletal Medical History: Reports Hx Gout - Immunizations Hx Diphtheria, Pertussis, Tetanus Vaccination: Yes <DEJAH PINTO - Last Filed: 05/13/18 15:04> Review of Systems - Review of Systems Constitutional: No symptoms reported EENT: No symptoms reported Cardiovascular: No symptoms reported Respiratory: See HPI, Short of breath, Wheezing Gastrointestinal: No symptoms reported Genitourinary: No symptoms reported Male Genitourinary: No symptoms reported Musculoskeletal: No symptoms reported Skin: No symptoms reported Hematologic/Lymphatic: No symptoms reported Neurological/Psychological: No symptoms reported -: Yes All other systems reviewed and negative <DEJAH PINTO - Last Filed: 05/13/18 15:04> Physical Exam <ROSENDO ETIENNE - Last Filed: 05/13/18 14:15> <DEJAH PINTO - Last Filed: 05/13/18 15:04> - Vital signs Vitals: Temp Pulse Resp BP Pulse Ox 98.7 F 65 16 200/81 H 97 05/13/18 12:18 05/13/18 12:18 05/13/18 12:18 05/13/18 12:18 05/13/18 12:18 - Notes Notes: Physical Exam: General: Alert, appears well. HEENT: Normocephalic. Atraumatic. PERRL. Extraocular movements intact. Oropharynx clear. Neck: Supple. Non-tender. Respiratory: No respiratory distress. Wheezing bilaterally. Cardiovascular: Regular rate and rhythm. Abdominal: Normal Inspection. Non-tender. No distension. Normal Bowel Sounds. Back: Non-tender. No deformity or step off. Extremities: Moves all four extremities. Upper extremities: Normal inspection. Normal ROM. Lower extremities: Normal inspection. No edema. Normal ROM. Neurological: Normal cognition. AAOx4. Normal speech. Psychological: Normal affect. Normal Mood. Skin: Warm. Dry. Normal color. (DEJAH PINTO) Course - Laboratory Result Diagrams: 05/13/18 13:56 05/13/18 13:56 <ROSENDO ETIENNE - Last Filed: 05/13/18 14:15> - Laboratory Result Diagrams: 05/13/18 13:56 05/13/18 13:56 <DEJAH PINTO - Last Filed: 05/13/18 15:04> - Vital Signs Vital signs: Temp Pulse Resp BP Pulse Ox 98.7 F 65 16 200/81 H 97 05/13/18 12:18 05/13/18 12:18 05/13/18 12:18 05/13/18 12:18 05/13/18 12:18 - Laboratory Laboratory results interpreted by me: 05/13/18 05/13/18 13:56 13:56 RBC 3.20 L Hgb 10.9 L Hct 30.2 L MCH 34.2 H MCHC 36.2 H RDW 15.6 H Chloride 96 L Carbon Dioxide 31 H Creatinine 5.60 H Est GFR ( Amer) 13 L Est GFR (Non-Af Amer) 10 L ALT 15 L Discharge <ROSENDO ETIENNE - Last Filed: 05/13/18 14:15> <DEJAH PINTO - Last Filed: 05/13/18 15:04> - Discharge Clinical Impression: COPD exacerbation Condition: Stable Disposition: HOME, SELF-CARE Additional Instructions: Take medications as prescribed for your wheezing and shortness of breath. Follow-up with your pulmonary medicine doctor so you do not run out of medication. RETURN TO THE EMERGENCY ROOM IF ANY NEW OR WORSENING SYMPTOMS. Prescriptions: Albuterol Sulfate [Proair HFA] 1 - 2 puff IH Q4 PRN #1 inhaler PRN Reason: Umeclidinium Christmas [Incruse Ellipta] 62.5 mcg IH DAILY #1 inhaler Scribe Attestation: 05/13/18 14:19 I personally performed the services described in the documentation, reviewed and edited the documentation which was dictated to the scribe in my presence, and it accurately records my words and actions. (ROSENDO ETIENNE)
[2018-05-13] MEDS ORDERED: ALBUTEROL SULFATE 0.083% NEB 2.5 MG/3 ML AMPUL NEB ONE (14:14)
[2018-05-13] MEDS ORDERED: ALBUTEROL SULFATE HFA (90 MCG/PUFF) 8 GM MDI (1 MDI/ER DISP) IH ONE (14:14)
[2018-05-13] MEDS ORDERED: PREDNISONE 20 MG TABLET PO ONE (14:14)
[2018-05-13 14:18] LABS: ABSOLUTE EOSINOPHILS # (AUTO) 0.3 10^3/uL (0.0-0.6); ABSOLUTE LYMPHOCYTES (AUTO) 1.8 10^3/uL (0.5-4.7); ABSOLUTE MONOCYTES (AUTO) 0.8 10^3/uL (0.1-1.4); BASOPHILS % (AUTO) 0.6 % (0-2); EOSINOPHILS % (AUTO) 3.6 % (0-6); HEMATOCRIT 30.2 % (37.9-51.0); HEMOGLOBIN 10.9 g/dL (13.5-17.0); LYMPHOCYTES % (AUTO) 23.2 % (13-45); MEAN CORPUSCULAR HEMOGLOBIN 34.2 pg (27.0-33.4); MEAN CORPUSCULAR HGB CONC 36.2 g/dL (32.0-36.0); MEAN CORPUSCULAR VOLUME 95 fl (80-97); MONOCYTES % (AUTO) 9.6 % (3-13); PLATELET COUNT 227 10^3/uL (150-450); RED CELL DISTRIBUTION WIDTH 15.6 % (11.5-14.0); TOTAL CELLS COUNTED % (AUTO) 100 %; WHITE BLOOD COUNT 7.9 10^3/uL (4.0-10.5)
[2018-05-13 14:46] LABS: ALANINE AMINOTRANSFERASE 15 U/L (21-72); ALKALINE PHOSPHATASE 72 U/L (38-126); ANION GAP 11 (5-19); ASPARTATE AMINO TRANSFERASE 18 U/L (17-59); BILIRUBIN,DIRECT 0.3 mg/dL (0.0-0.4); BILIRUBIN,TOTAL 0.5 mg/dL (0.2-1.3); BLOOD UREA NITROGEN 12 mg/dL (7-20); CALCIUM 9.4 mg/dL (8.4-10.2); CARBON DIOXIDE 31 mmol/L (22-30); CHLORIDE 96 mmol/L (98-107); GLUCOSE 80 mg/dL (75-110); POTASSIUM 3.6 mmol/L (3.6-5.0); SODIUM 138.1 mmol/L (137-145)
[2018-05-13 15:19] VITALS: BP 204/113
--- NOTE | 2018-05-13 19:06 | EKG REPORT ---
SEVERITY:- ABNORMAL ECG - SINUS RHYTHM FIRST DEGREE AV BLOCK NONSPECIFIC INTRAVENTRICULAR CONDUCTION DELAY PROBABLE LEFT VENTRICULAR HYPERTROPHY : Confirmed by: Verito Strong MD 13-May-2018 19:05:48
== END 2018-05-13 15:25 | disposition home or self-care (01) ==
LOC: ER 12:12
DX: J44.1 Chronic obstructive pulmonary disease with (acute) exacerbation (principal); I12.0 Hypertensive chronic kidney disease with stage 5 chronic kidney disease or end stage renal disease; N18.6 End stage renal disease; E11.22 Type 2 diabetes mellitus with diabetic chronic kidney disease; R06.02 Shortness of breath; Z99.2 Dependence on renal dialysis; Z79.899 Other long term (current) drug therapy; Z87.891 Personal history of nicotine dependence
CPT/HCPCS: 93005; 94640 ×2; 99285; 96374; 36415; 85025; 80053; 84484; 71045; 93010; A9270 ×4; J2930; J3490; J7512; J7620

== ENCOUNTER 2019-01-28 11:43 | Observation (INO) | payer MEDICARE, MEDICAID ==
--- NOTE | 2019-01-28 12:18 | RADIOLOGY REPORT (SQ) ---
EXAM DESCRIPTION: CHEST SINGLE VIEW COMPLETED DATE/TIME: 01/28/2019 12:06 pm REASON FOR STUDY: Shortness of breath and wheezing. COMPARISON: 05/13/2018. 11/19/2015. EXAM PARAMETERS: NUMBER OF VIEWS: One view. TECHNIQUE: Single frontal radiographic view of the chest acquired. RADIATION DOSE: NA LIMITATIONS: None. FINDINGS: LUNGS AND PLEURA: Hyperinflation of the lungs consistent with COPD. Fibrotic scarring rig ht mid lung field. MEDIASTINUM AND HILAR STRUCTURES: No masses. Contour normal. HEART AND VASCULAR STRUCTURES: The heart is normal. The pulmonary vasculature is normal. BONES: No acute findings. HARDWARE: None in the chest. OTHER: No other significant finding. IMPRESSION: COPD. Fibrotic scarring right upper lobe. TECHNICAL DOCUMENTATION: JOB ID: [id number] [employer]- All Rights Reserved Reading location - IP/workstation name: [email or web address]
[2019-01-28] MEDS: MAGNESIUM SULFATE/D5W 1 GM/100 ML RTUPB IV SCH ×2 (12:26→13:06)
[2019-01-28] MEDS ORDERED: IPRATROPIUM/ALBUTEROL 0.5-2.5 MG/3 ML AMPUL NEB ONE (13:30)
--- NOTE | 2019-01-28 14:47 | ER Document Report ---
ED Respiratory Problem - General Chief Complaint: Respiratory Distress Stated Complaint: DIFFICULTY BREATHING Time Seen by Provider: 01/28/19 11:51 Notes: Patient is having difficulty breathing and wheezing for the past couple of days. He has a history of COPD and has home inhalers, but not nebulizer. Is not on any oxygen at home either. Patient is a dialysis patient and went to his dialysis yesterday, as scheduled. His next dialysis is Wednesday. He says he has had a cough and congestion over the past couple of days. Has not had any fever. No other symptoms or complaints. TRAVEL OUTSIDE OF THE [place] IN LAST 30 DAYS: No - Related Data Allergies/Adverse Reactions: hydrochlorothiazide [Hydrochlorothiazide] Allergy (Verified 05/13/18 12:14) lisinopril [Lisinopril] Allergy (Verified 05/13/18 12:14) Angioneurotic Edema Past Medical History - Social History Smoking Status: Never Smoker Chew tobacco use (# tins/day): No Frequency of alcohol use: None Drug Abuse: None Family History: None, Reviewed & Not Pertinent Patient has suicidal ideation: No Patient has homicidal ideation: No - Past Medical History Cardiac Medical History: Reports: Hx Congestive Heart Failure, Hx Hypertension Denies: Hx Coronary Artery Disease, Hx Heart Attack Pulmonary Medical History: Reports: Hx Asthma, Hx COPD, Hx Pneumonia Renal/ Medical History: Reports: Hx End Stage Renal Disease, Hx Renal Insufficiency Musculoskeletal Medical History: Denies Hx Arthritis - HX OF GOUT - Immunizations Hx Diphtheria, Pertussis, Tetanus Vaccination: Yes Review of Systems - Review of Systems Notes: REVIEW OF SYSTEMS: CONSTITUTIONAL : Denies fever. EENT: Denies eye, ear, nose or mouth or throat pain or other symptoms. CARDIOVASCULAR: Denies chest pain. RESPIRATORY: See HPI. Newly developed cough about 2 days ago. GASTROINTESTINAL: Denies abdominal pain or nausea, vomiting, or diarrhea. GENITOURINARY: Denies difficulty or painful urinating, urinary frequency, blood in urine. MUSCULOSKELETAL: Denies back or neck pain. Denies joint pain or swelling. SKIN: Denies rash or skin lesions. NEUROLOGICAL: Denies LOC or altered mental status. Denies headache. Denies sensory loss or motor deficits. ALL OTHER SYSTEMS REVIEWED AND NEGATIVE. Physical Exam - Vital signs Vitals: Resp BP Pulse Ox 18 200/100 H 99 01/28/19 11:50 01/28/19 11:50 01/28/19 11:50 Interpretation: Hypertensive. No: Febrile Notes: PHYSICAL EXAMINATION: GENERAL: Mild distress with nebulizer going up on arrival.. Pressure high, around 200 systolic. HEAD: Atraumatic, normocephalic. EYES: Pupils equal round and reactive to light, extraocular movements intact. ENT: oropharynx clear without exudates. Moist mucous membranes. NECK: Normal range of motion, supple. LUNGS: Diffuse expiratory wheezes throughout all lung huff. Good exchange of air, however. HEART: Regular rate and rhythm without murmurs. ABDOMEN: Soft, nontender. No guarding or rebound. No masses. BACK: No tenderness throughout entire back. EXTREMITIES: Normal range of motion without pain. NEUROLOGICAL: Normal speech, normal gait. Normal sensory, motor, and reflex exams. Awake, alert, and oriented x3. Cranial nerves normal. PSYCH: Normal mood, normal affect. SKIN: Warm, dry, no rashes. Course - Re-evaluation Re-evalutation: 01/28/19 14:46 Patient received another couple of Duo-nebs after arrival. Received Solu-Medrol upon arrival. Also gave the patient 2 g of magnesium sulfate IV. Patient has improved, but still has scattered wheezes bilaterally. And is on oxygen. I do not think the patient is capable of being discharged home safely. Spoke with hospitalist who will admit the patient to telemetry. - Vital Signs Vital signs: Temp Pulse Resp BP Pulse Ox 98.7 F 70 18 182/89 H 93 01/28/19 19:26 01/28/19 19:55 01/28/19 19:55 01/28/19 19:26 01/28/19 19:55 - Laboratory Result Diagrams: 01/28/19 12:08 01/28/19 12:08 Laboratory results interpreted by me: 01/28/19 01/28/19 01/28/19 12:08 12:08 12:08 RBC 3.64 L Hgb 12.1 L Hct 36.2 L MCV 99 H RDW 17.6 H Seg Neutrophils % 79.6 H Lymphocytes % 10.4 L BUN 37 H Creatinine 11.21 H Est GFR ( Amer) 6 L Est GFR (Non-Af Amer) 5 L Direct Bilirubin 0.8 H NT-Pro-B Natriuret Pep 8460 H - Diagnostic Test Radiology results interpreted by me: 01/28/19 14:48 Patient's chest x-ray shows COPD and some scarring. No active infiltrates. No evidence of failure. - EKG Interpretation by Me EKG shows normal: Sinus rhythm Rate: Normal Rhythm: NSR Voltage: Consistant with LVH Critical Care Note - Critical Care Note Total time excluding time spent on procedures (mins): 40 Discharge - Discharge Clinical Impression: COPD exacerbation, Renal failure Condition: Stable Disposition: ADMITTED OBSERVATION Admitting Provider: jerry Bueno Unit Admitted: Telemetry
[2019-01-28] MEDS ORDERED: GUAIFENESIN SYRP 200 MG/10 ML UDC PO PRN (15:42)
[2019-01-28] MEDS ORDERED: ACETAMINOPHEN 325 MG TABLET PO PRN (15:42)
[2019-01-28] MEDS ORDERED: ALBUTEROL SULFATE 0.083% NEB 2.5 MG/3 ML AMPUL NEB PRN (15:42)
[2019-01-28] MEDS ORDERED: CLONIDINE HCL 0.2 MG TABLET PO ONE (16:00)
[2019-01-28 16:06] LABS: ABSOLUTE BASOPHILS # (AUTO) 0.1 10^3/uL (0.0-0.2); ABSOLUTE EOSINOPHILS # (AUTO) 0.1 10^3/uL (0.0-0.6); ABSOLUTE MONOCYTES (AUTO) 0.7 10^3/uL (0.1-1.4); ABSOLUTE NEUT (AUTO) 7.3 10^3/uL (1.7-8.2); BASOPHILS % (AUTO) 0.7 % (0-2); EOSINOPHILS % (AUTO) 1.3 % (0-6); HEMATOCRIT 36.2 % (37.9-51.0); HEMOGLOBIN 12.1 g/dL (13.5-17.0); LYMPHOCYTES % (AUTO) 10.4 % (13-45); MEAN CORPUSCULAR HEMOGLOBIN 33.2 pg (27.0-33.4); MEAN CORPUSCULAR HGB CONC 33.5 g/dL (32.0-36.0); MEAN CORPUSCULAR VOLUME 99 fl (80-97); PLATELET COUNT 162 10^3/uL (150-450); RED BLOOD COUNT 3.64 10^6/uL (4.35-5.55); RED CELL DISTRIBUTION WIDTH 17.6 % (11.5-14.0); SEGMENTED NEUTROPHILS % (AUTO) 79.6 % (42-78); TOTAL CELLS COUNTED % (AUTO) 100 %; WHITE BLOOD COUNT 9.1 10^3/uL (4.0-10.5)
[2019-01-28 16:12] LABS: ALANINE AMINOTRANSFERASE 21 U/L (21-72); ALBUMIN 4.1 g/dL (3.5-5.0); ALKALINE PHOSPHATASE 78 U/L (38-126); ANION GAP 10 (5-19); ASPARTATE AMINO TRANSFERASE 25 U/L (17-59); BILIRUBIN,DIRECT 0.8 mg/dL (0.0-0.4); BLOOD UREA NITROGEN 37 mg/dL (7-20); CARBON DIOXIDE 28 mmol/L (22-30); CHLORIDE 102 mmol/L (98-107); GLUCOSE 94 mg/dL (75-110); POTASSIUM 4.1 mmol/L (3.6-5.0); TOTAL PROTEIN 7.5 g/dL (6.3-8.2)
[2019-01-28] MEDS ORDERED: ALBUTEROL SULFATE HFA (90 MCG/PUFF) 200 PUFF/8.5 GM MDI IH PRN (16:17)
[2019-01-28] MEDS ORDERED: PATIROMER CALCIUM SORBITEX 8.4 GM PO PRN (16:17)
[2019-01-28] MEDS ORDERED: LOSARTAN POTASSIUM 25 MG TABLET PO SCH (16:30)
--- NOTE | 2019-01-28 16:33 | PDOC H&P ---
History of Present Illness Admission Date/PCP: 01/28/19 15:24 Patient complains of: shortness of breath History of Present Illness: YUDITH DRAKE JR is a 58 year old male with past medical history of ESRD on MWF dialysis schedule, CHF, hypertension, obesity, and substance abuse who presents to the emergency department today with a complaint of sudden onset of shortness of breath last night the progressively worsened until he called EMS today. He received nebulizer treatments and Solu-Medrol 125 mg via EMS. He is received additional nebulizer treatment and 2 g IV magnesium since arrival to the emergency department with some improvement in his dyspnea. He is maintaining oxygen saturations in the mid 90s on room air. Evaluation in the emergency department found BP 221/107, tachypnea, wheezing/rhonchi throughout despite treatment. Evaluation including chest x-ray demonstrating chronic changes related to COPD and EKG showing sinus rhythm with first-degree block and probable LVH. Laboratory evaluation was not undertaken. Due to the patient's continued extensive wheezing, he was referred to the hospitalist service for admission and management of the above-stated complaints and findings. Past Medical History Cardiac Medical History: Reports: Congestive Heart Failure, Hypertension Denies: Coronary Artery Disease, Myocardial Infarction Pulmonary Medical History: Reports: Asthma, Chronic Obstructive Pulmonary Disease (COPD), Pneumonia EENT Medical History: Reports: None Neurological Medical History: Reports: None Endocrine Medical History: Reports: Obesity Renal/ Medical History: Reports: End Stage Renal Disease Malignancy Medical History: Reports: None GI Medical History: Reports: None Musculoskeltal Medical History: Reports: Gout Skin Medical History: Reports: None Psychiatric Medical History: Reports: Substance Abuse Hematology: Reports: Anemia Infectious Medical History: Reports: None Past Surgical History Past Surgical History: Reports: None Social History Information Source: Patient Smoking Status: Never Smoker Frequency of Alcohol Use: None Hx Recreational Drug Use: Yes Drugs: Cocaine, Marijuana Hx Prescription Drug Abuse: Yes - Advance Directive Resuscitation Status: Full Code Family History Family History: Reviewed & Not Pertinent, COPD Parental Family History Reviewed: Yes Children Family History Reviewed: Yes Sibling(s) Family History Reviewed.: Yes Medication/Allergy Home Medications: Albuterol Sulfate [Proair Hfa Inhalation Aerosol 8.5 gm Mdi] 2 puff IH QIDP PRN 01/28/19 Furosemide [Lasix 80 mg Tablet] 80 mg PO SUTUTHSA@1000 01/28/19 Losartan Potassium [Cozaar 50 mg Tablet] 50 mg PO Q12 01/28/19 Patiromer Calcium Sorbitex [Veltassa] 8.4 gm PO DAILYP PRN 01/28/19 Sildenafil Citrate [Viagra] 50 mg PO DAILYP PRN 01/28/19 Allergies/Adverse Reactions: hydrochlorothiazide [Hydrochlorothiazide] Allergy (Verified 05/13/18 12:14) lisinopril [Lisinopril] Allergy (Verified 05/13/18 12:14) Angioneurotic Edema Review of Systems Constitutional: ABSENT: chills, fever(s), headache(s), weight gain, weight loss Eyes: ABSENT: visual disturbances Ears: ABSENT: hearing changes Cardiovascular: ABSENT: chest pain, dyspnea on exertion, edema, orthropnea, palpitations Respiratory: PRESENT: cough, dyspnea, sputum. ABSENT: hemoptysis Gastrointestinal: ABSENT: abdominal pain, constipation, diarrhea, hematemesis, hematochezia, nausea, vomiting Genitourinary: ABSENT: dysuria, hematuria Musculoskeletal: ABSENT: joint swelling Integumentary: ABSENT: rash, wounds Neurological: ABSENT: abnormal gait, abnormal speech, confusion, dizziness, focal weakness, syncope Psychiatric: ABSENT: anxiety, depression, homidical ideation, suicidal ideation Endocrine: ABSENT: cold intolerance, heat intolerance, polydipsia, polyuria Hematologic/Lymphatic: ABSENT: easy bleeding, easy bruising Physical Exam Vital Signs: Temp Pulse Resp BP Pulse Ox 98.4 F 18 202/117 H 97 01/28/19 12:39 01/28/19 13:01 01/28/19 13:01 01/28/19 13:01 Intake & Output 01/27/19 01/28/19 01/29/19 06:59 06:59 06:59 Intake Total 167 Balance 167 Weight 92.986 kg General appearance: PRESENT: no acute distress, well-developed, well-nourished - Overweight Head exam: PRESENT: atraumatic, normocephalic Eye exam: PRESENT: conjunctiva pink, EOMI, PERRLA. ABSENT: scleral icterus Ear exam: PRESENT: normal external ear exam Mouth exam: PRESENT: moist, tongue midline Teeth exam: PRESENT: poor dentation Neck exam: ABSENT: carotid bruit, JVD, lymphadenopathy, thyromegaly Respiratory exam: PRESENT: prolonged expiratory phas, rhonchi, symmetrical, tachypnea, unlabored, wheezes. ABSENT: rales Cardiovascular exam: PRESENT: RRR, +S1 - Is, +S2. ABSENT: diastolic murmur, rubs, systolic murmur Pulses: PRESENT: normal dorsalis pedis pul Vascular exam: PRESENT: normal capillary refill GI/Abdominal exam: PRESENT: normal bowel sounds, soft. ABSENT: distended, guarding, mass, organolmegaly, rebound, tenderness Rectal exam: PRESENT: deferred Extremities exam: PRESENT: full ROM. ABSENT: calf tenderness, clubbing, pedal edema Neurological exam: PRESENT: alert, awake, oriented to person, oriented to place, oriented to time, oriented to situation, CN II-XII grossly intact. ABSENT: motor sensory deficit Psychiatric exam: PRESENT: agitated, normal mood. ABSENT: homicidal ideation, suicidal ideation Skin exam: PRESENT: dry, intact, warm. ABSENT: cyanosis, rash Results Laboratory Results: 01/28/19 12:08 01/28/19 12:08 01/28/19 01/28/19 12:08 12:08 WBC 9.1 RBC 3.64 L Hgb 12.1 L Hct 36.2 L MCV 99 H MCH 33.2 MCHC 33.5 RDW 17.6 H Plt Count 162 Seg Neutrophils % 79.6 H Lymphocytes % 10.4 L Monocytes % 8.0 Eosinophils % 1.3 Basophils % 0.7 Absolute Neutrophils 7.3 Absolute Lymphocytes 1.0 Absolute Monocytes 0.7 Absolute Eosinophils 0.1 Absolute Basophils 0.1 Sodium 140.4 Potassium 4.1 Chloride 102 Carbon Dioxide 28 Anion Gap 10 BUN 37 H Creatinine 11.21 H Est GFR ( Amer) 6 L Est GFR (Non-Af Amer) 5 L Glucose 94 Calcium 9.0 Total Bilirubin 1.0 AST 25 ALT 21 Alkaline Phosphatase 78 Total Protein 7.5 Albumin 4.1 Impressions: Chest X-Ray 01/28/19 11:51 IMPRESSION: COPD. Fibrotic scarring right upper lobe. Assessment and Plan - Diagnosis (1) Hypertensive urgency Is this a current diagnosis for this admission?: Yes Plan: Patient with blood pressure 221/107, 202/117. He reports that he frequently has elevated blood pressures. He denies headache, dizziness, blurred vision. Did present with shortness of breath related to COPD exacerbation. CMP, UA, UDS pending. We will provide clonidine 0.2 mg x 1 now. Resume his home dose losartan 50 mg daily. Resume home dose furosemide 800 mg Wednesday, Wednesday, , Wednesday. IV hydralazine as needed for blood pressure control. Renal/low-sodium diet. (2) COPD exacerbation Is this a current diagnosis for this admission?: Yes Plan: Patient has received IV Solu-Medrol, 2 g IV magnesium, and nebulizer treatments. Continues to have rhonchi and wheezing throughout the maintaining oxygen saturations on room air. Continue supplemental oxygen as needed to maintain saturations >89% We will continue IV Solu-Medrol. Continue scheduled and as needed nebulizer treatments. Continue Mucinex twice daily. Flutter valve to bedside. (3) CHF (congestive heart failure) Qualifiers: Heart failure type: unspecified Heart failure chronicity: chronic Qualified Code(s): I50.9 - Heart failure, unspecified Is this a current diagnosis for this admission?: Yes Plan: Patient reports history of CHF related to fluid volume overload/ASD R. Echocardiogram December 26 revealed normal LVEF with grade 2 diastolic dysfunction. LVH, dilated cardiomyopathy, moderate pulmonary hypertension. proBNP is pending. Appears compensated and without exacerbation at this time. (4) End stage renal disease on dialysis Is this a current diagnosis for this admission?: Yes Plan: Patient reports that he received adequate dialysis on Wednesday. Next due on Wednesday. CMP pending. If he is not discharged tomorrow, will ensure that he is on the schedule for dialysis on Wednesday. Renal diet. Continue home dose Veltassa.
--- NOTE | 2019-01-28 18:02 | EKG REPORT ---
SEVERITY:- ABNORMAL ECG - SINUS RHYTHM FIRST DEGREE AV BLOCK PROBABLE LEFT VENTRICULAR HYPERTROPHY : Confirmed by: Thaddeus Munoz MD 28-Jan-2019 18:02:03
[2019-01-28] MEDS: IPRATROPIUM/ALBUTEROL 0.5-2.5 MG/3 ML AMPUL NEB SCH (19:50)
[2019-01-28] MEDS: HYDRALAZINE HCL INJ/PF 20 MG/1 ML SDV IV PRN (20:33)
[2019-01-28] MEDS: GUAIFENESIN 600 MG TABLET.SA PO SCH (21:58)
[2019-01-28] MEDS: METHYLPREDNISOLONE INJ 40 MG/1 ML SDV IV SCH (21:59)
[2019-01-28] MEDS ORDERED: AMLODIPINE BESYLATE 5 MG TABLET PO SCH (22:00)
[2019-01-28] MEDS: HEPARIN SOD (PORCINE) 5,000 UNIT/ML 1 ML VIAL SUBCUT SCH (22:05)
[2019-01-28] MEDS ORDERED: PATIROMER 8.4 GM SUSP PACKET PO PRN (22:57)
[2019-01-28] MEDS ORDERED: FAMOTIDINE INJ/PF 20 MG/2 ML SDV IV ONE (23:00)
[2019-01-28] MEDS ORDERED: HYDRALAZINE HCL 10 MG TABLET PO ONE (23:45)
[2019-01-28] MEDS ORDERED: AMLODIPINE BESYLATE 5 MG TABLET PO ONE (23:45)
[2019-01-29] MEDS: IPRATROPIUM/ALBUTEROL 0.5-2.5 MG/3 ML AMPUL NEB SCH ×4 (02:06→19:58)
[2019-01-29] MEDS: HYDRALAZINE HCL INJ/PF 20 MG/1 ML SDV IV PRN ×2 (04:50→19:56)
[2019-01-29 05:33] LABS: HEMOGLOBIN 12.1 g/dL (13.5-17.0); MEAN CORPUSCULAR HEMOGLOBIN 33.3 pg (27.0-33.4); MEAN CORPUSCULAR HGB CONC 33.7 g/dL (32.0-36.0); MEAN CORPUSCULAR VOLUME 99 fl (80-97); PLATELET COUNT 165 10^3/uL (150-450); RED BLOOD COUNT 3.64 10^6/uL (4.35-5.55); RED CELL DISTRIBUTION WIDTH 17.2 % (11.5-14.0); WHITE BLOOD COUNT 6.5 10^3/uL (4.0-10.5)
[2019-01-29] MEDS: HEPARIN SOD (PORCINE) 5,000 UNIT/ML 1 ML VIAL SUBCUT SCH ×3 (06:03→21:09)
[2019-01-29] MEDS: METHYLPREDNISOLONE INJ 40 MG/1 ML SDV IV SCH ×3 (06:05→21:28)
[2019-01-29 07:59] LABS: ANION GAP 14 (5-19); BLOOD UREA NITROGEN 53 mg/dL (7-20); CALCIUM 9.6 mg/dL (8.4-10.2); CARBON DIOXIDE 23 mmol/L (22-30); CHLORIDE 99 mmol/L (98-107); GLUCOSE 116 mg/dL (75-110); POTASSIUM 4.9 mmol/L (3.6-5.0)
[2019-01-29] MEDS ORDERED: HYDROMORPHONE HCL INJ/PF 2 MG/ML AMPULE IV PRN (09:07)
[2019-01-29] MEDS ORDERED: DIPHENHYDRAMINE HCL 50 MG/ML VIAL IV PRN (09:08)
[2019-01-29] MEDS ORDERED: NORMAL SALINE 1000 ML 1,000 ML IV PRN (09:09)
[2019-01-29] MEDS: FAMOTIDINE INJ/PF 20 MG/2 ML SDV IV SCH (09:41)
[2019-01-29] MEDS: LOSARTAN POTASSIUM 50 MG TABLET PO SCH (09:41)
[2019-01-29] MEDS: GUAIFENESIN 600 MG TABLET.SA PO SCH ×2 (09:42→21:28)
[2019-01-29] MEDS: AMLODIPINE BESYLATE 5 MG TABLET PO SCH ×2 (09:42→17:18)
[2019-01-29] MEDS ORDERED: FAMOTIDINE INJ/PF 20 MG/2 ML SDV IV SCH (10:00)
[2019-01-29] MEDS ORDERED: FUROSEMIDE 80 MG TABLET PO SCH (10:00)
--- NOTE | 2019-01-29 16:01 | PDOC PROGRESS REPORT ---
Subjective Progress Note for:: 01/29/19 Subjective:: YUDITH DRAKE JR is a 58 year old male with past medical history of ESRD on MWF dialysis schedule, CHF, hypertension, obesity, and substance abuse who was admitted 01/28/2019 with hypertensive urgency and a COPD exacerbation. Patient was seen on morning rounds. He was found sitting upright in bed comfortably on room air. He reports that he is feeling somewhat better today. He no longer has dyspnea while at rest, but does continue to have a productive cough and is extremely short of breath with minimal activity. He denies fever, chills, chest pain, palpitations, orthopnea, abdominal pain, nausea vomiting diarrhea, peripheral edema. He has no questions or concerns today. No concerns per nursing. Reason For Visit: HYPERTENSIVE URGENCY,COPD EXACERBATION Physical Exam Vital Signs: Temp Pulse Resp BP Pulse Ox 98.9 F 84 16 171/81 H 96 01/29/19 12:30 01/29/19 14:00 01/29/19 12:30 01/29/19 12:30 01/29/19 12:30 Intake & Output 01/28/19 01/29/19 01/30/19 06:59 06:59 06:59 Intake Total 887 Balance 887 Weight 91.2 kg General appearance: PRESENT: no acute distress, well-developed, well-nourished - Overweight Head exam: PRESENT: atraumatic, normocephalic Eye exam: PRESENT: conjunctiva pink, EOMI, PERRLA. ABSENT: scleral icterus Ear exam: PRESENT: normal external ear exam Mouth exam: PRESENT: moist, tongue midline Teeth exam: PRESENT: poor dentation Neck exam: ABSENT: carotid bruit, JVD, lymphadenopathy, thyromegaly Respiratory exam: PRESENT: prolonged expiratory phas, rhonchi, symmetrical, unlabored, wheezes - Throughout. ABSENT: rales Cardiovascular exam: PRESENT: RRR, +S1, +S2. ABSENT: diastolic murmur, rubs Pulses: PRESENT: normal dorsalis pedis pul Vascular exam: PRESENT: normal capillary refill GI/Abdominal exam: PRESENT: normal bowel sounds, soft. ABSENT: distended, guarding, mass, organolmegaly, rebound, tenderness Rectal exam: PRESENT: deferred Extremities exam: PRESENT: full ROM. ABSENT: calf tenderness, clubbing, pedal edema Neurological exam: PRESENT: alert, awake, oriented to person, oriented to place, oriented to time, oriented to situation, CN II-XII grossly intact. ABSENT: motor sensory deficit Psychiatric exam: PRESENT: appropriate affect, normal mood. ABSENT: homicidal ideation, suicidal ideation Skin exam: PRESENT: dry, intact, warm. ABSENT: cyanosis, rash Results Laboratory Results: 01/29/19 04:22 01/29/19 07:30 01/28/19 01/28/19 01/29/19 12:08 12:08 04:22 WBC 9.1 6.5 RBC 3.64 L 3.64 L Hgb 12.1 L 12.1 L Hct 36.2 L 36.0 L MCV 99 H 99 H MCH 33.2 33.3 MCHC 33.5 33.7 RDW 17.6 H 17.2 H Plt Count 162 165 Seg Neutrophils % 79.6 H Lymphocytes % 10.4 L Monocytes % 8.0 Eosinophils % 1.3 Basophils % 0.7 Absolute Neutrophils 7.3 Absolute Lymphocytes 1.0 Absolute Monocytes 0.7 Absolute Eosinophils 0.1 Absolute Basophils 0.1 Sodium 140.4 Potassium 4.1 Chloride 102 Carbon Dioxide 28 Anion Gap 10 BUN 37 H Creatinine 11.21 H Est GFR ( Amer) 6 L Est GFR (Non-Af Amer) 5 L Glucose 94 Calcium 9.0 Total Bilirubin 1.0 AST 25 ALT 21 Alkaline Phosphatase 78 Total Protein 7.5 Albumin 4.1 01/29/19 01/29/19 04:22 07:30 WBC RBC Hgb Hct MCV MCH MCHC RDW Plt Count Seg Neutrophils % Lymphocytes % Monocytes % Eosinophils % Basophils % Absolute Neutrophils Absolute Lymphocytes Absolute Monocytes Absolute Eosinophils Absolute Basophils Sodium Cancelled 136.1 L Potassium Cancelled 4.9 Chloride Cancelled 99 Carbon Dioxide Cancelled 23 Anion Gap Cancelled 14 BUN Cancelled 53 H Creatinine Cancelled 12.78 H Est GFR ( Amer) Cancelled 5 L Est GFR (Non-Af Amer) Cancelled 4 L Glucose Cancelled 116 H Calcium Cancelled 9.6 Total Bilirubin AST ALT Alkaline Phosphatase Total Protein Albumin 01/28/19 12:08 NT-Pro-B Natriuret Pep 8460 H Impressions: Chest X-Ray 01/28/19 11:51 IMPRESSION: COPD. Fibrotic scarring right upper lobe. Assessment and Plan - Diagnosis (1) Hypertensive urgency Is this a current diagnosis for this admission?: Yes Plan: Improved; blood pressures today 170/80s. He was admitted with blood pressure 221/107, 202/117. Received clonidine 0.2 mg p.o. and amlodipine 15 mg x 1 each overnight He has been admitted to the medical floor on continuous cardiac telemetry Continue his home dose losartan 50 mg daily. Continue home dose furosemide 800 mg Wednesday, Wednesday, , Wednesday. Start amlodipine 5 mg twice daily. IV hydralazine as needed for blood pressure control; has required 2 doses over the last 24 hours. Renal/low-sodium diet. (2) COPD exacerbation Is this a current diagnosis for this admission?: Yes Plan: Slight improvement; continues to have rhonchi and wheezing throughout, though no speaking in full sentences and breathing easily patient reports that dyspnea while at rest is resolved though he continues to become short of breath with minimal activity. Continue supplemental oxygen as needed to maintain saturations >89% We will continue IV Solu-Medrol; have decreased dose today. Continue scheduled and as needed nebulizer treatments. Continue Mucinex twice daily. Flutter valve to bedside. (3) CHF (congestive heart failure) Qualifiers: Heart failure type: unspecified Heart failure chronicity: chronic Qualified Code(s): I50.9 - Heart failure, unspecified Is this a current diagnosis for this admission?: Yes Plan: Patient reports history of CHF related to fluid volume overload/ASD R. Echocardiogram December 26 revealed normal LVEF with grade 2 diastolic dysfunction. LVH, dilated cardiomyopathy, moderate pulmonary hypertension. proBNP 8400, decreased from previously Appears compensated and without exacerbation at this time. Monitor daily weights, strict I&O's, low-sodium diet. Antihypertensives as above. (4) End stage renal disease on dialysis Is this a current diagnosis for this admission?: Yes Plan: Patient reports that he received adequate dialysis on Wednesday. Next due on Wednesday. CMP pending. Nephrology is consulted for dialysis; nursing pipelines supervisor notified of need for dialysis tomorrow. Renal diet. Continue home dose Veltassa. - Time Time Spent with patient: 25-34 minutes Medications reviewed and adjusted accordingly: Yes Anticipated discharge: Home Within: within 24 hours
[2019-01-29 17:48] LABS: APPEARANCE,URINE CLEAR; BILIRUBIN,URINE NEGATIVE (NEGATIVE); COLOR,URINE STRAW; GLUCOSE, URINE 50 mg/dL (NEGATIVE); KETONES,URINE NEGATIVE (NEGATIVE); LEUKOCYTE ESTERASE,URINE NEGATIVE (NEGATIVE); NITRITE,URINE NEGATIVE (NEGATIVE); PROTEIN,URINE 100 mg/dL (NEGATIVE); URINE SPECIFIC GRAVITY 1.009; UROBILINOGEN,URINE NEGATIVE mg/dL (<2.0)
[2019-01-29 18:10] LABS: URINE AMPHETAMINES SCREEN NEGATIVE; URINE BARBITURATES SCREEN NEGATIVE; URINE BENZODIAZEPINES SCREEN NEGATIVE; URINE COCAINE SCREEN NEGATIVE; URINE MARIJUANA (THC) SCREEN NEGATIVE; URINE METHADONE SCREEN NEGATIVE; URINE PHENCYCLIDINE SCREEN NEGATIVE
[2019-01-29] MEDS ORDERED: DOCUSATE SODIUM 100 MG CAPSULE PO PRN (18:58)
[2019-01-29] MEDS ORDERED: MAGNESIUM HYDROXIDE SUSP 30 ML UDCUP PO PRN (18:58)
[2019-01-29] MEDS ORDERED: LACTULOSE SYRUP 20 GM/30 ML UDCUP PO PRN (18:59)
[2019-01-30] MEDS: HYDRALAZINE HCL INJ/PF 20 MG/1 ML SDV IV PRN (00:28)
[2019-01-30] MEDS: IPRATROPIUM/ALBUTEROL 0.5-2.5 MG/3 ML AMPUL NEB SCH ×3 (01:40→13:47)
[2019-01-30] MEDS: HEPARIN SOD (PORCINE) 5,000 UNIT/ML 1 ML VIAL SUBCUT SCH (05:06)
[2019-01-30 05:14] LABS: HEMATOCRIT 36.9 % (37.9-51.0); HEMOGLOBIN 12.3 g/dL (13.5-17.0); MEAN CORPUSCULAR HEMOGLOBIN 32.9 pg (27.0-33.4); MEAN CORPUSCULAR HGB CONC 33.3 g/dL (32.0-36.0); MEAN CORPUSCULAR VOLUME 99 fl (80-97); PLATELET COUNT 185 10^3/uL (150-450); RED BLOOD COUNT 3.74 10^6/uL (4.35-5.55); WHITE BLOOD COUNT 8.5 10^3/uL (4.0-10.5)
[2019-01-30] MEDS: METHYLPREDNISOLONE INJ 40 MG/1 ML SDV IV SCH (05:15)
[2019-01-30 05:37] LABS: ANION GAP 17 (5-19); BLOOD UREA NITROGEN 70 mg/dL (7-20); CARBON DIOXIDE 20 mmol/L (22-30); CHLORIDE 98 mmol/L (98-107); GLUCOSE 108 mg/dL (75-110); POTASSIUM 5.1 mmol/L (3.6-5.0)
[2019-01-30] MEDS: LOSARTAN POTASSIUM 50 MG TABLET PO SCH (11:39)
[2019-01-30] MEDS: FAMOTIDINE INJ/PF 20 MG/2 ML SDV IV SCH (11:39)
[2019-01-30] MEDS: GUAIFENESIN 600 MG TABLET.SA PO SCH (11:41)
[2019-01-30] MEDS: AMLODIPINE BESYLATE 5 MG TABLET PO SCH (11:41)
--- NOTE | 2019-01-30 12:24 | PDOC CONSULTATION ---
Consultation Consult Date: 01/30/19 Provider Consulted: Dorys MYLES Consult reason:: ESRD for hemodialysis. History of Present Illness Admission Date/PCP: 01/28/19 15:24 History of Present Illness: YUDITH DRAKE JR is a 58 year old male with past medical history of ESRD on MWF dialysis schedule, CHF, hypertension, obesity, and substance abuse who presents to the emergency department today with a complaint of sub acute onset of shortness of breath last night. No complaints of any fever or chills. No accompanying chest pains. Evaluations in the ER revealed that the patient had acute COPD with hypertensive urgency and was therefore admitted. He denies any drug use of the moment like cocaine. Patient currently undergoing dialysis as I see him. Patient denies any history of chest pain and he states his breathing is a whole lot better. Vital signs are stable with improved blood pressure. His labs and medications were reviewed with him. Dialysis orders were reviewed with the treating dialysis nurse. Past Medical History Cardiac Medical History: Reports: Hypertension-primary Denies: Coronary Artery Disease, Myocardial Infarction Pulmonary Medical History: Reports: Asthma, Chronic Obstructive Pulmonary Diseas e (COPD), Pneumonia EENT Medical History: Reports: None Neurological Medical History: Reports: None Endocrine Medical History: Reports: Obesity Renal/ Medical History: Reports: End Stage Renal Disease, Hyperkalemia, Secondary Hyperparathyroidism Malignancy Medical History: Reports: None GI Medical History: Reports: None Musculoskeltal Medical History: Reports: Gout Denies: Arthritis - HX OF GOUT Skin Medical History: Reports: None Psychiatric Medical History: Reports: Substance Abuse Infectious Medical History: Reports: None Hematology Medical History: Reports Anemia of Chronic Kidney Disease Past Surgical History Past Surgical History: Reports: None Social History Smoking Status: Never Smoker Frequency of Alcohol Use: None Hx Recreational Drug Use: Yes Drugs: Cocaine, Marijuana Hx Prescription Drug Abuse: Yes - Advance Directive Resuscitation Status: Full Code Family History Parental Family History Reviewed: No Children Family History Reviewed: No Sibling(s) Family History Reviewed.: No Medication/Allergy Home Medications: Albuterol Sulfate [Proair Hfa Inhalation Aerosol 8.5 gm Mdi] 2 puff IH QIDP PRN 01/28/19 Furosemide [Lasix 80 mg Tablet] 80 mg PO SUTUTHSA@1000 01/28/19 Losartan Potassium [Cozaar 50 mg Tablet] 50 mg PO Q12 01/28/19 Patiromer Calcium Sorbitex [Veltassa] 8.4 gm PO DAILYP PRN 01/28/19 Sildenafil Citrate [Viagra] 50 mg PO DAILYP PRN 01/28/19 Allergies/Adverse Reactions: hydrochlorothiazide [Hydrochlorothiazide] Allergy (Verified 05/13/18 12:14) lisinopril [Lisinopril] Allergy (Verified 05/13/18 12:14) Angioneurotic Edema Review of Systems Constitutional: PRESENT: fatigue. ABSENT: anorexia, chills, fever(s), headache(s), night sweats, weakness Nose, Mouth, and Throat: ABSENT: mouth pain, sore throat Cardiovascular: PRESENT: dyspnea on exertion. ABSENT: chest pain, edema, orthropnea, palpitations Respiratory: PRESENT: dyspnea. ABSENT: cough, hemoptysis Gastrointestinal: PRESENT: nausea. ABSENT: abdominal pain, bloating, constipation, diarrhea, dysphagia, heartburn, vomiting Genitourinary: ABSENT: dysuria, hematuria Integumentary: ABSENT: lesions, pruritus Neurological: ABSENT: abnormal movements, abnormal speech, confusion, convulsions, focal weakness, frequent falls, lack of coordination Hematologic/Lymphatic: ABSENT: easy bruising, lymphadenopathy Physical Exam Vital Signs: Temp Pulse Resp BP Pulse Ox 97.6 F 83 18 166/71 H 94 01/30/19 03:30 01/30/19 09:11 01/30/19 09:11 01/30/19 03:30 01/30/19 09:11 Intake & Output 01/29/19 01/30/19 01/31/19 06:59 06:59 06:59 Intake Total 887 1042 Balance 887 1042 Weight 91.2 kg 92.3 kg General appearance: PRESENT: no acute distress Eye exam: PRESENT: EOMI, PERRLA Ear exam: PRESENT: normal external ear exam Mouth exam: PRESENT: neck supple. ABSENT: moist Neck exam: ABSENT: lymphadenopathy, meningismus, tenderness, thyromegaly, tracheal deviation Respiratory exam: PRESENT: clear to auscultation micah, crackles, decreased breath sounds, rhonchi Cardiovascular exam: PRESENT: +S1, +S2 GI/Abdominal exam: PRESENT: normal bowel sounds, soft. ABSENT: organomegaly, tenderness Extremities exam: ABSENT: pedal edema Neurological exam: PRESENT: alert, awake, oriented to person, oriented to place Psychiatric exam: PRESENT: appropriate affect Skin exam: ABSENT: cyanosis, erythema, mottled Results Laboratory Results: 01/30/19 04:56 01/30/19 04:56 01/29/19 01/30/19 01/30/19 17:20 04:56 04:56 WBC 8.5 RBC 3.74 L Hgb 12.3 L Hct 36.9 L MCV 99 H MCH 32.9 MCHC 33.3 RDW 18.0 H Plt Count 185 Sodium 135.4 L Potassium 5.1 H Chloride 98 Carbon Dioxide 20 L Anion Gap 17 BUN 70 H Creatinine 15.73 H Est GFR ( Amer) 4 L Est GFR (Non-Af Amer) 3 L Glucose 108 Calcium 10.0 Urine Color STRAW Urine Appearance CLEAR Urine pH 8.0 Ur Specific [place] 1.009 Urine Protein 100 H Urine Glucose (UA) 50 H Urine Ketones NEGATIVE Urine Blood SMALL H Urine Nitrite NEGATIVE Ur Leukocyte Esterase NEGATIVE Urine WBC (Auto) 1 Urine RBC (Auto) 0 01/28/19 12:08 NT-Pro-B Natriuret Pep 8460 H Impressions: Chest X-Ray 01/28/19 11:51 IMPRESSION: COPD. Fibrotic scarring right upper lobe. Assessment & Plan - Diagnosis (1) COPD exacerbation Is this a current diagnosis for this admission?: Yes Plan: Patient seems to be improving to current medication regimens. Monitor. (2) End stage renal disease on dialysis Is this a current diagnosis for this admission?: Yes Plan: Patient seen while undergoing dialysis. Undergoing dialysis without any issues. Vital signs are stable. Dialysis is being supervised to ensure safe and smooth procedure. Plan to remove between 1 and 2 L as tolerated. Dialysis orders were reviewed with the treating dialysis nurse. (3) Hypertensive urgency Is this a current diagnosis for this admission?: Yes Plan: Improved. Continue to monitor. See response to hemodialysis. (4) Hyperkalemia Plan: Mild. Should respond to dialysis. Advised proper low potassium diet.
[2019-01-30 12:46] VITALS: BP 169/81
--- NOTE | 2019-01-30 15:23 | PDOC DISCHARGE SUMMARY ---
General - Admit/Disc Date/PCP Admission Date/Primary Care Provider: 01/28/19 15:24 Discharge Date: 01/30/19 - Additional Information Resuscitation Status: Full Code Discharge Diet: Other (Comments) Discharge Activity: Activity As Tolerated Prescriptions: Amlodipine Besylate [Norvasc 5 mg Tablet] 5 mg PO BID #60 tablet Fluticasone/Salmeterol [Advair 250-50 Diskus 14 Dose/Diskus] 1 inh IH Q12H #1 inhaler Ipratropium/Albuterol Sulfate [Duoneb 3 ml Ampul] 3 ml NEB Q6H PRN #90 vial.neb PRN Reason: Tiotropium [place] [Spiriva Respimat] 4 gm IH DAILY #30 mist.inhal Home Medications: Albuterol Sulfate [Proair HFA Inhalation Aerosol 8.5 gm MDI] 2 puff IH QIDP PRN 01/28/19 Furosemide [Lasix 80 mg Tablet] 80 mg PO SUTUTHSA@1000 01/28/19 Losartan Potassium [Cozaar 50 mg Tablet] 50 mg PO Q12 01/28/19 Patiromer Calcium Sorbitex [Veltassa] 8.4 gm PO DAILYP PRN 01/28/19 Sildenafil Citrate [Viagra] 50 mg PO DAILYP PRN 01/28/19 Amlodipine Besylate [Norvasc 5 mg Tablet] 5 mg PO BID #60 tablet 01/30/19 Fluticasone/Salmeterol [Advair 250-50 Diskus 14 Dose/Diskus] 1 inh IH Q12H #1 inhaler 01/30/19 Guaifenesin [Mucinex Sr 600 mg Tablet.sa] 600 mg PO Q12 tablet.sa 01/30/19 Ipratropium/Albuterol Sulfate [Duoneb 3 ml Ampul] 3 ml NEB Q6H PRN #90 vial.neb 01/30/19 Tiotropium [place] [Spiriva Respimat] 4 gm IH DAILY #30 mist.inhal 01/30/19 History of Present Illness Patient complains of: Shortness of breath and wheezing History of Present Illness: YUDITH DRAKE JR is a 58 year old male with past medical history of ESRD on MWF dialysis schedule, CHF, hypertension, obesity, and substance abuse who presents to the emergency department today with a complaint of sudden onset of shortness of breath last night the progressively worsened until he called EMS today. He received nebulizer treatments and Solu-Medrol 125 mg via EMS. He is received additional nebulizer treatment and 2 g IV magnesium since arrival to the emergency department with some improvement in his dyspnea. He is maintaining oxygen saturations in the mid 90s on room air. Evaluation in the emergency department found BP 221/107, tachypnea, wheezing/rhonchi throughout despite treatment. Evaluation including chest x-ray demonstrating chronic changes related to COPD and EKG showing sinus rhythm with first-degree block and probable LVH. Laboratory evaluation was not undertaken. Due to the patient's continued extensive wheezing, he was referred to the hospitalist service for admission and management of the above-stated complaints and findings. Hospital Course Hospital Course: Patient was admitted to the hospitalist service on telemetry. Started on IV Solu-Medrol and nebulizer treatments. He was placed on oxygen at 2 L/min. Antihypertensives were titrated. His blood pressure improved quickly with his improvement of his respiratory status. Steroids were tapered over the weekend. He underwent hemodialysis today is a normal scheduled day. He had borderline hyperkalemia. He had no symptoms. This likely will resolve with continued hemodialysis. Consult was placed by his senior c web developer Dr. Mata. After dialysis, his oxygen was able to be weaned to room air. He has no further wheezing. He is asking to go home. We will get him a nebulizer for home as well as DuoNeb therapy. He states he is also out of his Spiriva and his Advair. Prescriptions were written for these as well. We added Norvasc 5 mg twice daily to his blood pressure regimen. His blood pressures well controlled now at the present time. He will follow-up with his primary care provider in 1 week. He will continue dialysis on Wednesdays and Fridays. Physical Exam Vital Signs: Temp Pulse Resp BP Pulse Ox 98.6 F 80 16 169/81 H 98 01/30/19 13:59 01/30/19 13:59 01/30/19 13:59 01/30/19 13:59 01/30/19 13:59 Intake & Output 01/29/19 01/30/19 01/31/19 06:59 06:59 06:59 Intake Total 887 1042 658 Balance 887 1042 658 Weight 91.2 kg 92.3 kg General appearance: PRESENT: no acute distress, well-developed, well-nourished Head exam: PRESENT: atraumatic, normocephalic Eye exam: PRESENT: conjunctiva pink, EOMI, PERRLA. ABSENT: scleral icterus Ear exam: PRESENT: normal external ear exam Mouth exam: PRESENT: moist, tongue midline Teeth exam: PRESENT: poor dentation Neck exam: ABSENT: carotid bruit, JVD, lymphadenopathy, thyromegaly Respiratory exam: PRESENT: clear to auscultation micah. ABSENT: rales, rhonchi, wheezes Cardiovascular exam: PRESENT: RRR. ABSENT: diastolic murmur, rubs, systolic mur mur Pulses: PRESENT: normal dorsalis pedis pul Vascular exam: PRESENT: normal capillary refill GI/Abdominal exam: PRESENT: normal bowel sounds, soft. ABSENT: distended, guarding, mass, organolmegaly, rebound, tenderness Rectal exam: PRESENT: deferred Extremities exam: PRESENT: full ROM. ABSENT: calf tenderness, clubbing, pedal edema Neurological exam: PRESENT: alert, awake, oriented to person, oriented to place, oriented to time, oriented to situation, CN II-XII grossly intact. ABSENT: motor sensory deficit Psychiatric exam: PRESENT: appropriate affect, normal mood. ABSENT: homicidal ideation, suicidal ideation Results Laboratory Results: 01/30/19 04:56 01/30/19 04:56 01/29/19 01/30/19 01/30/19 17:20 04:56 04:56 WBC 8.5 RBC 3.74 L Hgb 12.3 L Hct 36.9 L MCV 99 H MCH 32.9 MCHC 33.3 RDW 18.0 H Plt Count 185 Sodium 135.4 L Potassium 5.1 H Chloride 98 Carbon Dioxide 20 L Anion Gap 17 BUN 70 H Creatinine 15.73 H Est GFR ( Amer) 4 L Est GFR (Non-Af Amer) 3 L Glucose 108 Calcium 10.0 Urine Color STRAW Urine Appearance CLEAR Urine pH 8.0 Ur Specific [place] 1.009 Urine Protein 100 H Urine Glucose (UA) 50 H Urine Ketones NEGATIVE Urine Blood SMALL H Urine Nitrite NEGATIVE Ur Leukocyte Esterase NEGATIVE Urine WBC (Auto) 1 Urine RBC (Auto) 0 01/28/19 12:08 NT-Pro-B Natriuret Pep 8460 H Impressions: Chest X-Ray 01/28/19 11:51 IMPRESSION: COPD. Fibrotic scarring right upper lobe. Qualifiers - * PATIENT BEING DISCHARGED WITH ANY OF THE FOLLOWING DIAGNOSIS: No Acute Heart Failure - Is this a Heart Failure Patient?: No Plan Discharge Plan: Follow up with primary care provider 1-2 weeks Continue dialysis as normally scheduled Time Spent: Less than 30 Minutes
== END 2019-01-30 15:10 | disposition home or self-care (01) ==
LOC: ER 11:43 → EH 15:24 → 5 16:35
PROVIDERS: ADMIT Hospitalist; ATTEND Hospitalist
PROC: 5A1D70Z Performance of Urinary Filtration, Intermittent, Less than 6 Hours Per Day (ICD-10-PCS; principal; 2019-01-28)
DX: I16.0 Hypertensive urgency (principal); I13.2 Hypertensive heart and chronic kidney disease with heart failure and with stage 5 chronic kidney disease, or end stage renal disease; E87.5 Hyperkalemia; I50.9 Heart failure, unspecified; N18.6 End stage renal disease; J44.1 Chronic obstructive pulmonary disease with (acute) exacerbation; I45.10 Unspecified right bundle-branch block; I42.0 Dilated cardiomyopathy; I27.20 Pulmonary hypertension, unspecified; F19.11 Other psychoactive substance abuse, in remission; Z79.899 Other long term (current) drug therapy; Z99.2 Dependence on renal dialysis
CPT/HCPCS: 93005; 94640 ×4; 99291; 96360; 96361; 36415 ×3; 85025; 85027 ×2; 80048 ×2; 80053; 81001; 80307; 83880; 71045; 93010; G0257; G0378 ×4; A9270 ×15; J0360 ×3; J2920 ×3; J3475; J3490 ×2; S0028 ×2; J7620

== ENCOUNTER → 2020-04-16 | Outpatient (CLI) | payer MEDICARE ==
--- NOTE | 2020-04-18 15:46 | RADIOLOGY REPORT (SQ) ---
EXAM DESCRIPTION: CT CHEST WITHOUT IMAGES COMPLETED DATE/TIME: 04/16/2020 7:41 am REASON FOR STUDY: PULMONARY NODULE R91.1 SOLITARY PULMONARY NODULE COMPARISON: 01/21/2011 TECHNIQUE: CT scan performed of the chest without intravenous contrast. Images reviewed with lung, soft tissue and bone windows. Reconstructed coronal and sagittal MPR images reviewed. All images st ored on PACS. All CT scanners at this facility use dose modulation, iterative reconstruction, and/or weight based d osing when appropriate to reduce radiation dose to as low as reasonably achievable (ALARA). [facility]: Dose Right [facility]: CareDose [facility]: Dose Right [facility]: Teradose 4D [facility]: [employer] RADIATION DOSE: CT Rad equipment meets quality standard of care and radiation dose reduction techniq ues were employed. CTDIvol: 11.6 mGy. DLP: 528 mGy-cm. mGy. LIMITATIONS: No technical limitations. FINDINGS: LUNGS AND PLEURA: Patchy reticulonodular infiltrate in the right upper lobe abutting the f issure. There is associated bronchiectasis. There has been progression since the prior. 15 mm pleu ral-based part solid nodule left lower lobe. HILAR AND MEDIASTINAL STRUCTURES: No identified masses or abnormal nodes. No obvious aneurysm. HEART AND VASCULAR STRUCTURES: No aneurysm. No pericardial effusion. UPPER ABDOMEN: Cholelithiasis. Limited exam. THYROID AND OTHER SOFT TISSUES: No masses. No adenopathy. BONES: No significant finding. HARDWARE: None in the chest. OTHER: No other significant findings. IMPRESSION: Reticulonodular infiltrates in the right upper lobe and to lesser degree left lower lobe . TECHNICAL DOCUMENTATION: JOB ID: [id number] Quality ID # [id number]: Final reports with documentation of one or more dose reduction techniques (e.g., Au tomated exposure control, adjustment of the mA and/or kV according to patient size, use of iterative reconstruction technique) 2010 [employer]- All Rights Reserved Reading location - IP/workstation name: [email or web address]
== END ==
LOC: RAD 07:37
PROVIDERS: ATTEND Internal Medicine Pulmonary Disease
DX: R91.1 Solitary pulmonary nodule (principal)
CPT/HCPCS: 71250

== ENCOUNTER → 2020-04-30 | Outpatient (CLI) | payer MEDICAID, MEDICARE ==
--- NOTE | 2020-05-01 11:39 | RADIOLOGY REPORT (SQ) ---
EXAM DESCRIPTION: PET CT SKULL/THIGH IMAGES COMPLETED DATE/TIME: 04/30/2020 3:03 pm REASON FOR STUDY: SOLITARY PULMONARY NODULE R91.1 SOLITARY PULMONARY NODULE COMPARISON: CT of the chest from 04/16/2020. RADIONUCLIDE AND DOSE: 10.1 mCi F18 FDG The route of agent administration: Intravenous FASTING BLOOD SUGAR: 89 mg/dl CONTRAST TYPE AND DOSE: No CT contrast given. TECHNIQUE: Blood glucose level was verified. Above dose of FDG was injected intravenously. 2-D seg mented attenuation correction images were obtained from the base of the skull to the midthighs. Nonc ontrast CT images were obtained for attenuation correction and fusion with emission images. CT image s were performed without oral or intravenous contrast and are not sensitive for parenchymal lesions. A series of overlapping emission PET images were obtained. Images reviewed and manipulated at [facility] work station by the radiologist. Images stored on PACS. LIMITATIONS: None. FINDINGS: HEAD AND NECK: No areas of abnormal metabolic activity in the soft tissues of the head and neck. CHEST: The reticulonodular opacities in the right upper lobe associated with bronchiectasis and bronc hial wall thickening are unchanged and demonstrate faint FDG uptake with a maximum SUV that is below the degree of uptake within the mediastinal blood pool. The reticulonodular opacities in the left lo wer lobe have resolved. There are no areas of abnormal metabolic activity in the chest. ABDOMEN AND PELVIS: The liver demonstrates homogeneous FDG uptake with an average SUV of 2. There is expected physiologic activity throughout the gastrointestinal tracts. There no areas of abnormal me tabolic activity in the abdomen and pelvis. PROXIMAL LOWER EXTREMITIES: No areas of abnormal metabolic activity in the soft tissues of the lower extremities. BONES: No areas of abnormal metabolic activity in the skeleton. ADDITIONAL CT FINDINGS: Bilateral gynecomastia, cholelithiasis, atrophy of the kidneys (left greater than right), and prostatomegaly associated with circumferential thickening of the urinary bladder wal l - correlate for chronic bladder outlet obstruction OTHER: No other findings. IMPRESSION: The retroocular nodular opacities in the right upper lobe associated with bronchiectasis and bronchial wall thickening are unchanged and demonstrate faint FDG uptake with a maximum SUV that is below the degree of uptake within the mediastinal blood pool. The reticulonodular opacities in t he left lower lobe have resolved. These opacities are likely inflammatory or infectious in etiology. TECHNICAL DOCUMENTATION: JOB ID: [id number] 2010 [employer]- All Rights Reserved Reading location - IP/workstation name: [email or web address]
== END ==
LOC: RAD 07:37
PROVIDERS: ATTEND Internal Medicine Pulmonary Disease
DX: R91.1 Solitary pulmonary nodule (principal)
CPT/HCPCS: 78815; A9552